=== PATIENT | male | born 1975 | race Caucasian/White ===

== ENCOUNTER → 2017-05-25 09:05 | Outpatient (CLI) | payer MEDICARE, SELFPAY ==
[2017-05-25 11:23] LABS: Alanine Aminotransferase 43 U/L (12-78); Albumin Level 4.3 gm/dL (3.4-5.0); Alkaline Phosphatase 69 U/L (46-116); Aspartate Amino Transferase 23 U/L (15-37); Bilirubin,Direct 0.1 mg/dL (0.0-0.2); Bilirubin,Total 0.4 mg/dL (0.2-1.0); Chol/HDL Ratio 4.2 (1-3.5); Cholesterol 214 mg/dL (140-200); HDL Cholesterol 51 mg/dL (27-67); LDL Cholesterol 150 mg/dL (0-130); Total Protein,Serum 8.4 gm/dL (6.4-8.2); Triglycerides 64 mg/dL (30-200); VLDL Cholesterol 13 mg/dL (0-40)
== END ==
PROVIDERS: Visit Provider Internal Medicine
DX: E11.9 Type 2 diabetes mellitus without complications (principal); I25.10 Atherosclerotic heart disease of native coronary artery without angina pectoris; I11.9 Hypertensive heart disease without heart failure; E78.4 Other hyperlipidemia
CPT/HCPCS: 36415; 80061; 80076

== ENCOUNTER → 2017-07-27 08:13 | Outpatient (CLI) | payer MEDICARE, SELFPAY ==
[2017-07-27 09:23] LABS: Alanine Aminotransferase 44 U/L (12-78); Albumin Level 4.4 gm/dL (3.4-5.0); Alkaline Phosphatase 75 U/L (46-116); Aspartate Amino Transferase 35 U/L (15-37); Bilirubin,Direct 0.2 mg/dL (0.0-0.2); Bilirubin,Indirect 0.4 mg/dL (0.0-0.9); Bilirubin,Total 0.6 mg/dL (0.2-1.0); Cholesterol 170 mg/dL (140-200); HDL Cholesterol 56 mg/dL (27-67); LDL Cholesterol 105 mg/dL (0-130); Total Protein,Serum 8.2 gm/dL (6.4-8.2); Triglycerides 43 mg/dL (30-200); VLDL Cholesterol 9 mg/dL (0-40)
== END ==
PROVIDERS: Visit Provider Internal Medicine
DX: E78.4 Other hyperlipidemia (principal); E11.9 Type 2 diabetes mellitus without complications
CPT/HCPCS: 36415; 80061; 80076

== ENCOUNTER → 2018-05-17 09:45 | Outpatient (CLI) | payer MEDICARE, SELFPAY ==
[2018-05-17 11:43] LABS: Alanine Aminotransferase 28 U/L (12-78); Albumin Level 4.5 gm/dL (3.4-5.0); Alkaline Phosphatase 78 U/L (46-116); Aspartate Amino Transferase 18 U/L (15-37); Bilirubin,Direct 0.1 mg/dL (0.0-0.2); Bilirubin,Indirect 0.4 mg/dL (0.0-0.9); Bilirubin,Total 0.5 mg/dL (0.2-1.0); Chol/HDL Ratio 5.7 (1-3.5); Cholesterol 249 mg/dL (140-200); HDL Cholesterol 44 mg/dL (27-67); LDL Cholesterol 188 mg/dL (0-130); Total Protein,Serum 8.4 gm/dL (6.4-8.2); Triglycerides 86 mg/dL (30-200); VLDL Cholesterol 17 mg/dL (0-40)
== END ==
PROVIDERS: Nurse Practitioner Family; PCP Family Medicine; Visit Provider Internal Medicine
DX: I11.9 Hypertensive heart disease without heart failure; I25.10 Atherosclerotic heart disease of native coronary artery without angina pectoris; E11.9 Type 2 diabetes mellitus without complications; E78.49 Other hyperlipidemia
CPT/HCPCS: 36415; 80061; 80076

== ENCOUNTER → 2018-06-21 08:43 | Outpatient (CLI) | payer MEDICARE, SELFPAY ==
[2018-06-21 09:11] LABS: Basophils # 0.1 K/mm3 (0-0.2); Eosinophils # 0.1 K/mm3 (0.0-0.4); Eosinophils % 1.5 % (0.1-12.0); Hematocrit 43.7 % (42.0-52.0); Hemoglobin 14.9 g/dL (14.1-18.0); Lymphocytes # 2.1 K/mm3 (0.7-4.5); Lymphocytes % 29.6 % (10-50); Mean Corpuscular HGB Conc 34.2 g/dL (31.8-35.4); Mean Corpuscular Hemoglobin 29.3 pg (27.0-31.2); Mean Corpuscular Volume 85.7 fl (80-94); Mean Platelet Volume 7.3 fl (7.4-10.4); Monocytes # 0.5 K/mm3 (0.1-1.0); Neutrophils # 4.2 K/mm3 (1.8-7.8); Neutrophils % 60.8 % (37.0-80.0); Platelet Count 468 K/mm3 (142-424); Red Cell Distribution Width 13.2 % (11.5-17.5); White Blood Count 6.9 K/mm3 (4.8-10.8)
[2018-06-21 11:20] LABS: Anion Gap 15.7 mEq/L (5-15); Blood Urea Nitrogen 20 mg/dL (7-18); Carbon Dioxide 27 mmol/L (21.0-32.0); Chloride 98 mmol/L (98-107); Creatinine,Serum 1.03 mg/dL (0.70-1.30); Estimated Glomerular Filt Rate 79 ml/min (>60); GFR (African American) 95 ML/MIN (>60); Glucose 156 mg/dL (74-106); Potassium 4.7 mmoL/L (3.5-5.1); Sodium 136 mmol/L (136-145)
== END ==
PROVIDERS: Visit Provider Surgery
DX: K40.20 Bilateral inguinal hernia, without obstruction or gangrene, not specified as recurrent (principal); K40.90 Unilateral inguinal hernia, without obstruction or gangrene, not specified as recurrent
CPT/HCPCS: 36415; 80048; 85025

== ENCOUNTER → 2018-11-15 09:29 | Outpatient (CLI) | payer MEDICARE, SELFPAY ==
[2018-11-15 10:55] LABS: Alanine Aminotransferase 33 U/L (12-78); Albumin Level 4.4 gm/dL (3.4-5.0); Alkaline Phosphatase 74 U/L (46-116); Aspartate Amino Transferase 18 U/L (15-37); Bilirubin,Direct 0.1 mg/dL (0.0-0.2); Bilirubin,Indirect 0.2 mg/dL (0.0-0.9); Bilirubin,Total 0.3 mg/dL (0.2-1.0); Chol/HDL Ratio 4.6 (1-3.5); Cholesterol 226 mg/dL (140-200); HDL Cholesterol 49 mg/dL (27-67); LDL Cholesterol 162 mg/dL (0-130); Total Protein,Serum 8.1 gm/dL (6.4-8.2); Triglycerides 74 mg/dL (30-200); VLDL Cholesterol 15 mg/dL (0-40)
== END ==
PROVIDERS: Visit Provider Internal Medicine
DX: E78.5 Hyperlipidemia, unspecified (principal); I11.9 Hypertensive heart disease without heart failure; I20.8 Other forms of angina pectoris
CPT/HCPCS: 36415; 80061; 80076

== ENCOUNTER → 2019-11-14 07:38 | Outpatient (CLI) | payer MEDICARE, SELFPAY ==
--- NOTE | 2019-11-14 07:39 | CA_ITS ---
APPROVED REPORT EXAM: Comprehensive 2D, Doppler, and color-flow Echocardiogram Cloud Automation Tester: Karine Landeros RVT Ht: 5 ft 5 in Wt: 210lbs BSA: 2.02 BP: 142/86 mmHg Indications: CAD,HTN,STENT,DM,HLD CP 2D Dimensions LVOT 1.83 cm (M/F) 1.5-2.5 M-Mode Dimensions RVDd 2.65 cm (0.9-2.6) LVDd 4.88 cm (3.5-5.7) LVDs 3.06 cm (3.5-5.7) IVSd 0.95 cm (0.6-1.1) PWd 0.87 cm (0.6-1.1) EF (Teich) 67.10% FS 37.30% EDV (Teich) 111.70 mL ESV (Teich) 36.70 mL LV Diastology E/A Ratio 0.79 Mitral Valve MV A Velocity 74.00 (40-130 cm/s) Left Ventricle Left atrium is mildly enlarged, left ventricle is normal size, mild concentric left ventricular hypertrophy, visually estimated ejection fraction 55% with no regional wall motion abnormality, grade 1 diastolic dysfunction seen without tissue Doppler evidence of raise left atrial pressure. Right Ventricle Right atrium and right ventricle are mildly enlarged with normal contractility. Aortic Valve Aortic valve is minimally thickened and fibrosed, there is no aortic stenosis or aortic insufficiency. Mitral Valve Mitral valve is grossly normal, there is mild mitral regurgitation. Tricuspid Valve Tricuspid valve grossly normal, there is mild tricuspid regurgitation, regurgitation jet velocity is inadequate for calculation of the right ventricular systolic pressure. Pulmonic Valve Pulmonic valve is poorly visualized. Great Vessels Aortic root is normal size. Pericardium No significant pericardial effusion noted. Conclusion 1. Mild biatrial enlargement, normal left ventricular size, mild concentric left ventricular hypertrophy, visually estimated ejection fraction 55% with no regional wall motion abnormality, grade 1 diastolic dysfunction seen without tissue Doppler evidence of raise left atrial pressure. 2. Mildly enlarged right ventricle with normal contractility. 3. Mild mitral and tricuspid regurgitation. 4. No significant pericardial effusion noted. Electronically signed by : Germán Pantoja, 11/14/2019 20:59:59
== END ==
PROVIDERS: PCP Family Medicine; Visit Provider Urology
DX: E78.5 Hyperlipidemia, unspecified (principal); I11.9 Hypertensive heart disease without heart failure; I20.8 Other forms of angina pectoris
CPT/HCPCS: 93306

== ENCOUNTER → 2019-11-15 07:13 | Outpatient (CLI) | payer MEDICARE, SELFPAY ==
[2019-11-15 09:03] LABS: Alanine Aminotransferase 25 U/L (12-78); Aspartate Amino Transferase 28 U/L (17-59); Bilirubin,Unconjugated 0.5 mg/dL (0.0-1.1)
[2019-11-15 09:04] LABS: Albumin Level 4.8 g/dl (3.5-5.0); Alkaline Phosphatase 65 U/L (38-126); Bilirubin,Direct 0.1 mg/dl (0.0-0.4); Bilirubin,Indirect 0.4 mg/dL (0.0-0.9); Bilirubin,Total 0.5 mg/dl (0.2-1.3); Chol/HDL Ratio 4.8 (1-3.5); Cholesterol 195 mg/dl (140-200); HDL Cholesterol 41 mg/dl (40-60); Total Protein,Serum 8.1 g/dl (6.3-8.2); Triglycerides 217 mg/dl (30-150); VLDL Cholesterol 43 mg/dL (0-40)
[2019-11-15 09:15] LABS: Direct LDL Cholesterol 111.11 mg/dL (100-129)
== END ==
PROVIDERS: Visit Provider Nurse Practitioner Family
DX: E11.9 Type 2 diabetes mellitus without complications (principal); I11.9 Hypertensive heart disease without heart failure; I25.10 Atherosclerotic heart disease of native coronary artery without angina pectoris; E78.49 Other hyperlipidemia; Z79.4 Long term (current) use of insulin
CPT/HCPCS: 36415; 80061; 80076

== ENCOUNTER 2021-03-08 19:48 | Emergency (ER) | payer MEDICARE, SELFPAY ==
[2021-03-08 19:44] VITALS: BP 119/72; PULSE 85; RESP 16; TEMP 36.4; O2SAT 95; BMI 39.1
[2021-03-08 19:47] VITALS: BMI 38.2
[2021-03-08 19:56] LABS: Basophils # 0.1 K/mm3 (0-0.2); Basophils % 1.2 % (0.1-2.0); Eosinophils # 0.3 K/mm3 (0.0-0.4); Eosinophils % 2.7 % (0.1-12.0); Hematocrit 44.6 % (42.0-52.0); Hemoglobin 15.4 g/dL (14.1-18.0); Lymphocytes # 4.4 K/mm3 (0.7-4.5); Lymphocytes % 39.6 % (10-50); Mean Corpuscular HGB Conc 34.6 g/dL (31.8-35.4); Mean Corpuscular Hemoglobin 30.2 pg (27.0-31.2); Mean Corpuscular Volume 87.3 fl (80-94); Mean Platelet Volume 8.3 fl (7.4-10.4); Monocytes # 0.7 K/mm3 (0.1-1.0); Monocytes % 5.8 % (1.7-9.3); Neutrophils # 5.7 K/mm3 (1.8-7.8); Neutrophils % 50.7 % (37.0-80.0); Platelet Count 480 K/mm3 (142-424); Red Blood Count 5.11 M/mm3 (4.60-6.20); White Blood Count 11.2 K/mm3 (4.8-10.8)
[2021-03-08 20:00] LABS: Chloride 100 mmol/L (98-107); Potassium 3.5 mmoL/L (3.5-5.1); Sodium 140 mmol/L (136-145)
[2021-03-08 20:02] LABS: Amylase 70 U/L (30-110); Blood Urea Nitrogen 13 mg/dl (9-20); Creatinine Clearance Estimated 172 mL/min (50-200); Estimated Glomerular Filt Rate 105 ml/min (>60); GFR (African American) 126 ML/MIN (>60)
[2021-03-08 20:03] LABS: Alanine Aminotransferase 28 U/L (12-78); Albumin/Globulin Ratio 1.4 (1.1-1.8); Alkaline Phosphatase 81 U/L (38-126); Anion Gap 21.5 mEq/L (5-15); Aspartate Amino Transferase 37 U/L (17-59); Bilirubin,Total 0.3 mg/dl (0.2-1.3); Calcium 9.9 mg/dl (8.4-10.2); Carbon Dioxide 22 mmol/L (22.0-30.0); Globulin 3.7 g/dL (1.3-3.2); Glucose 234 mg/dl (74-100); Lipase 88 U/L (23-300); Total Protein,Serum 8.7 g/dl (6.3-8.2)
--- NOTE | 2021-03-08 20:18 | HMH.EDGENADL ---
ED Disposition Clinical Impression: Alcoholic intoxication Qualifiers: Complication of substance-induced condition: uncomplicated Qualified Code(s): F10.920 - Alcohol use, unspecified with intoxication, uncomplicated Disposition: Left Against Medical Advice Condition on Discharge: Good Referrals: Oz Chapman MD [Primary Care Provider] - - Critical Care Critical Care Time: No Attestation: On 03/08/21, the high probability of a clinically significant, sudden or life threatening deterioration of the following system(s) required my full and direct attention, intervention and personal management. The time I documented below is in addition to time spent performing reported procedures but includes the following listed in this critical care notation. Medical Decision Making - Akhil Inquiry Pt receiving controlled substance: No Vital Signs: 03/08/21 19:44 Temperature 97.5 F L Temperature Source Oral Pulse Rate [Left] 85 Respiratory Rate 16 Blood Pressure [Right Arm] 119/72 Blood Pressure Mean [Right Arm] 87 02 Sat by Pulse Oximetry 95 Oxygen Delivery Method Room Air - Lab Data Lab Results 03/08/21 19:45: WBC 11.2 H, RBC 5.11, Hgb 15.4, Hct 44.6, MCV 87.3, MCH 30.2, MCHC 34.6, RDW 13.0, Plt Count 480 H, MPV 8.3, Neut % (Auto) 50.7, Lymph % (Auto) 39.6, [place] % (Auto) 5.8, Eos % (Auto) 2.7, Baso % (Auto) 1.2, Neut # (Auto) 5.7, Lymph # (Auto) 4.4, [place] # (Auto) 0.7, Eos # (Auto) 0.3, Baso # (Auto) 0.1 03/08/21 19:45: Sodium 140, Potassium 3.5, Chloride 100, Carbon Dioxide 22, Anion Gap 21.5 H, BUN 13, Creatinine 0.80, Estimated Creat Clear 172, Estimated GFR 105, Est GFR ( Amer) 126, Glucose 234 H, Calcium 9.9, Total Bilirubin 0.3, AST 37, ALT 28, Alkaline Phosphatase 81, Total Protein 8.7 H, Albumin 5.0, Globulin 3.7 H, Albumin/Globulin Ratio 1.4, Amylase 70, Lipase 88 03/08/21 19:45: Plasma/Serum Alcohol 183 H Result diagrams: 03/08/21 19:45 03/08/21 19:45 Orders (Tests/Meds): ED MEDICATIONS Generic Name Dose Route Start Last Admin Trade Name Kalpesh PRN Reason Stop Dose Admin Lactated Ringer's 500 mls @ 999 mls/hr 03/08/21 20:30 Lactated Ringer's 1000 Ml Bag IV 03/08/21 21:00 .Q31M RONALDO Discontinued Medications Generic Name Dose Route Start Last Admin Trade Name Kalpesh PRN Reason Stop Dose Admin Sodium Chloride 1,000 mls @ 999 mls/hr 03/08/21 19:48 03/08/21 20:04 Sod Chlor 0.9% 1000ml Bag IV 03/08/21 20:48 999 mls/hr .Q1H1M ONE Administration Ondansetron HCl 4 mg 03/08/21 20:16 Ondansetron 4mg/2ml Vial IV 03/08/21 20:17 ONCE ONE ORDERS Category Date Time Status BMP [Basic Metabolic Panel] Stat Lab 03/08/21 20:18 Ordered Medical Decision Narrative: In summary this is a 45-year-old male with history of diabetes who presents the emergency department for alcohol intoxication. On arrival the patient is alert and oriented with no focal deficits. He is nauseous with mild diffuse abdominal tenderness but otherwise full physical exam is reassuring including neurologic exam. Given this plan to obtain CBC, CMP, lipase. Labs remarkable for anion gap likely related to his heavy alcohol use. Plan to give 2 L of IV fluids along with Zofran and reassess and obtain repeat BMP. On reassessment after fluids the patient was ambulatory in the room and completely asymptomatic. He was clinically sober, alert, and oriented. He was stable on his feet. I informed him that we would like to obtain a repeat BMP make sure his labs had improved however he refused and stated he had to get home to see his kids before they left town and had to get home to take his medication. He was able to voice the possible causes of his elevated anion gap including diabetic emergencies and other life-threatening issues. He states if he feels any worse he will return to the ER but has to leave. Given this he was deemed to have decision-making capacity and left AMA. His is here and has no
[2021-03-08 20:22] LABS: Ethyl Alcohol 183 mg/dl (0-10)
[2021-03-08 21:44] VITALS: BP 143/71; PULSE 80; RESP 15; TEMP 36.7; O2SAT 99
[2021-03-08 22:04] LABS: Blood Urea Nitrogen 13 mg/dl (9-20); Calcium 9.7 mg/dl (8.4-10.2); Carbon Dioxide 28 mmol/L (22.0-30.0); Chloride 98 mmol/L (98-107); Creatinine Clearance Estimated 197 mL/min (50-200); Estimated Glomerular Filt Rate 122 ml/min (>60); GFR (African American) 148 ML/MIN (>60); Glucose 196 mg/dl (74-100); Sodium 136 mmol/L (136-145)
== END 2021-03-08 21:47 | disposition left against medical advice (07) ==
PROVIDERS: Emergency Provider Emergency Medicine; PCP Family Medicine
DX: F10.920 Alcohol use, unspecified with intoxication, uncomplicated (principal); E11.65 Type 2 diabetes mellitus with hyperglycemia; Z79.899 Other long term (current) drug therapy
CPT/HCPCS: 80048; 80053; 82150; 83690; 85025; 96365; 99282

== ENCOUNTER 2021-11-08 08:53 | Emergency (ER) | payer MEDICARE, SELFPAY ==
[2021-11-08 08:53] VITALS: BP 136/81; PULSE 73; RESP 18; TEMP 37; O2SAT 97; BMI 33.5
--- NOTE | 2021-11-08 09:04 | HMH.EDGENADL ---
ED Disposition Clinical Impression: Infected dental caries Disposition: Home, Self-Care Condition on Discharge: Good Instructions: DI for Tooth Abscess, DI for Tooth Decay Additional Instructions: Clindamycin as prescribed. Epps as needed for pain Additional instructions for DENTAL PROBLEMS: See a dentist as soon as possible for further evaluation. Return immediately if you have an uncontrollable fever greater than 102 degrees, difficulty breathing or shortness of breath, persistent vomiting, or inability to swallow. Additional instructions for CONTROLLED SUBSTANCES: You have been prescribed a medication that is a controlled substance. Controlled substances include pain medications known as opiates and sedative nerve medications known as benzodiazepines. Tramadol, fioricet, and gabapentin are also controlled substances. Some common opiates include: Codeine (such as Tylenol #3) Hydrocodone (Vicodin, Lortab, Lorcet, Epps) Oxycodone (Percocet, Percodan, Oxycodone, Oxy IR) Some common benzodiazepines include: Diazepam (Valium) Lorazepam (Ativan) Alprazolam (Xanax) Clonazepam (Klonopin) Oxazepam (Serax) All of these controlled substances are highly addictive and frequently abused. Misuse can and frequently does lead to addiction as well as overdose and . Medication should be stored in a locked cabinet or other secure storage unit. Do not store the medication in a motor vehicle. Short term supplies, 3 days or less, are prescribed because of the highly addictive nature of the medication. Any of the controlled substance medication NOT taken should be disposed of properly and NOT SAVED. The recommended method of disposing of unused medications is: Place the medicines in a sealable plastic bag. If the medicine is a solid, crush it or add water to dissolve it. Add something undesirable (cat litter, coffee grounds, etc.) Dispose of sealed bag in household trash Do not flush or pour unused medicines down a sink or drain. Controlled substances should not be shared, given away or sold. Because of the addictive nature and frequent abuse, these medications are sometimes stolen. These medications should be kept in a safe place where they cannot be stolen. Do not keep them in your car or purse. Lost or stolen prescriptions for controlled substances WILL NOT BE REFILLED in this emergency department, regardless of whether a police report was filed. Prescriptions: Hydrocod/Acet 5/325 mg [Epps 5/325mg tablet] 1 tab PO Q6HP PRN #10 tab PRN Reason: Pain Transmission Status: Sent to [facility] clindamycin HCL [Clindamycin HCl] 300 mg PO QID #40 cap Transmission Status: Pending to [facility] Referrals: Oz Chapman MD [Primary Care Provider] - - Critical Care Critical Care Time: No Attestation: On 11/08/21, the high probability of a clinically significant, sudden or life threatening deterioration of the following system(s) required my full and direct attention, intervention and personal management. The time I documented below is in addition to time spent performing reported procedures but includes the following listed in this critical care notation. Medical Decision Making - Akhil Inquiry Pt receiving controlled substance: Yes Akhli was queried for this patient: Yes Risks and benefits of using a controlled substance: were discussed with pt by me General Adult HPI - General Stated complaint: RT side mouth pain Time Seen by Provider: 11/08/21 09:00 - History of Present Illness HPI narrative: States I get a toothache . It has a hole in it . States that he has had a right upper tooth ache for 1 week with some facial swelling. No fever noted. States he does not have a dentist and cannot get into 1 today so he came to the emergency department. He has been using Orajel. The pain keeps him up at night. - Related Data Home Medications Medication Instructio
[2021-11-08 09:05] VITALS: BP 137/72; PULSE 69; O2SAT 94
--- NOTE | 2021-11-08 09:05 | PC.NURSE ---
0901 ED MD AT BEDSIDE
[2021-11-08 09:15] VITALS: BP 137/72; PULSE 70; RESP 20; TEMP 37; O2SAT 96
--- NOTE | 2021-11-08 09:15 | PC.NURSE ---
Hooked patient up to monitor, call light within reach. He denies a blanket at this time. Voices no other needs.
== END 2021-11-08 09:15 | disposition home or self-care (01) ==
PROVIDERS: Emergency Provider Emergency Medicine; PCP Family Medicine
DX: K02.9 Dental caries, unspecified (principal)
CPT/HCPCS: 99282

== ENCOUNTER → 2022-02-02 08:20 | Outpatient (CLI) | payer MEDICARE, SELFPAY ==
[2022-02-02 10:36] LABS: Alanine Aminotransferase 20 U/L (12-78); Alkaline Phosphatase 78 U/L (38-126); Aspartate Amino Transferase 26 U/L (17-59); Bilirubin,Direct 0.1 mg/dl (0.0-0.4); Bilirubin,Indirect 0.2 mg/dL (0.0-0.9); Bilirubin,Total 0.3 mg/dl (0.2-1.3); Bilirubin,Unconjugated 0.2 mg/dL (0.0-1.1)
[2022-02-02 10:37] LABS: Chol/HDL Ratio 5.9 (1-3.5); Cholesterol 249 mg/dl (140-200); HDL Cholesterol 42 mg/dl (40-60); Total Protein,Serum 8.1 g/dl (6.3-8.2); Triglycerides 211 mg/dl (30-150); VLDL Cholesterol 42 mg/dL (0-40)
[2022-02-02 10:48] LABS: Direct LDL Cholesterol 145.42 mg/dL (100-129)
== END ==
PROVIDERS: PCP Family Medicine; Visit Provider Internal Medicine
DX: E78.2 Mixed hyperlipidemia (principal); I11.9 Hypertensive heart disease without heart failure; I25.10 Atherosclerotic heart disease of native coronary artery without angina pectoris
CPT/HCPCS: 36415; 80061; 80076

== ENCOUNTER → 2022-06-01 10:13 | Outpatient (CLI) | payer MEDICARE, SELFPAY ==
[2022-06-01 11:28] LABS: Bilirubin,Unconjugated 0.1 mg/dL (0.0-1.1)
[2022-06-01 11:29] LABS: Alanine Aminotransferase 36 U/L (12-78); Albumin Level 4.9 g/dl (3.5-5.0); Alkaline Phosphatase 62 U/L (38-126); Aspartate Amino Transferase 39 U/L (17-59); Bilirubin,Direct 0.2 mg/dl (0.0-0.4); Bilirubin,Indirect 0.1 mg/dL (0.0-0.9); Bilirubin,Total 0.3 mg/dl (0.2-1.3); Chol/HDL Ratio 4.6 (1-3.5); Cholesterol 223 mg/dl (140-200); HDL Cholesterol 48 mg/dl (40-60); Triglycerides 223 mg/dl (30-150); VLDL Cholesterol 45 mg/dL (0-40)
[2022-06-01 11:40] LABS: Direct LDL Cholesterol 129.17 mg/dL (100-129)
== END ==
PROVIDERS: PCP Family Medicine; Visit Provider Nurse Practitioner Family
DX: E78.2 Mixed hyperlipidemia (principal); I11.9 Hypertensive heart disease without heart failure; I25.10 Atherosclerotic heart disease of native coronary artery without angina pectoris
CPT/HCPCS: 36415; 80061; 80076

== ENCOUNTER → 2022-11-06 10:40 | Outpatient (CLI) | payer MEDICARE, SELFPAY ==
--- NOTE | 2022-11-06 10:57 | CA_ITS ---
FINAL REPORT TECHNIQUE: Color Doppler, duplex Doppler and fallon scale sonography of the bilateral neck arterial vasculature was performed. Velocities were measured in the carotid arteries. Stenosis evaluation based on the validated velocity criteria. CLINICAL HISTORY: BRUIT,HTN,HLD COMPARISON: None FINDINGS: The peak systolic velocity of the right common carotid artery is 114 cm/s. The peak systolic velocity of the right internal carotid artery is 76 cm/s and end diastolic velocity 23 cm/s. The ICA/CCA ratio is 0.82. A mild amount of plaque is present. The right external carotid artery is patent. The right vertebral artery is patent with antegrade flow. The peak systolic velocity of the left common carotid artery is 141 cm/s. The peak systolic velocity of the left internal carotid artery is 133 cm/s and end diastolic velocity 21 cm/s. The ICA/CCA ratio is 0.94. A mild amount of plaque is present. The left external carotid artery is patent.The left vertebral artery is patent with antegrade flow. IMPRESSION: Less than 50% bilateral carotid stenoses. Bilateral patent vertebral arteries with antegrade flow. If indicated, CTA or MRA could further evaluate. Reviewed, Interpreted and Dictated by Rafael Meade III, MD Transcribed by Gris Devlin Authenticated and [facility]
== END ==
PROVIDERS: PCP Family Medicine; Visit Provider Family Medicine
DX: R09.89 Other specified symptoms and signs involving the circulatory and respiratory systems (principal)
CPT/HCPCS: 93880

== ENCOUNTER 2022-11-25 19:48 | Emergency (ER) | payer MEDICARE, SELFPAY ==
--- NOTE | 2022-11-25 19:24 | ECG_ITS ---
APPROVED REPORT Exam: Resting ECG HR:98 bpm ECG Measurements Heart Rate 98 AXES UT 152 P 70 QRSd 120 QRS 48 QT 364 T 53 QTc 419 Conclusion SINUS RHYTHM MODERATE INTRAVENTRICULAR CONDUCTION DELAY [110+ ms QRS DURATION] BORDERLINE ECG UNCONFIRMED REPORT Electronically signed by : Jaime Drummond MD 11/26/2022 19:58:33
[2022-11-25 19:29] VITALS: BP 152/76; PULSE 95; RESP 16; TEMP 36.8; O2SAT 98; BMI 36.9
--- NOTE | 2022-11-25 19:36 | XR_ITS ---
PROCEDURE INFORMATION: Exam: XR Chest Exam date and time: 11/25/2022 7:37 PM Age: 47 years old Clinical indication: Pain; Angina pectoris; Additional info: Chest pain TECHNIQUE: Imaging protocol: Radiologic exam of the chest. Views: 1 view. COMPARISON: ABDPELW CT ABD PELVIS W/ CONTRAST 11/24/2016 10:12 AM FINDINGS: Lungs: Unremarkable. No consolidation. Pleural spaces: Unremarkable. No pleural effusion. No pneumothorax. Heart/Mediastinum: Unremarkable. No cardiomegaly. Bones/joints: No acute osseous findings. IMPRESSION: No acute pulmonary findings.
[2022-11-25 19:44] LABS: Basophils # 0.1 K/mm3 (0-0.2); Basophils % 0.6 % (0.1-2.0); Eosinophils # 0.1 K/mm3 (0.0-0.4); Eosinophils % 1.4 % (0.1-12.0); Hematocrit 46.1 % (42.0-52.0); Hemoglobin 15.1 g/dL (14.1-18.0); Lymphocytes # 3.2 K/mm3 (0.7-4.5); Mean Corpuscular HGB Conc 32.9 g/dL (31.8-35.4); Mean Corpuscular Hemoglobin 29.5 pg (27.0-31.2); Mean Corpuscular Volume 89.6 fl (80-94); Mean Platelet Volume 8.3 fl (7.4-10.4); Monocytes # 0.6 K/mm3 (0.1-1.0); Monocytes % 5.9 % (1.7-9.3); Neutrophils # 5.5 K/mm3 (1.8-7.8); Neutrophils % 58.1 % (37.0-80.0); Platelet Count 412 K/mm3 (142-424); Red Blood Count 5.14 M/mm3 (4.60-6.20); Red Cell Distribution Width 13.1 % (11.5-17.5); White Blood Count 9.5 K/mm3 (4.8-10.8)
[2022-11-25 19:49] LABS: Chloride 97 mmol/L (98-107); Potassium 3.4 mmoL/L (3.5-5.1); Sodium 137 mmol/L (136-145)
[2022-11-25 19:51] LABS: Blood Urea Nitrogen 16 mg/dl (9-20); Creatinine Clearance Estimated 163 mL/min (50-200); Estimated Glomerular Filt Rate 90 ml/min (>60); GFR (African American) 109 ML/MIN (>60)
[2022-11-25 19:52] LABS: Alanine Aminotransferase 28 U/L (12-78); Albumin Level 4.9 g/dl (3.5-5.0); Albumin/Globulin Ratio 1.2 (1.1-1.8); Alkaline Phosphatase 74 U/L (38-126); Anion Gap 16.4 mEq/L (5-15); Aspartate Amino Transferase 40 U/L (17-59); Bilirubin,Total 0.5 mg/dl (0.2-1.3); Calcium 9.6 mg/dl (8.4-10.2); Carbon Dioxide 27 mmol/L (22.0-30.0); Globulin 4.1 g/dL (1.3-3.2); Glucose 144 mg/dl (74-100)
[2022-11-25 20:01] LABS: NT Pro Brain Natriuretic Pep. < 20.0 pg/mL (0-125)
[2022-11-25 20:17] LABS: Troponin I < 0.01 ng/ml (0.00-0.034)
--- NOTE | 2022-11-25 20:26 | CT_ITS ---
PROCEDURE INFORMATION: Exam: CTA Neck With Contrast Exam date and time: 11/25/2022 8:40 PM Age: 47 years old Clinical indication: Syncope and collapse; Additional info: Repeated near syncope with positional changes TECHNIQUE: Imaging protocol: Computed tomographic angiography of the neck with contrast. 3D rendering (Not supervised by radiologist): MIP and/or 3D reconstructed images were created by the technologist. Radiation optimization: All CT scans at this facility use at least one of these dose optimization techniques: automated exposure control; mA and/or kV adjustment per patient size (includes targeted exams where dose is matched to clinical indication); or iterative reconstruction. Contrast material: ISO 370; Contrast volume: 100 ml; Contrast route: INTRAVENOUS (IV); REPORTING DATA: Count of CT and Cardiac NM exams in prior 12 months: This patient has received 0 known CTs and 0 known cardiac nuclear medicine studies in the 12 months prior to the current study. COMPARISON: US CA CAROTID DUPLEX BI 11/06/2022 11:00 AM FINDINGS: Right common carotid artery: No stenosis. No dissection or occlusion. Right internal carotid artery: No stenosis of the extracranial segment. No dissection or occlusion. Right external carotid artery: No occlusion or stenosis of the origin. Left common carotid artery: No stenosis. No dissection or occlusion. Left internal carotid artery: No stenosis of the extracranial segment. No dissection or occlusion. Left external carotid artery: No occlusion or stenosis of the origin. Right vertebral artery: No stenosis. No dissection or occlusion. Left vertebral artery: No stenosis. No dissection or occlusion. Soft tissues: Normal. No significant soft tissue swelling. Bones/joints: No acute fracture. C5-C6 degenerative changes. IMPRESSION: No stenosis or occlusion. No dissection. REFERENCES: NASCET CRITERIA. The degree of stenosis in the cervical segment of the internal carotid artery is based on NASCET criteria. Normal is no stenosis. Mild is less than 50% stenosis. Moderate is 50-69% stenosis. Severe is 70% to 99% stenosis. Total occlusion is no detectable patent lumen.
--- NOTE | 2022-11-25 20:26 | CT_ITS ---
PROCEDURE INFORMATION: Exam: CTA Head With Contrast, Arteriography Exam date and time: 11/25/2022 8:40 PM Age: 47 years old Clinical indication: Syncope and collapse; Additional info: Repeated near syncope with positional changes TECHNIQUE: Imaging protocol: Computed tomographic angiography of the head with contrast. Exam focused on the arteries. 3D rendering (Not supervised by radiologist): MIP and/or 3D reconstructed images were created by the technologist. Radiation optimization: All CT scans at this facility use at least one of these dose optimization techniques: automated exposure control; mA and/or kV adjustment per patient size (includes targeted exams where dose is matched to clinical indication); or iterative reconstruction. Contrast material: ISOVUE; Contrast volume: 100 ml; Contrast route: INTRAVENOUS (IV); REPORTING DATA: Count of CT and Cardiac NM exams in prior 12 months: This patient has received 0 known CTs and 0 known cardiac nuclear medicine studies in the 12 months prior to the current study. COMPARISON: US CA CAROTID DUPLEX BI 11/06/2022 11:00 AM FINDINGS: ANTERIOR CIRCULATION: Right internal carotid artery: Intracranial segment is patent with no significant stenosis. No aneurysm. Right middle cerebral artery: No occlusion or significant stenosis. No aneurysm. Right anterior cerebral artery: No occlusion or significant stenosis. No aneurysm. Left internal carotid artery: Intracranial segment is patent with no significant stenosis. No aneurysm. Left middle cerebral artery: No occlusion or significant stenosis. No aneurysm. Left anterior cerebral artery: No occlusion or significant stenosis. No aneurysm. POSTERIOR CIRCULATION: Right vertebral artery: No occlusion or significant stenosis. No aneurysm. Left vertebral artery: No occlusion or significant stenosis. No aneurysm. Basilar artery: No occlusion or significant stenosis. No aneurysm. Right posterior cerebral artery: origin. No occlusion or significant stenosis. No aneurysm. Left posterior cerebral artery: No occlusion or significant stenosis. No aneurysm. Brain: No definite mass, mass effect, or midline shift. Cerebral ventricles: No ventriculomegaly. Bones/joints: Unremarkable. No acute fracture. Soft tissues: Unremarkable. IMPRESSION: No large vessel stenosis or occlusion. No aneurysm.
--- NOTE | 2022-11-25 20:26 | CT_ITS ---
PROCEDURE INFORMATION: Exam: CT Head Without Contrast Exam date and time: 11/25/2022 8:40 PM Age: 47 years old Clinical indication: Syncope and collapse; Additional info: Repeated near syncope with positional changes TECHNIQUE: Imaging protocol: Computed tomography of the head without contrast. Radiation optimization: All CT scans at this facility use at least one of these dose optimization techniques: automated exposure control; mA and/or kV adjustment per patient size (includes targeted exams where dose is matched to clinical indication); or iterative reconstruction. REPORTING DATA: Count of CT and Cardiac NM exams in prior 12 months: This patient has received 0 known CTs and 0 known cardiac nuclear medicine studies in the 12 months prior to the current study. COMPARISON: US CA CAROTID DUPLEX BI 11/06/2022 11:00 AM FINDINGS: Brain: Normal. No hemorrhage. Unremarkable white matter. No mass effect. Cerebral ventricles: No ventriculomegaly. Paranasal sinuses: Mucous retention cyst within the left maxillary and left frontal sinuses. Minimal scattered mucosal thickening within the ethmoid air cells. Mastoid air cells: Visualized mastoid air cells are well aerated. Bones/joints: Unremarkable. No acute fracture. Soft tissues: Unremarkable. IMPRESSION: No acute intracranial findings.
--- NOTE | 2022-11-25 20:28 | HMH.EDGENADL ---
Discharge Plan Disposition Patient Disposition: Home, Self-Care Prescriptions Prescriptions: No Action glimepiride 4 mg tablet 4 mg PO QAM gemfibrozil [Lopid] 600 mg tablet 600 mg PO BID pantoprazole [Protonix] 40 mg tablet,delayed release (DR/EC) 40 mg PO QAM trazodone 50 mg tablet 50 mg PO QHS aspirin [Adult Low Dose Aspirin] 81 mg tablet,delayed release (DR/EC) 81 mg PO DAILY atorvastatin 80 mg tablet 80 mg PO DAILY bupropion HCl [Wellbutrin XL] 300 mg tablet extended release 24 hr 300 mg PO DAILY gabapentin [Neurontin] 300 mg capsule 300 mg PO DAILY cholecalciferol (vitamin D3) 1,000 unit capsule 1,000 unit PO DAILY metformin 500 mg tablet 500 mg PO BID Patient Comments: TAKE 1 TABLET BY MOUTH TWICE DAILY nitroglycerin 0.4 mg tablet, sublingual 0.4 mg SUBLINGUAL Q5M PRN (Reason: .) Qty: 25 0RF sertraline 50 mg tablet 50 mg PO DAILY Patient Comments: TAKE 1 TABLET BY MOUTH ONCE DAILY carvedilol 12.5 mg tablet 12.5 mg PO BID Qty: 180 2RF lisinopril-hydrochlorothiazide 20-12.5 mg tablet See Rx Instructions .ROUTE .COMPLEX Qty: 180 1RF Dose Instruction: TAKE 2 TABLETS BY MOUTH ONCE DAILY FOR BLOOD PRESSURE Rx Instructions: TAKE 2 TABLETS BY MOUTH ONCE DAILY FOR BLOOD PRESSURE clopidogrel 75 mg tablet See Rx Instructions .ROUTE .COMPLEX Qty: 90 1RF Dose Instruction: Take 1 tablet by mouth once daily Rx Instructions: Take 1 tablet by mouth once daily insulin NPH isoph U-100 human 100 unit/mL suspension 48 unit SQ QAM Rx Instructions: 92 units QHS Referrals Follow up/Referrals: Oz Chapman MD [Primary Care Provider] - See instructions Activity Restrictions/Add. Instructions Additional Instructions/Restrictions: Please follow-up with Dr. Maldonado as previously instructed return with any worsening symptoms. No neuro or cardiovascular emergency was identified today. Clinical Impressions Clinical Impression: Near syncope, Anxiety, Orthostatic dizziness Discharge ED Provider: Diana Pelayo General Adult HPI General Chief complaint: Chest Pain Stated complaint: cp Time Seen by Provider: 11/25/22 20:17 Mode of Arrival: EMS Limitations: No Limitations Description of Symptoms (Recalled from ER Triage Doc. by RN): 47 yo male presents with cc of chest pain. States he was sitting at the table eating, when he began experiencing chest pain likening it to pain he had felt before. Further states he became slightly dyspneic, denied nausea, denied pain radiation. Patient is alert to name, re-oriented per staff to location and my chest hurts -repeatedly. told ems that his serum glucose had decreased to the 60's and they were trying to keep it up (why he was eating) when the chest pain began. History of Present Illness HPI narrative: Patient is a 47-year-old male presenting today with repetitive near syncopal episodes. States he was eating dinner with his family and they state that he began to seemingly lose consciousness these episodes lasted a few seconds he never lost complete stone did not fall. Called EMS and he continued to have these repetitive episodes while on a monitor and was normal normal vital signs no evidence of any significant arrhythmia. He never had any focal neurologic deficits. Tells me that he has had very severe stress in his life with his mother just moving in recently. Also states has been having some mild chest discomfort over the last few days. Related Data Home Medications Medication Instructions Recorded Confirmed gemfibrozil 600 mg tablet (Lopid) 600 mg PO BID . 04/23/17 06/01/22 glimepiride 4 mg tablet 4 mg PO QAM Diabetes 04/23/17 06/01/22 pantoprazole 40 mg tablet,delayed 40 mg PO QAM GERD 04/23/17 06/01/22 release (Protonix) trazodone 50 mg tablet 50 mg PO QHS . 04/23/17 06/01/22 cholecalciferol (vitamin D3) 25 1,000 unit PO DA
[2022-11-25 20:30] VITALS: BP 114/60; PULSE 78; RESP 20; O2SAT 94
--- NOTE | 2022-11-25 20:34 | PC.NURSE ---
PT GOING TO CT
[2022-11-25 21:00] VITALS: BP 124/65; PULSE 74; RESP 18; O2SAT 95
[2022-11-25 21:30] VITALS: BP 119/72; PULSE 69; RESP 18; O2SAT 97
[2022-11-25 21:56] VITALS: BP 111/63; PULSE 82; RESP 19; TEMP 36.7; O2SAT 98
== END 2022-11-25 21:59 | disposition home or self-care (01) ==
PROVIDERS: Emergency Provider Student in an Organized Health Care Education/Training Program; PCP Family Medicine
DX: R07.9 Chest pain, unspecified (principal); R55 Syncope and collapse; I25.10 Atherosclerotic heart disease of native coronary artery without angina pectoris; I11.9 Hypertensive heart disease without heart failure; E11.9 Type 2 diabetes mellitus without complications; E78.5 Hyperlipidemia, unspecified; Z87.891 Personal history of nicotine dependence
CPT/HCPCS: 70450; 70496; 70498; 71045; 80053; 83880; 84484; 85025; 93005; 96360; 99285; Q9967

== ENCOUNTER 2023-12-20 19:23 | Observation (INO) | payer MEDICARE, SELFPAY ==
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
--- NOTE | 2023-12-20 19:35 | ED_ITS ---
Discharge Plan Disposition Patient Disposition: Admitted Condition: Good Clinical Impressions Clinical Impression: Metabolic acidosis, Acute hyperglycemia Discharge ED Provider: Jessee Manzo General Adult HPI <JAMARI Hyatt - Last Filed: 12/20/23 19:45> General Chief complaint: Extremity Injury, Lower Stated complaint: AO 12/20/23 injury left foot Time Seen by Provider: 12/20/23 19:27 Related Data Home Medications ?Medication ?Instructions ?Recorded ?Confirmed aspirin 81 mg tablet 81 mg PO DAILY 12/21/23 12/21/23 carvedilol 12.5 mg tablet 12.5 mg PO BID 12/21/23 12/21/23 clopidogrel 75 mg tablet 75 mg PO DAILY 12/21/23 12/21/23 insulin human U-100 NPH-regulr 40 - 50 unit SQ AM 12/21/23 12/21/23 70-30 mix 100 unit/mL subcutaneous susp (Novolin 70/30 U-100 Insulin) insulin human U-100 NPH-regulr 100 unit SQ PM 12/21/23 12/21/23 70-30 mix 100 unit/mL subcutaneous susp (Novolin 70/30 U-100 Insulin) lisinopril 20 mg tablet 20 mg PO DAILY 12/21/23 12/21/23 metformin 500 mg tablet 1,000 mg PO BIDWMEAL 12/21/23 12/21/23 pantoprazole 40 mg tablet,delayed 40 mg PO BID 12/21/23 12/21/23 release sertraline 50 mg tablet 50 mg PO DAILY 12/21/23 12/21/23 Allergies Allergy/AdvReac Type Severity Reaction Status Date / Time No Known Allergies Allergy Verified 06/01/22 09:46 <Jessee Manzo MD - Last Filed: 12/21/23 18:16> History of Present Illness HPI narrative: Please note that above description of symptoms, in this electronic medical record under categorization of recalled from ER triage doctor by RN are reflective of an initial nursing assessment, however, is not reflective of my full history and physical exam that was personally taken and clarified. Consequentially, this preceding description of symptoms, which may include the patient's categorized chief complaint in the EMR, do not reflect my personal clinical impression, and the ultimate description of history of present illness and patient stated complaints should be deferred to this section of the note. Unless stated otherwise or congruent with this section of the note, additional signs, symptoms, or incongruence should be interpreted as inaccurate with my clinical impression. <JAMARI Hyatt - Last Filed: 12/20/23 19:45> ROS Obtained: Yes Systems reviewed as appropriate & no additional complaints except as documented Physical Exam <JAMARI Hyatt - Last Filed: 12/20/23 19:45> General General appearance: alert and in no apparent distress Head Head exam: atraumatic and normal inspection Eye Eye exam: Present normal appearance, PERRL and EOMI ENT ENT exam: Present normal exam, normal oropharynx and mucous membranes moist Neck Neck exam: Present normal inspection, full ROM and trachea midline; Absent lymphadenopathy Chest Chest inspection: Present normal inspection and symmetric chest wall rise Respiratory Respiratory exam: Present normal lung sounds bilaterally; Absent accessory muscle use Cardiovascular Cardiovascular exam: Present regular rate, normal rhythm, normal heart sounds, +S1 and +S2 Abdominal Exam Abdominal exam: Present soft and normal bowel sounds; Absent tenderness, guarding or rebound Extremities Exam Extremities exam: Present normal inspection and full ROM Neurological Exam Neurological exam: Present alert, oriented X3 and CN II-XII intact Psychiatric Psychiatric exam: Present normal affect and normal mood Skin Skin exam: Present warm, dry and normal color Lymphatic Lymphatic Findings: no adenopathy <Jessee Manzo MD - Last Filed: 12/21/23 18:16> General General appearance: appears intoxicated, obese and other (Unpleasant, speaking profanities) Cardiovascular Cardiovascular exam: Present tachycardia Abdominal Exam Abdominal exam: Absent distention Extremities Exam Extremities exam: Present tenderness Medical Decision Making <JAMARI Hyatt - Last Filed: 12/20/23 19:45> Medical Records Screening: Per USPSTF and CDC recommendations, given the prevalence of disease in our region, it is our hospital?s policy to screen for HIV and viral Hepatitis for all patients aged 18 and over and those with ongoing risk factors. Vital Signs: 12/20/23 19:37 12/20/23 20:30 12/20/23 21:00 Temperature 98.9 F Temperature Source Oral Pulse Rate 88 Pulse Rate [Right Brachial] 121 H Respiratory Rate 18 14 18 Blood Pressure 133/82 177/92 H Blood Pressure [Right Arm] 131/83 Blood Pressure Mean [Right Arm] 99 Blood Pressure Source Blood Pressure Source [Right Arm] Automatic Cuff Blood Pressure Position Blood Pressure Position [Right Arm] Supine 02 Sat by Pulse Oximetry 100 94 L Oxygen Delivery Method Room Air 12/20/23 22:37 Temperature 98.1 F Temperature Source Oral Pulse Rate 72 Pulse Rate [Right Brachial] Respiratory Rate 16 Blood Pressure 136/78 Blood Pressure [Right Arm] Blood Pressure Mean [Right Arm] Blood Pressure Source Automatic Cuff Blood Pressure Source [Right Arm] Blood Pressure Position Supine Blood Pressure Position [Right Arm] 02 Sat by Pulse Oximetry Oxygen Delivery Method Room Air Lab Data Lab Results 12/20/23 19:50: WBC 14.0 H, RBC 5.37, Hgb 16.9, Hct 48.3, MCV 89.9, MCH 31.4 H, MCHC 34.9, RDW 13.6, Plt Count 424, MPV 8.5, Neut % (Auto) 54.6, Lymph % (Auto) 34.8, [place] % (Auto) 6.8, Eos % (Auto) 2.2, Baso % (Auto) 1.6, Neut # (Auto) 7.6, Lymph # (Auto) 4.9 H, [place] # (Auto) 1.0, Eos # (Auto) 0.3, Baso # (Auto) 0.2, Sodium 137, Potassium 3.2 L, Chloride 97 L, Carbon Dioxide 18 L, Anion Gap 25.2 H, BUN 13, Creatinine 0.70, Estimated Creat Clear 174, Estimated GFR 120, Est GFR ( Amer) 146, Glucose 200 H, Hemoglobin A1c 8.3 H, Lactate 4.6 H, Calcium 9.7, Total Bilirubin 0.7, AST 64 H, ALT 129 H, Alkaline Phosphatase 122, Troponin I < 0.01, Total Protein 9.6 H, Albumin 4.7, Globulin 4.9 H, A lbumin/Globulin Ratio 1.0 L, Lipase 101, TSH 3.42, Thyroxine (T4) 10.7, P lasma/Serum Alcohol 263 H, Acetone Level None detected, HIV 1&2 Antibody Rapid Nonreactive 12/20/23 20:00: VBG pH 7.37, VBG pCO2 35.3, VBG pO2 124.6 H, VBG HCO3 20.0 L, V BG Total CO2 21.1 L, VBG O2 Saturation 98.6 H, VBG Base Excess -5.2 L, VBG Lactic Acid 5.2 H 12/21/23 05:48 12/21/23 15:48 Orders (Tests/Meds): ED MEDICATIONS Discontinued Medications Generic Name Dose Route Start Last Admin Trade Name Kalpesh PRN Reason Stop Dose Admin Acetaminophen 1,000 mg 12/20/23 23:53 12/21/23 11:00 Acetaminophen 500mg Tab PO 01/19/24 23:52 1,000 mg Q6HP PRN Administration Mild to Moderate Pain (1-6) Diazepam 10 mg 12/20/23 22:56 Diazepam 10mg/2ml Syringe IV 01/19/24 22:55 Q1HP PRN CIWA >16 Folic Acid 1 mg 12/21/23 09:00 12/21/23 08:18 Folic Acid 1mg Tablet PO 01/20/24 08:59 1 mg DAILY RONALDO Administration Lactated Ringer's 1,000 mls @ 999 mls/hr 12/20/23 20:03 12/20/23 20:14 Lactated Ringer's 1000 Ml Bag IV 12/20/23 21:03 999 mls/hr .Q1H1M ONE Administration Sodium Chloride 1,000 mls @ 150 mls/hr 12/20/23 22:30 12/20/23 23:30 Sod Chlor 0.9% 1000ml Bag IV 01/19/24 22:29 Not Given .[id number] RONALDO Sodium Chloride 2,000 mls @ 999 mls/hr 12/20/23 20:30 12/20/23 23:35 Sod Chlor 0.9% 1000ml Bag IV 01/19/24 20:29 Not Given .Q2H1M RONALDO Potassium Chloride/Sodium Chloride 1,000 mls @ 75 mls/hr 12/20/23 20:30 12/20/23 23:30 Kcl 40 Meq-Ns 1,000ml Iv Soln IV 01/19/24 20:29 Not Given .[id number] RONALDO Insulin Human Regular 100 unit 101 mls @ 9.621 mls/hr 12/20/23 20:26 12/20/23 22:22 / Sodium Chloride IV 01/19/24 20:25 0.09 units/kg/hr .[id number] RONALDO 8.62 mls/hr Titration Protocol 0.1 UNITS/KG/HR Potassium Chloride/Sodium Chloride 1,000 mls @ 75 mls/hr 12/20/23 21:15 12/20/23 21:31 Kcl 20 Meq In Ns 1,000 Ml Iv Soln IV 01/19/24 21:14 75 mls/hr .[id number] RONALDO Administration Sodium Chloride 1,000 mls @ 150 mls/hr 12/20/23 22:48 12/20/23 23:30 Sod Chlor 0.9% 1000ml Bag IV 01/19/24 22:29 Not Given .[id number] RONALDO Sodium Chloride 2,000 mls @ 999 mls/hr 12/20/23 22:48 12/20/23 23:29 Sod Chlor 0.9% 1000ml Bag IV 01/19/24 20:29 Not Given .Q2H1M RONALDO Potassium Chloride/Sodium Chloride 1,000 mls @ 75 mls/hr 12/20/23 22:48 12/20/23 23:30 Kcl 20 Meq In Ns 1,000 Ml Iv Soln IV 01/19/24 21:14 Not Given .[id number] RONALDO Insulin Human Regular 100 unit 101 mls @ 9.621 mls/hr 12/20/23 22:48 12/20/23 23:31 / Sodium Chloride IV 01/19/24 20:25 Not Given .[id number] RONALDO Protocol 0.1 UNITS/KG/HR Multivitamins 10 ml/ Thiamine 1,015 mls @ 125 mls/hr 12/20/23 22:53 12/21/23 08:12 HCl 100 mg/ Magnesium Sulfate IV 01/19/24 22:52 125 mls/hr 2 gm/ Lactated Ringer's DAILY RONALDO Administration Ibuprofen 600 mg 12/20/23 23:53 12/21/23 16:08 Ibuprofen 600 Mg Tablet PO 01/19/24 23:52 600 mg Q6HP PRN Administration Fever or Mild Pain (1-3) Insulin Human Lispro 0 unit 12/21/23 06:00 12/21/23 16:05 Humalog 100 Units/Ml 10ml Vial (Ssi) SQ 01/20/24 05:59 Not Given ACHS [facility] Protocol Ketorolac Tromethamine 15 mg 12/20/23 21:14 12/20/23 21:39 Ketorolac 30mg/Ml Vial IV 12/20/23 21:15 15 mg ONCE ONE Administration Ondansetron HCl 4 mg 12/20/23 22:56 12/20/23 23:58 Ondansetron 4mg/2ml Vial IV 01/19/24 22:55 4 mg Q6HP PRN Administration Nausea Oxazepam 30 mg 12/20/23 22:56 Oxazepam 15 Mg Capsule PO 01/19/24 22:55 Q6HP PRN CIWA Score 8-15 Oxazepam 15 mg 12/20/23 22:56 Oxazepam 15 Mg Capsule PO 01/19/24 22:55 Q6HP PRN CIWA 2-7 Potassium Chloride 40 meq 12/21/23 08:39 12/21/23 09:10 Potassium Chloride 20meq Tab PO 12/21/23 08:40 40 meq ONCE ONE Administration Sodium Chloride 10 ml 12/21/23 07:59 Sodium Chloride 0.9% 10ml Flush Syringe IV 01/20/24 07:58 NEEDED PRN Maintain IV Site ORDERS Category Date Time Status CT head/brain wo con Stat Cat Scan 12/20/23 19:35 Completed Ankle XR - Left minimum 3 Views [XR ankle LT min 3V] Exams 12/20/23 19:57 Completed Stat XR chest portable Stat Exams 12/20/23 19:36 Completed XR foot LT min 3V Stat Exams 12/20/23 19:57 Completed Acetone, Serum (Rapid) Stat Lab 12/20/23 19:50 Completed Complete Blood Count Auto Diff Stat Lab 12/20/23 19:50 Completed Comprehensive Metabolic Panel Stat Lab 12/20/23 19:50 Completed Ethanol [Ethyl Alcohol] Stat Lab 12/20/23 19:50 Completed Hemoglobin A1C Stat Lab 12/20/23 19:50 Completed Lactic Acid Stat Lab 12/20/23 19:50 Completed Lipase Stat Lab 12/20/23 19:50 Completed T4 (Thyroxine) Stat Lab 12/20/23 19:50 Completed TSH [Thyroid Stimulating Hormone] Stat Lab 12/20/23 19:50 Completed Troponin I Q3H Lab 12/20/23 23:40 Completed Troponin I Q3H Lab 12/21/23 01:20 Completed Troponin I Stat Lab 12/20/23 19:50 Completed UA [Urinalysis and Microscopic] Stat Lab 12/21/23 07:04 Completed Blood Culture Stat Micro 12/20/23 23:40 Received Venous Blood Gas Stat RT 12/20/23 20:00 Completed Medical Decision Narrative: In summary patient is a [age, sex] who presents to the emergency department for evaluation of [complaint]. Patient is [hemodynamically stable/unstable] upon arrival, [febrile/afebrile]. [Unremarkable physical exam, nonfocal exam versus focal remarkable exam]. Differential diagnosis includes [DDx]. Initial workup will be conducted with [hematologic labs, imaging, respiratory swab, describe workup]. Initial interventions include [crystalloid bolus, medications, p.o. challenge, etc.] initial workup reviewed by me [hematologic labs are remarkable for... Imaging remarkable for... Urinalysis remarkable for]. Upon repeat evaluation [patient had acceptable resolution of symptoms, had persistent pain for which additional interventions were conducted (describe interventions), tolerated p.o., was ambulatory, etc.]. Given this [patient is appropriate for discharge at this time and will be discharged with a prescription for... The case was discussed with hospital medicine regarding management and they will admit the patient their service for continued evaluation at this time... Etc.] Places where you can increase complexity: I informally interpreted the patient's chest x-ray or CT read and is remarkable for... Documenting what the monitor worker shows with rate and rhythm Consideration of test but deferring. Ex: I considered chest x-ray on this patient however given that they have no oxygen requirement and are clear to auscultation all lung chang will be deferred. Social determinants of health: Given that patient is undomiciled increases complexity. Given that patient has polysubstance abuse compounds all aspects of care <Jessee Manzo MD - Last Filed: 12/21/23 18:16> Medical Records Medical records reviewed: Yes I reviewed the patient's medical records. Akhil Inquiry Pt receiving controlled substance: No Akihl was queried for this patient: No Vital Signs: 12/20/23 19:37 12/20/23 20:30 12/20/23 21:00 Temperature 98.9 F Temperature Source Oral Pulse Rate 88 Pulse Rate [Right Brachial] 121 H Respiratory Rate 18 14 18 Blood Pressure 133/82 177/92 H Blood Pressure [Right Arm] 131/83 Blood Pressure Mean [Right Arm] 99 Blood Pressure Source Blood Pressure Source [Right Arm] Automatic Cuff Blood Pressure Position Blood Pressure Position [Right Arm] Supine 02 Sat by Pulse Oximetry 100 94 L Oxygen Delivery Method Room Air 12/20/23 22:37 Temperature 98.1 F Temperature Source Oral Pulse Rate 72 Pulse Rate [Right Brachial] Respiratory Rate 16 Blood Pressure 136/78 Blood Pressure [Right Arm] Blood Pressure Mean [Right Arm] Blood Pressure Source Automatic Cuff Blood Pressure Source [Right Arm] Blood Pressure Position Supine Blood Pressure Position [Right Arm] 02 Sat by Pulse Oximetry Oxygen Delivery Method Room Air Lab Data Lab Results 12/20/23 19:50: WBC 14.0 H, RBC 5.37, Hgb 16.9, Hct 48.3, MCV 89.9, MCH 31.4 H, MCHC 34.9, RDW 13.6, Plt Count 424, MPV 8.5, Neut % (Auto) 54.6, Lymph % (Auto) 34.8, [place] % (Auto) 6.8, Eos % (Auto) 2.2, Baso % (Auto) 1.6, Neut # (Auto) 7.6, Lymph # (Auto) 4.9 H, [place] # (Auto) 1.0, Eos # (Auto) 0.3, Baso # (Auto) 0.2, Sodium 137, Potassium 3.2 L, Chloride 97 L, Carbon Dioxide 18 L, Anion Gap 25.2 H, BUN 13, Creatinine 0.70, Estimated Creat Clear 174, Estimated GFR 120, Est GFR ( Amer) 146, Glucose 200 H, Hemoglobin A1c 8.3 H, Lactate 4.6 H, Calcium 9.7, Total Bilirubin 0.7, AST 64 H, ALT 129 H, Alkaline Phosphatase 122, Troponin I < 0.01, Total Protein 9.6 H, Albumin 4.7, Globulin 4.9 H, A lbumin/Globulin Ratio 1.0 L, Lipase 101, TSH 3.42, Thyroxine (T4) 10.7, P lasma/Serum Alcohol 263 H, Acetone Level None detected, HIV 1&2 Antibody Rapid Nonreactive 12/20/23 20:00: VBG pH 7.37, VBG pCO2 35.3, VBG pO2 124.6 H, VBG HCO3 20.0 L, V BG Total CO2 21.1 L, VBG O2 Saturation 98.6 H, VBG Base Excess -5.2 L, VBG Lactic Acid 5.2 H Orders (Tests/Meds): ED MEDICATIONS Discontinued Medications Generic Name Dose Route Start Last Admin Trade Name Kalpesh PRN Reason Stop Dose Admin Acetaminophen 1,000 mg 12/20/23 23:53 12/21/23 11:00 Acetaminophen 500mg Tab PO 01/19/24 23:52 1,000 mg Q6HP PRN Administration Mild to Moderate Pain (1-6) Diazepam 10 mg 12/20/23 22:56 Diazepam 10mg/2ml Syringe IV 01/19/24 22:55 Q1HP PRN CIWA >16 Folic Acid 1 mg 12/21/23 09:00 12/21/23 08:18 Folic Acid 1mg Tablet PO 01/20/24 08:59 1 mg DAILY RONALDO Administration Lactated Ringer's 1,000 mls @ 999 mls/hr 12/20/23 20:03 12/20/23 20:14 Lactated Ringer's 1000 Ml Bag IV 12/20/23 21:03 999 mls/hr .Q1H1M ONE Administration Sodium Chloride 1,000 mls @ 150 mls/hr 12/20/23 22:30 12/20/23 23:30 Sod Chlor 0.9% 1000ml Bag IV 01/19/24 22:29 Not Given .Q6H40M RONALDO Sodium Chloride 2,000 mls @ 999 mls/hr 12/20/23 20:30 12/20/23 23:35 Sod Chlor 0.9% 1000ml Bag IV 01/19/24 20:29 Not Given .Q2H1M RONALDO Potassium Chloride/Sodium Chloride 1,000 mls @ 75 mls/hr 12/20/23 20:30 12/20/23 23:30 Kcl 40 Meq-Ns 1,000ml Iv Soln IV 01/19/24 20:29 Not Given .[id number] RONALDO Insulin Human Regular 100 unit 101 mls @ 9.621 mls/hr 12/20/23 20:26 12/20/23 22:22 / Sodium Chloride IV 01/19/24 20:25 0.09 units/kg/hr .[id number] RONALDO 8.62 mls/hr Titration Protocol 0.1 UNITS/KG/HR Potassium Chloride/Sodium Chloride 1,000 mls @ 75 mls/hr 12/20/23 21:15 12/20/23 21:31 Kcl 20 Meq In Ns 1,000 Ml Iv Soln IV 01/19/24 21:14 75 mls/hr .[id number] RONALDO Administration Sodium Chloride 1,000 mls @ 150 mls/hr 12/20/23 22:48 12/20/23 23:30 Sod Chlor 0.9% 1000ml Bag IV 01/19/24 22:29 Not Given .Q6H40M RONALDO Sodium Chloride 2,000 mls @ 999 mls/hr 12/20/23 22:48 12/20/23 23:29 Sod Chlor 0.9% 1000ml Bag IV 01/19/24 20:29 Not Given .Q2H1M RONALDO Potassium Chloride/Sodium Chloride 1,000 mls @ 75 mls/hr 12/20/23 22:48 12/20/23 23:30 Kcl 20 Meq In Ns 1,000 Ml Iv Soln IV 01/19/24 21:14 Not Given .[id number] RONALDO Insulin Human Regular 100 unit 101 mls @ 9.621 mls/hr 12/20/23 22:48 12/20/23 23:31 / Sodium Chloride IV 01/19/24 20:25 Not Given .[id number] [facility] Protocol 0.1 UNITS/KG/HR Multivitamins 10 ml/ Thiamine 1,015 mls @ 125 mls/hr 12/20/23 22:53 12/21/23 08:12 HCl 100 mg/ Magnesium Sulfate IV 01/19/24 22:52 125 mls/hr 2 gm/ Lactated Ringer's DAILY RONALDO Administration Ibuprofen 600 mg 12/20/23 23:53 12/21/23 16:08 Ibuprofen 600 Mg Tablet PO 01/19/24 23:52 600 mg Q6HP PRN Administration Fever or Mild Pain (1-3) Insulin Human Lispro 0 unit 12/21/23 06:00 12/21/23 16:05 Humalog 100 Units/Ml 10ml Vial (Ssi) SQ 01/20/24 05:59 Not Given ACHS [facility] Protocol Ketorolac Tromethamine 15 mg 12/20/23 21:14 12/20/23 21:39 Ketorolac 30mg/Ml Vial IV 12/20/23 21:15 15 mg ONCE ONE Administration Ondansetron HCl 4 mg 12/20/23 22:56 12/20/23 23:58 Ondansetron 4mg/2ml Vial IV 01/19/24 22:55 4 mg Q6HP PRN Administration Nausea Oxazepam 30 mg 12/20/23 22:56 Oxazepam 15 Mg Capsule PO 01/19/24 22:55 Q6HP PRN CIWA Score 8-15 Oxazepam 15 mg 12/20/23 22:56 Oxazepam 15 Mg Capsule PO 01/19/24 22:55 Q6HP PRN CIWA 2-7 Potassium Chloride 40 meq 12/21/23 08:39 12/21/23 09:10 Potassium Chloride 20meq Tab PO 12/21/23 08:40 40 meq ONCE ONE Administration Sodium Chloride 10 ml 12/21/23 07:59 Sodium Chloride 0.9% 10ml Flush Syringe IV 01/20/24 07:58 NEEDED PRN Maintain IV Site ORDERS Category Date Time Status CT head/brain wo con Stat Cat Scan 12/20/23 19:35 Completed Ankle XR - Left minimum 3 Views [XR ankle LT min 3V] Exams 12/20/23 19:57 Completed Stat XR chest portable Stat Exams 12/20/23 19:36 Completed XR foot LT min 3V Stat Exams 12/20/23 19:57 Completed Acetone, Serum (Rapid) Stat Lab 12/20/23 19:50 Completed Complete Blood Count Auto Diff Stat Lab 12/20/23 19:50 Completed Comprehensive Metabolic Panel Stat Lab 12/20/23 19:50 Completed Ethanol [Ethyl Alcohol] Stat Lab 12/20/23 19:50 Completed Hemoglobin A1C Stat Lab 12/20/23 19:50 Completed Lactic Acid Stat Lab 12/20/23 19:50 Completed Lipase Stat Lab 12/20/23 19:50 Completed T4 (Thyroxine) Stat Lab 12/20/23 19:50 Completed TSH [Thyroid Stimulating Hormone] Stat Lab 12/20/23 19:50 Completed Troponin I Q3H Lab 12/20/23 23:40 Completed Troponin I Q3H Lab 12/21/23 01:20 Completed Troponin I Stat Lab 12/20/23 19:50 Completed UA [Urinalysis and Microscopic] Stat Lab 12/21/23 07:04 Completed Blood Culture Stat Micro 12/20/23 23:40 Received Venous Blood Gas Stat RT 12/20/23 20:00 Completed Medical Decision Narrative: 48-year-old male history of chronic alcohol abuse, diabetes, hypertension, hyperlipidemia, CAD status post stenting on aspirin and Plavix presenting with left ankle injury. He was drinking today, cut a tree limb, it fell, threw him into the air, he landed on his left foot and ankle and has had pain in that since. He states that it is severe, does not radiate, lateral aspect of his left ankle. No loss of consciousness, does not think he hit his head. Patient was brought into the emergency department for left ankle pain. On my evaluation, patient nearly somnolent. Patient's states that patient's glucose was greater than 300 before they left the house and he currently has a pop tart in his mouth. Patient responsive to minimal stimulation, but aggressive, combative, unpleasant. Smells of alcohol. He is diaphoretic, erythematous and red. Patient's pupils are 2 mm and reactive bilaterally. Pulmonary exam normal bilaterally, patient's cardiac exam significant for tachycardia, no lower extremity edema. He does have tenderness about his left lateral malleolus with associated bruising. Pulses are intact, sensation decreased in bilateral feet, likely secondary to diabetic neuropathy. History was obtained via conversation with patient and . Patient placed on continuous cardiac monitoring and continuous pulse ox with initial blood pressure 131/83, heart rate 21, saturation 100% on room air. Independent interpretation of EKG shows sinus tachycardia [address] or T wave changes concerning for acute ischemia. IL 173, QRS 121, QTc 418. Patient was given fluid bolus for symptomatic management and correction of underlying abnormalities. Workup independently interpreted and significant for nonactionable CBC. Chemistry concerning for hyponatremia. VBG with normal pH, bicarb low at 20, lactate 5.2. Normal anion gap. Troponin negative, nonactionable labs otherwise. On independent interpretation of imaging, no acute bony abnormality of the left foot or ankle. Chest x-ray without acute cardiopulmonary space disease. See radiology read for full review of final results. Heart score 3. Because patient high risk for clinical decompensation, deemed appropriate for inpatient admission. Results were relayed to patient who voiced understanding and patient was agreeable to inpatient admission and management. Patient was admitted to the hospital for further definitive management. Metal Cut Off Saw Operator disclaimer Much of this encounter note is an electronic pest control service representative spoken language to printed text. Electronic pest control service representative of the spoken language may permit errors. Although I have reviewed the note, some errors may still exist. Critical Care <Jessee Manzo MD - Last Filed: 12/21/23 18:16> Critical Care Time Critical Care Time: Yes (cardiovascular) Attestation: On 12/20/23, the high probability of a clinically significant, sudden or life threatening deterioration of the following system(s) required my full and direct attention, intervention and personal management. The time I documented below is in addition to time spent performing reported procedures but includes the following listed in this critical care notation. Total Time Total Critical Care Time: 35
--- NOTE | 2023-12-20 19:36 | XR_ITS ---
PROCEDURE INFORMATION: Exam: XR Chest Exam date and time: 12/20/2023 8:34 PM Age: 48 years old Clinical indication: Pain; Chest pressure; Additional info: AMS TECHNIQUE: Imaging protocol: Radiologic exam of the chest. Views: 1 view. COMPARISON: CR XR CHEST PORTABLE 11/25/2022 7:37 PM FINDINGS: Lungs: Unremarkable. No consolidation. Pleural spaces: Unremarkable. No pleural effusion. No pneumothorax. Heart/Mediastinum: Unremarkable. No cardiomegaly. Bones/joints: Unremarkable. IMPRESSION: No acute findings.
[2023-12-20 19:37] VITALS: BP 131/83; PULSE 121; RESP 18; TEMP 37.2; O2SAT 100; BMI 33.9
--- NOTE | 2023-12-20 19:40 | ECG_ITS ---
APPROVED REPORT Exam: Resting ECG HR:107 bpm ECG Measurements Heart Rate 107 AXES PA 173 P 60 QRSd 121 QRS 32 QT 355 T 53 QTc 418 Conclusion SINUS TACHYCARDIA INFERIOR MYOCARDIAL INFARCTION , OF INDETERMINATE AGE [40+ ms Q WAVE AND/OR ST/T ABNORMALITY IN II/aVF] ABNORMAL ECG Electronically signed by : ALLA RUIZ, 12/21/2023 07:28:44
--- NOTE | 2023-12-20 19:57 | XR_ITS ---
PROCEDURE INFORMATION: Exam: XR Left Foot Exam date and time: 12/20/2023 8:34 PM Age: 48 years old Clinical indication: Pain; Foot; Left; Additional info: Lateral ankle and foot pain TECHNIQUE: Imaging protocol: Radiologic exam of the left foot. Views: 3 or more views. COMPARISON: CR XR ANKLE LT MIN 3V 12/20/2023 8:34 PM FINDINGS: Bones/joints: Normal. Soft tissues: Normal. IMPRESSION: No acute findings.
--- NOTE | 2023-12-20 19:57 | XR_ITS ---
PROCEDURE INFORMATION: Exam: XR Left Ankle Exam date and time: 12/20/2023 8:34 PM Age: 48 years old Clinical indication: Pain; Ankle; Left; Additional info: Left lateral foot and ankle pain TECHNIQUE: Imaging protocol: Radiologic exam of the left ankle. Views: 3 or more views. COMPARISON: CR XR ANKLE LT MIN 3V 12/20/2023 8:34 PM FINDINGS: Bones/joints: Normal. Soft tissues: Normal. IMPRESSION: No acute findings.
[2023-12-20 19:59] LABS: Basophils # 0.2 K/mm3 (0-0.2); Basophils % 1.6 % (0.1-2.0); Eosinophils # 0.3 K/mm3 (0.0-0.4); Eosinophils % 2.2 % (0.1-12.0); Hematocrit 48.3 % (42.0-52.0); Hemoglobin 16.9 g/dL (14.1-18.0); Lymphocytes # 4.9 K/mm3 (0.7-4.5); Lymphocytes % 34.8 % (10-50); Mean Corpuscular HGB Conc 34.9 g/dL (31.8-35.4); Mean Corpuscular Hemoglobin 31.4 pg (27.0-31.2); Mean Corpuscular Volume 89.9 fl (80-94); Mean Platelet Volume 8.5 fl (7.4-10.4); Monocytes % 6.8 % (1.7-9.3); Neutrophils # 7.6 K/mm3 (1.8-7.8); Neutrophils % 54.6 % (37.0-80.0); Platelet Count 424 K/mm3 (142-424); Red Blood Count 5.37 M/mm3 (4.60-6.20); Red Cell Distribution Width 13.6 % (11.5-17.5)
[2023-12-20 20:05] LABS: Albumin Level 4.7 g/dl (3.5-5.0); Chloride 97 mmol/L (98-107); Potassium 3.2 mmoL/L (3.5-5.1); Sodium 137 mmol/L (136-145)
[2023-12-20 20:07] LABS: Alanine Aminotransferase 129 U/L (12-78); Aspartate Amino Transferase 64 U/L (17-59); Blood Urea Nitrogen 13 mg/dl (9-20); Carbon Dioxide 18 mmol/L (22.0-30.0); Creatinine Clearance Estimated 174 mL/min (50-200); Estimated Glomerular Filt Rate 120 ml/min (>60); GFR (African American) 146 ML/MIN (>60); Globulin 4.9 g/dL (1.3-3.2); Total Protein,Serum 9.6 g/dl (6.3-8.2)
[2023-12-20 20:07] LABS: VBG Base Excess -5.2 mmol/L (-2.4-2.3); VBG Oxygen Saturation 98.6 % (50-70); VBG PCO2 35.3 mmol/L (35-51); VBG PH 7.37 mmol/L (7.31-7.41); VBG PO2 124.6 mmol/L (28-40); VBG Total CO2 21.1 mmol/L (23-27)
[2023-12-20 20:08] LABS: Alkaline Phosphatase 122 U/L (38-126); Anion Gap 25.2 mEq/L (5-15); Bilirubin,Total 0.7 mg/dl (0.2-1.3); Calcium 9.7 mg/dl (8.4-10.2); Glucose 200 mg/dl (74-100); Lipase 101 U/L (23-300)
[2023-12-20 20:11] LABS: Lactate Venous 5.2 mmol/L (0.4-2.0)
[2023-12-20] MEDS: LACTATED RINGERS 1000ML 1,000 ML 999 ML IV (20:14)
[2023-12-20 20:23] LABS: Troponin I < 0.01 ng/ml (0.00-0.034)
[2023-12-20 20:24] LABS: T4 (Thyroxine) 10.7 ug/dl (5.53-11.0)
[2023-12-20 20:30] VITALS: BP 133/82; RESP 14
[2023-12-20 20:38] LABS: Ethyl Alcohol 263 mg/dl (0-10); Thyroid Stimulating Hormone 3.42 uIU/mL (0.465-4.68)
[2023-12-20] MEDS: 0.9 % SODIUM CHLORIDE 1000ML 2,000 ML 999 ML IV (20:38)
[2023-12-20 20:44] LABS: Lactic Acid 4.6 mmol/L (0.7-2.1)
--- NOTE | 2023-12-20 20:45 | PC.NURSE ---
Lactic 4.6. notified
[2023-12-20] MEDS: INSULIN REGULAR, HUMAN 100 UNIT in 0.9 % SODIUM CHLORIDE 100 ML 9.62 UNIT IV (20:46)
[2023-12-20 21:00] VITALS: BP 177/92; PULSE 88; RESP 18; O2SAT 94
--- NOTE | 2023-12-20 21:00 | PC.NURSE ---
Dr. Hong paged for Dr. Chapman, Dr. Hong on phone with Dr. Gely morales this time
[2023-12-20 21:01] LABS: Acetone, Serum (Rapid) None Detected (None Detect)
[2023-12-20] MEDS: 0.9% NaCl w/20mEq KCL 1,000 ML 75 ML IV (21:31)
[2023-12-20] MEDS: KETOROLAC 30MG/ML VIAL 15 MG IV (21:39)
--- NOTE | 2023-12-20 22:26 | PC.NURSE ---
transfer to floor delayed waiting on ICU nursing staff
--- NOTE | 2023-12-20 22:36 | PC.NURSE ---
pt arrived to floor at this time
[2023-12-20 22:37] VITALS: BP 136/78; PULSE 72; RESP 16; TEMP 36.7; O2SAT 98
--- NOTE | 2023-12-20 23:06 | PC.NURSE ---
Received call from Dr. Hong when patient arrived to ICU room. He instructed RN to transfer from ICU to [facility], stop the DKA protocol, start Alcohol Withdrawal protocol, ACHS with SS insulin, AM labs, Rally packs daily and to start now.
[2023-12-20] MEDS: MVI, ADULT NO.1 WITH VIT K 10 ML, THIAMINE HCL 100 MG, MAGNESIUM SULFATE 2 GM in LACTAT... 125 ML IV (23:50)
[2023-12-20] MEDS: ACETAMINOPHEN 500MG TAB 1000 MG PO (23:57)
[2023-12-20] MEDS: IBUPROFEN 600 MG TABLET PO (23:57)
[2023-12-20] MEDS: ONDANSETRON 4MG/2ML VIAL 4 MG IV (23:58)
[2023-12-21] VITALS: BP 144/89; PULSE 84; RESP 20; TEMP 36.6; O2SAT 95
[2023-12-21 00:11] LABS: Reflex Lactic Add Lactic Reflex
[2023-12-21 00:32] LABS: Troponin I < 0.01 ng/ml (0.00-0.034)
[2023-12-21 00:59] LABS: Lactic Acid Follow Up (RFLX 1) 2.4 mmol/L (0.7-2.1)
[2023-12-21 02:03] LABS: Troponin I < 0.01 ng/ml (0.00-0.034)
[2023-12-21 02:40] LABS: Reflex Lactic (2 hrs) Add Lactic Reflex
[2023-12-21 03:26] LABS: Lactic Acid Follow up (RFLX 2) 2.2 mmol/L (0.7-2.1)
[2023-12-21 04:00] VITALS: BP 124/72; PULSE 77; RESP 16; TEMP 36.3; O2SAT 97; BMI 34.0
[2023-12-21 04:49] LABS: Hemoglobin A1C 8.3 % (4.0-6.0)
[2023-12-21 06:25] LABS: POC Glucose,Bedside 78 (70-110)
[2023-12-21 06:48] LABS: Albumin Level 3.9 g/dl (3.5-5.0); Chloride 100 mmol/L (98-107); Potassium 3.2 mmoL/L (3.5-5.1); Sodium 136 mmol/L (136-145)
[2023-12-21 06:51] LABS: Alanine Aminotransferase 89 U/L (12-78); Albumin/Globulin Ratio 1.2 (1.1-1.8); Alkaline Phosphatase 96 U/L (38-126); Anion Gap 15.2 mEq/L (5-15); Aspartate Amino Transferase 45 U/L (17-59); Bilirubin,Total 0.5 mg/dl (0.2-1.3); Blood Urea Nitrogen 12 mg/dl (9-20); Calcium 8.6 mg/dl (8.4-10.2); Carbon Dioxide 24 mmol/L (22.0-30.0); Creatinine Clearance Estimated 244 mL/min (50-200); Estimated Glomerular Filt Rate 177 ml/min (>60); GFR (African American) 215 ML/MIN (>60); Globulin 3.2 g/dL (1.3-3.2); Glucose 76 mg/dl (74-100); Total Protein,Serum 7.1 g/dl (6.3-8.2)
[2023-12-21 07:09] LABS: Magnesium 1.9 mg/dl (1.6-2.3)
[2023-12-21 07:12] LABS: Basophils # 0.1 K/mm3 (0-0.2); Basophils % 0.7 % (0.1-2.0); Eosinophils # 0.1 K/mm3 (0.0-0.4); Eosinophils % 1.3 % (0.1-12.0); Hematocrit 41.1 % (42.0-52.0); Lymphocytes # 2.6 K/mm3 (0.7-4.5); Lymphocytes % 27.4 % (10-50); Mean Corpuscular HGB Conc 33.3 g/dL (31.8-35.4); Mean Corpuscular Hemoglobin 30.8 pg (27.0-31.2); Mean Corpuscular Volume 92.6 fl (80-94); Mean Platelet Volume 8.9 fl (7.4-10.4); Monocytes # 0.8 K/mm3 (0.1-1.0); Neutrophils % 62.5 % (37.0-80.0); Platelet Count 281 K/mm3 (142-424); Red Blood Count 4.44 M/mm3 (4.60-6.20); Red Cell Distribution Width 13.7 % (11.5-17.5); White Blood Count 9.5 K/mm3 (4.8-10.8)
[2023-12-21 07:14] LABS: Hemoglobin 13.7 g/dL (14.1-18.0)
[2023-12-21 07:16] LABS: Microscopic, Urine URINE MICROSCOPIC (MICROSCOPIC)
[2023-12-21 07:48] LABS: Appearance,Urine CLEAR (Clear); Bilirubin,Urine Negative (Negative); Blood, Urine Negative (Negative); Color,Urine YELLOW (Yellow); Glucose,Urine (UA) Negative (Negative); Ketones,Urine Negative (Negative); Leukocyte Esterase,Urine Negative (Negative); Nitrate,Urine Negative (Negative); Protein,Urine Negative (Negative); Specific Gravity, Urine 1.025 (1.005-1.030); Urobilinogen,Urine 0.2 EU/dl (0.2)
[2023-12-21 08:00] VITALS: BP 144/88; PULSE 82; RESP 18; TEMP 36.8; O2SAT 95; O2SAT 97
[2023-12-21 08:03] LABS: Bacteria,Urine Trace /lpf; Squamous Epithelial Cell,Urine Occasional #/hpf (0-5)
[2023-12-21 08:04] LABS: POC Glucose,Bedside 80 (70-110)
--- NOTE | 2023-12-21 08:04 | HMH.PHAINT1 ---
Pharmacy Intervention Comments: Home medication list verified using list from pharmacy and patient interview.
--- NOTE | 2023-12-21 08:08 | CT_ITS ---
FINAL REPORT TECHNIQUE: Thin section axial CT images with coronal and sagittal reformats were performed of the left ankle. This study was performed with techniques to keep radiation doses as low as reasonably achievable (ALARA). Individualized dose reduction techniques using automated exposure control or adjustment of mA and/or kV according to the patient''s size were employed. CLINICAL HISTORY: injury to foot/ankle with fall COMPARISON: None FINDINGS: There are no fractures. The bones are well-mineralized. The joint spaces are preserved. There are no masses or fluid collections. There are no soft tissue abnormalities. IMPRESSION: No acute process. Reviewed, Interpreted and Dictated by Cornelius Adams MD Transcribed by Gris Devlin Authenticated and [facility]
--- NOTE | 2023-12-21 08:08 | CT_ITS ---
FINAL REPORT TECHNIQUE: Thin section axial CT images with coronal and sagittal reformats were performed of the left foot. This study was performed with techniques to keep radiation doses as low as reasonably achievable (ALARA). Individualized dose reduction techniques using automated exposure control or adjustment of mA and/or kV according to the patient''s size were employed. CLINICAL HISTORY: injury to foot/ankle with fall COMPARISON: None FINDINGS: There are no fractures. The bones are well-mineralized. The joint spaces are preserved. There are no masses or fluid collections. There are no soft tissue abnormalities. IMPRESSION: No acute findings. Reviewed, Interpreted and Dictated by Cornelius Adams MD Transcribed by Gris Devlin Authenticated and [facility]
[2023-12-21] MEDS: MVI, ADULT NO.1 WITH VIT K 10 ML, THIAMINE HCL 100 MG, MAGNESIUM SULFATE 2 GM in LACTAT... 125 ML IV (08:12)
--- NOTE | 2023-12-21 08:12 | P.HP_ITS ---
History of Present Illness *Admission Date: 12/21/23 *Reason for visit:: Left foot/ankle injury *History of present illness: Mr. Keshav Edwards is a 47-year-old male patient of [facility] with a history of GERD, hyperlipidemia, hypertension, type 2 diabetes mellitus, psoriasis, and coronary artery disease who presented to [facility] emergency room room for evaluation of his left foot/ankle after a fall when trimming trees yesterday. With evaluation in the emergency room he noted severe pain in the lateral aspect of the left ankle. He denied loss of consciousness. He did not feel that he hit his head. He was noted to be somnolent. At home glucose was greater than 300 before they left the house. Patient was noted to be responsive to minimal stimulation but was aggressive and combative and unpleasant. He smelled of alcohol. He was diaphoretic and erythematous and red. He was noted to be tachycardic. Left ankle was tender to palpation. Bruising was also noted. Vital signs were stable. He was given a fluid bolus for symptomatic management and correction of underlying abnormalities. X-rays of the ankle and foot were found to be negative. He also had a CT of the head which was negative. Chest x-ray was negative. He was admitted for further evaluation and treatment due to elevated blood sugars with ankle injury. This morning with exam patient states his ankle still hurts. It is very sensitive to light touch. He denies any chest pain and shortness of breath. He has voided since admission. White blood cell count has returned to normal at this a.m. and potassium is 3.2 a.m. Patient does admit to having pizza last night along with about 4 beers and whiskey. He states he does not drink daily. [facility] Disclaimer: The information contained in this section may have been updated after the patient was seen, as this information can be updated by other users. Medical History (Updated 12/21/23 @ 08:40 by Vania Mohamud APRN) Back pain Diabetes mellitus Hypertensive heart disease Hyperlipidemia Coronary arteriosclerosis Social History (Updated 12/21/23 @ 08:23 by Vania Mohamud APRN) Smoking Status: Never smoker alcohol intake: current alcohol intake frequency: a few times a month substance use type: denies use current occupational status: disabled Travel in the last 8 weeks: Inside the [place] household members: spouse housing: house caffeine: Yes physical activity: other details: active Review of Systems Constitutional Constitutional: Reports fatigue, Denies frequent falls, Reports headache(s) and Reports lethargy Eyes Eyes: Denies change in vision ENT Ears, Nose, Mouth, and Throat: Reports dizziness, Denies otalgia, Reports headache(s), Reports nasal congestion, Reports post nasal drip, Denies sore throat and Reports vertigo *Cardiovascular Cardiovascular: Reports chest pain (His chest pain during 3 times a month requiring nitroglycerin.), Reports chest pain with activity, Reports dyspnea, Reports leg edema (Periodic) and Denies syncope *Respiratory Respiratory: Denies cough, Reports dyspnea and Denies hemoptysis *Gastrointestinal Gastrointestinal: Reports constipation, Denies hematemesis, Reports loose stools, Reports nausea and Reports vomiting (Last night in the emergency room) *Genitourinary Genitourinary: Denies difficulty urinating *Musculoskeletal Musculoskeletal: Denies arthralgias (Has back issues and has had 3 surgeries) and Reports back pain *Neurologic Neurologic: Denies abnormal speech, Denies behavioral changes, Denies confusion, Reports dizziness, Denies frequent falls, Reports headache(s), Denies syncope and Reports vertigo Psychiatric Psychiatric: Denies behavioral changes and Denies confusion Endocrine Endocrine: Reports fatigue and Reports flushing Meds Home Medications and Allergies Home Medications ?Medication ?Instructions ?Recorded ?Confirmed ?Type aspirin 81 mg tablet 81 mg PO DAILY 12/21/23 12/21/23 History carvedilol 12.5 mg tablet 12.5 mg PO BID 12/21/23 12/21/23 History clopidogrel 75 mg tablet 75 mg PO DAILY 12/21/23 12/21/23 History insulin human U-100 NPH-regulr 40 - 50 unit SQ AM 12/21/23 12/21/23 History 70-30 mix 100 unit/mL subcutaneous susp (Novolin 70/30 U-100 Insulin) insulin human U-100 NPH-regulr 100 unit SQ PM 12/21/23 12/21/23 History 70-30 mix 100 unit/mL subcutaneous susp (Novolin 70/30 U-100 Insulin) lisinopril 20 mg tablet 20 mg PO DAILY 12/21/23 12/21/23 History metformin 500 mg tablet 1,000 mg PO BIDWMEAL 12/21/23 12/21/23 History pantoprazole 40 mg tablet,delayed 40 mg PO BID 12/21/23 12/21/23 History release sertraline 50 mg tablet 50 mg PO DAILY 12/21/23 12/21/23 History New Prescriptions to Start Prescriptions: Allergies Allergy/AdvReac Type Severity Reaction Status Date / Time No Known Allergies Allergy Verified 06/01/22 09:46 Exam Data for Last 24 hours Vital signs and Labs for Last 24 Hours: Temp Pulse Resp BP Pulse Ox O2 Del Method 97.4 F L 77 16 124/72 97 Room Air 12/21/23 04:00 12/21/23 04:00 12/21/23 04:00 12/21/23 04:00 12/21/23 04:00 12/21/23 04:00 Laboratory Results - last 24 hr 12/20/23 19:50: WBC 14.0 H, RBC 5.37, Hgb 16.9, Hct 48.3, MCV 89.9, MCH 31.4 H, MCHC 34.9, RDW 13.6, Plt Count 424, MPV 8.5, Neut % (Auto) 54.6, Lymph % (Auto) 34.8, [place] % (Auto) 6.8, Eos % (Auto) 2.2, Baso % (Auto) 1.6, Neut # (Auto) 7.6, Lymph # (Auto) 4.9 H, [place] # (Auto) 1.0, Eos # (Auto) 0.3, Baso # (Auto) 0.2, Sodium 137, Potassium 3.2 L, Chloride 97 L, Carbon Dioxide 18 L, Anion Gap 25.2 H, BUN 13, Creatinine 0.70, Estimated Creat Clear 174, Estimated GFR 120, Est GFR ( Amer) 146, Glucose 200 H, Hemoglobin A1c 8.3 H, Lactate 4.6 H, Calcium 9.7, Total Bilirubin 0.7, AST 64 H, ALT 129 H, Alkaline Phosphatase 122, Troponin I < 0.01, Total Protein 9.6 H, Albumin 4.7, Globulin 4.9 H, Albumin/Globulin Ratio 1.0 L, Lipase 101, TSH 3.42, Thyroxine (T4) 10.7, Plasma/Serum Alcohol 263 H, Acetone Level None detected 12/20/23 20:00: VBG pH 7.37, VBG pCO2 35.3, VBG pO2 124.6 H, VBG HCO3 20.0 L, VBG Total CO2 21.1 L, VBG O2 Saturation 98.6 H, VBG Base Excess -5.2 L, VBG Lactic Acid 5.2 H 12/20/23 22:52: POC Glucose 80 12/20/23 23:40: Troponin I < 0.01 12/21/23 00:30: Lactate 2.4 H 12/21/23 01:20: Troponin I < 0.01 12/21/23 02:55: Lactate 2.2 H 12/21/23 05:48: WBC 9.5 D, RBC 4.44 L, Hgb 13.7 L D, Hct 41.1 L, MCV 92.6, MCH 30.8, MCHC 33.3, RDW 13.7, Plt Count 281 D, MPV 8.9, Neut % (Auto) 62.5, Lymph % (Auto) 27.4, [place] % (Auto) 8.0, Eos % (Auto) 1.3, Baso % (Auto) 0.7, Neut # (Auto) 6.0, Lymph # (Auto) 2.6, [place] # (Auto) 0.8, Eos # (Auto) 0.1, Baso # (Auto) 0.1, Sodium 136, Potassium 3.2 L, Chloride 100, Carbon Dioxide 24, Anion Gap 15.2 H, BUN 12, Creatinine 0.50 L D, Estimated Creat Clear 244, Estimated GFR 177, Est GFR ( Amer) 215 D, Glucose 76 D, Calcium 8.6, Magnesium 1.9, Total Bilirubin 0.5, AST 45 D, ALT 89 H D, Alkaline Phosphatase 96, Total Protein 7.1 D, Albumin 3.9 D, Globulin 3.2, Albumin/Globulin Ratio 1.2 12/21/23 06:14: POC Glucose 78 12/21/23 07:04: Urine Color Yellow, Urine Appearance Clear, Urine pH 6.0, Ur Specific Hiram 1.025, Urine Protein Negative, Urine Glucose (UA) Negative, Urine Ketones Negative, Urine Blood Negative, Urine Nitrate Negative, Urine Bilirubin Negative, Urine Urobilinogen 0.2, Ur Leukocyte Esterase Negative, Urine RBC None, Urine WBC None, Ur Squamous Epith Cells Occasional, Urine Bacteria Trace I & O for Last 24 hours: Intake & Output 12/18/23 12/19/23 12/20/23 12/21/23 11:59 11:59 11:59 11:59 Intake Total 15.392 / 15.392 Output Total 850 / 850 Balance -834.608 / -834.608 Weight 210 lb 8.663 oz Constitutional Constitutional: no acute distress Comments: Sitting up in the bed and appears quite comfortable. is at bedside. *Routine HEENT Exam Head: Present normocephalic and atraumatic Eye: Present PERRL and scleral injection; Absent conjunctival icterus or conjunctivae pink ENT: Present mucous membranes moist and oropharynx clear *Routine Neck Exam Neck: Present supple and full ROM; Absent carotid bruit, lymphadenopathy or thy romegaly *Routine Respiratory Exam Respiratory: Present CTA bilaterally (Anteriorly and posteriorly) *Routine Cardiovascular Exam Cardiovascular: Present RRR *Routine Abdominal Exam Abdominal: Present normoactive bowel sounds and obese; Absent tenderness, rebound or guarding *Routine Rectal Exam Rectal:: deferred *Routine Genitalia Exam Genitalia:: deferred *Routine Extremities Exam Extremities: Present edema (Left lower leg foot/ankle), pulses intact (Palpable pedal pulses), calf tenderness (Left lower leg) and joint swelling (Left ankle with ecchymosis) *Routine Skin Exam Comments: Flushed *Routine Neurological Exam Neurological: Present alert, oriented X3 and normal speech; Absent altered mental status Assessment and Plan *Assessment and plan (1) Orthostatic dizziness: Status: Acute Category: Medical Code(s): R42 - Dizziness and giddiness (2) Alcoholic intoxication: Status: Acute Qualifiers: Complication of substance-induced condition: uncomplicated Qualified Code(s): F10.920 - Alcohol use, unspecified with intoxication, uncomplicated Category: Medical Code(s): F10.929 - Alcohol use, unspecified with intoxication, unspecified (3) Chronic stable angina: Status: Chronic Category: Medical Code(s): I20.8 - Other forms of angina pectoris (4) Diabetes mellitus: Status: Chronic Qualifiers: Diabetes mellitus complication status: without complication Diabetes mellitus penitentiary insulin use: without termite control servicer use Diabetes mellitus type: type 2 Qualified Code(s): E11.9 - Type 2 diabetes mellitus without complications Category: Medical Code(s): E11.9 - Type 2 diabetes mellitus without complications (5) Hyperlipidemia: Status: Chronic Qualifiers: Hyperlipidemia type: mixed hyperlipidemia Qualified Code(s): E78.2 - Mixed hyperlipidemia Category: Medical Code(s): E78.5 - Hyperlipidemia, unspecified (6) Coronary arteriosclerosis: Status: Chronic Category: Medical Code(s): I25.10 - Atherosclerotic heart disease of [place] coronary artery without angina pectoris (7) Hypokalemia: Status: Acute Category: Medical Code(s): E87.6 - Hypokalemia Plan CT of the left foot and ankle. Ice to ankle. Will give p.o. potassium. Ambulate with walker. Reviewed with patient need for dietary control of his diabetes. And tobacco cessation.
[2023-12-21] MEDS: FOLIC ACID 1MG TABLET 1 MG PO (08:18)
[2023-12-21] MEDS: POTASSIUM CHLORIDE 20MEQ TAB 40 MEQ PO (09:10)
--- NOTE | 2023-12-21 09:48 | PC.NURSE ---
0930: To CT scan via for CT of left ankle.
[2023-12-21 10:07] LABS: HIV (1&2) Antibody Rapid NONREACTIVE (NONREACTIVE)
[2023-12-21] MEDS: IBUPROFEN 600 MG TABLET PO ×2 (10:07→16:08)
--- NOTE | 2023-12-21 10:10 | PC.NURSE ---
1010:returned to Room from CT scan
[2023-12-21] MEDS: ACETAMINOPHEN 500MG TAB 1000 MG PO (11:00)
[2023-12-21 11:29] LABS: POC Glucose,Bedside 137 (70-110)
--- NOTE | 2023-12-21 14:34 | CARE MANAGER ---
Patient is having difficulty with ambulation due to left foot injury. Unable to bear weight at this time.
--- NOTE | 2023-12-21 15:14 | PC.NURSE ---
1500: Spoke to Ivon and she is working on getting a walker for patient to go home with. Dr. Chapman called and stated that the patient would need a walking boot, Order was placed. walking boot placed on patient and patient and instructed on use of the boot. Both patient and verbalize understanding of the walking boot instructions.
[2023-12-21 15:57] LABS: POC Glucose,Bedside 166 (70-110)
[2023-12-21 16:06] LABS: Chloride 99 mmol/L (98-107); Potassium 3.9 mmoL/L (3.5-5.1); Sodium 132 mmol/L (136-145)
[2023-12-21 16:09] LABS: Anion Gap 9.9 mEq/L (5-15); Blood Urea Nitrogen 13 mg/dl (9-20); Carbon Dioxide 27 mmol/L (22.0-30.0); Creatinine Clearance Estimated 203 mL/min (50-200); Estimated Glomerular Filt Rate 144 ml/min (>60); GFR (African American) 174 ML/MIN (>60); Glucose 169 mg/dl (74-100)
[2023-12-21 16:10] LABS: Calcium 8.7 mg/dl (8.4-10.2)
[2023-12-22 06:28] LABS: HCV Ab Non Reactive (Non Reactive)
--- NOTE | 2023-12-22 14:51 | SW/DCPLANNER ---
Hospital follow up phone call: patient stated that he is in pain but doing well at home. Patient is aware of his follow up appointment w/ Dr Chapman next week.
--- NOTE | 2023-12-22 16:17 | P.DS_ITS ---
General Admission date:: 12/20/23 Discharge date: 12/21/23 HPI HPI HPI: Mr. Keshav Edwards is a 47-year-old male patient of [facility] with a history of GERD, hyperlipidemia, hypertension, type 2 diabetes mellitus, psoriasis, and coronary artery disease who presented to [facility] emergency room room for evaluation of his left foot/ankle after a fall when trimming trees yesterday. With evaluation in the emergency room he noted severe pain in the lateral aspect of the left ankle. He denied loss of consciousness. He did not feel that he hit his head. He was noted to be somnolent. At home glucose was greater than 300 before they left the house. Patient was noted to be responsive to minimal stimulation but was aggressive and combative and unpleasant. He smelled of alcohol. He was diaphoretic and erythematous and red. He was noted to be tachycardic. Left ankle was tender to palpation. Bruising was also noted. Vital signs were stable. He was given a fluid bolus for symptomatic management and correction of underlying abnormalities. X-rays of the ankle and foot were found to be negative. He also had a CT of the head which was negative. Chest x-ray was negative. He was admitted for further evaluation and treatment due to elevated blood sugars with ankle injury. This morning with exam patient states his ankle still hurts. It is very sensitive to light touch. He denies any chest pain and shortness of breath. He has voided since admission. White blood cell count has returned to normal at this a.m. and potassium is 3.2 a.m. Patient does admit to having pizza last night along with about 4 beers and whiskey. He states he does not drink daily. Hospital Course Hospital Course Hospital Course: A CT of the left foot and ankle was ordered and ice was applied. He was able to ambulate with a walker. He was given p.o. potassium. CT of the ankle and foot showed no acute fracture. The patient was stable to be discharged home and will follow-up in the office of [facility]. Exam Data for Last 24 hours Vital signs and Labs for Last 24 Hours: Temp Pulse Resp BP Pulse Ox O2 Del Method 98.2 F 82 18 144/88 H 97 Room Air 12/21/23 08:00 12/21/23 08:00 12/21/23 08:00 12/21/23 08:00 12/21/23 08:00 12/21/23 12:53 Laboratory Results - last 24 hr 12/20/23 19:50: Hepatitis C Antibody Non reactive, Hep C Ab Comment Comment I & O for Last 24 hours: Intake & Output 12/20/23 12/21/23 12/22/23 12/23/23 11:59 11:59 11:59 11:59 Intake Total 495.392 / 495.392 480 / 480 Output Total 850 / 850 0 / 0 Balance -354.608 / -354.608 480 / 480 Weight 210 lb 8.663 oz Microbiology Reports for the Last 24 Hours: Microbiology 12/20/23 23:40 Blood Blood Culture - Preliminary NO GROWTH AFTER 24 HOURS 12/20/23 19:50 Blood Blood Culture - Preliminary NO GROWTH AFTER 24 HOURS Narrative: Constitutional Constitutional: no acute distress Comments: Sitting up in the bed and appears quite comfortable. is at bedside. *Routine HEENT Exam Head: Present normocephalic and atraumatic Eye: Present PERRL and scleral injection; Absent conjunctival icterus or conjunctivae pink ENT: Present mucous membranes moist and oropharynx clear *Routine Neck Exam Neck: Present supple and full ROM; Absent carotid bruit, lymphadenopathy or thyromegaly *Routine Respiratory Exam Respiratory: Present CTA bilaterally (Anteriorly and posteriorly) *Routine Cardiovascular Exam Cardiovascular: Present RRR *Routine Abdominal Exam Abdominal: Present normoactive bowel sounds and obese; Absent tenderness, rebound or guarding *Routine Rectal Exam Rectal:: deferred *Routine Genitalia Exam Genitalia:: deferred *Routine Extremities Exam Extremities: Present edema (Left lower leg foot/ankle), pulses intact (Palpable pedal pulses), calf tenderness (Left lower leg) and joint swelling (Left ankle with ecchymosis) *Routine Skin Exam Comments: Flushed *Routine Neurological Exam Neurological: Present alert, oriented X3 and normal speech; Absent altered mental status Results Data Completed and Pending Labs on day of discharge: Labs from last 24 hours 12/20/23 19:50 Hepatitis C Antibody Non reactive Hep C Ab Comment Comment Preliminary micro results at discharge 12/20/23 23:40 Blood Culture - Preliminary Blood NO GROWTH AFTER 24 HOURS 12/20/23 19:50 Blood Culture - Preliminary Blood NO GROWTH AFTER 24 HOURS DS: Diagnosis Discharge Diagnosis (1) Orthostatic dizziness: Status: Acute Code(s): R42 - Dizziness and giddiness (2) Alcoholic intoxication: Status: Acute Code(s): F10.929 - Alcohol use, unspecified with intoxication, unspecified Qualifiers: Complication of substance-induced condition: uncomplicated Qualified Code(s): F10.920 - Alcohol use, unspecified with intoxication, uncomplicated (3) Chronic stable angina: Status: Chronic Code(s): I20.8 - Other forms of angina pectoris (4) Diabetes mellitus: Status: Chronic Code(s): E11.9 - Type 2 diabetes mellitus without complications Qualifiers: Diabetes mellitus type: type 2 Diabetes mellitus complication status: without complication Diabetes mellitus correction insulin use: without correction use Qualified Code(s): E11.9 - Type 2 diabetes mellitus without complications (5) Hyperlipidemia: Status: Chronic Code(s): E78.5 - Hyperlipidemia, unspecified Qualifiers: Hyperlipidemia type: mixed hyperlipidemia Qualified Code(s): E78.2 - Mixed hyperlipidemia (6) Coronary arteriosclerosis: Status: Chronic Code(s): I25.10 - Atherosclerotic heart disease of [place] coronary artery without angina pectoris (7) Hypokalemia: Status: Acute Code(s): E87.6 - Hypokalemia Meds Home Medications and Allergies Home Medications ?Medication ?Instructions ?Recorded ?Confirmed ?Type aspirin 81 mg tablet 81 mg PO DAILY 12/21/23 12/21/23 History carvedilol 12.5 mg tablet 12.5 mg PO BID 12/21/23 12/21/23 History clopidogrel 75 mg tablet 75 mg PO DAILY 12/21/23 12/21/23 History insulin human U-100 NPH-regulr 40 - 50 unit SQ AM 12/21/23 12/21/23 History 70-30 mix 100 unit/mL subcutaneous susp (Novolin 70/30 U-100 Insulin) insulin human U-100 NPH-regulr 100 unit SQ PM 12/21/23 12/21/23 History 70-30 mix 100 unit/mL subcutaneous susp (Novolin 70/30 U-100 Insulin) lisinopril 20 mg tablet 20 mg PO DAILY 12/21/23 12/21/23 History metformin 500 mg tablet 1,000 mg PO BIDWMEAL 12/21/23 12/21/23 History pantoprazole 40 mg tablet,delayed 40 mg PO BID 12/21/23 12/21/23 History release sertraline 50 mg tablet 50 mg PO DAILY 12/21/23 12/21/23 History New Prescriptions to Start Prescriptions: Allergies Allergy/AdvReac Type Severity Reaction Status Date / Time No Known Allergies Allergy Verified 06/01/22 09:46 Discharge Plan Disposition Patient Disposition: Home, Self-Care Condition: Good Discharge Order Discharge Orders: Discharge Order (Routine); Ordered 12/21/23 Ordered By: Oz Chapman Follow up Plan Follow up with: Oz Chapman MD [Primary Care Provider] - 12/27/23 9:45 am Prescriptions/Medication Reconciliation: Continued metformin 500 mg tablet 1,000 mg PO BIDWMEAL carvedilol 12.5 mg tablet 12.5 mg PO BID Patient Comments: TAKE 1 TABLET BY MOUTH TWICE DAILY FOR BLOOD PRESSURE lisinopril 20 mg tablet 20 mg PO DAILY Patient Comments: TAKE 1 TABLET BY MOUTH ONCE DAILY Novolin 70/30 U-100 Insulin 100 unit/mL (70-30) suspension 40 - 50 unit SQ AM clopidogrel 75 mg tablet 75 mg PO DAILY Patient Comments: TAKE 1 TABLET BY MOUTH ONCE DAILY pantoprazole 40 mg tablet,delayed release (DR/EC) 40 mg PO BID Patient Comments: TAKE 1 TABLET BY MOUTH TWICE DAILY FOR 30 DAYS aspirin 81 mg Tablet 81 mg PO DAILY sertraline 50 mg tablet 50 mg PO DAILY Patient Comments: TAKE 1 TABLET BY MOUTH ONCE DAILY Novolin 70/30 U-100 Insulin 100 unit/mL (70-30) suspension 100 unit SQ PM Problem Reconciliation Problems Reviewed?: Yes Patient Discharge Instructions ACTIVITY: Limited activity DIET: diabetic diet Print Language: Belarusian Providers Primary Care Provider: Oz Chapman Admit Provider: Oz Chapman Attending Provider: Oz Chapman
== END 2023-12-21 16:25 | disposition home or self-care (01) ==
LOC: ER 19:42 → 2ND 21:53
PROVIDERS: Family Medicine; Nurse Practitioner Family; Admitting Provider Family Medicine; Emergency Provider Emergency Medicine; PCP Family Medicine; Visit Provider Family Medicine
DX: E11.10 Type 2 diabetes mellitus with ketoacidosis without coma (principal); R42 Dizziness and giddiness; F10.920 Alcohol use, unspecified with intoxication, uncomplicated; E78.2 Mixed hyperlipidemia; E87.6 Hypokalemia; I25.118 Atherosclerotic heart disease of native coronary artery with other forms of angina pectoris; Y90.8 Blood alcohol level of 240 mg/100 ml or more; Z79.4 Long term (current) use of insulin; Z79.899 Other long term (current) drug therapy
CPT/HCPCS: 36415; 70450; 71045; 73610; 73630; 73700; 80048; 80053; 80320; 81001; 82009; 82803; 82962; 83036; 83605; 83690; 83735; 84436; 84443; 84484; 85025; 86803; 87040; 87389; 93005; 99285; G0378; G0480; J1885; J2405; J3411; J7030; J7120

== ENCOUNTER 2024-02-11 08:01 | Outpatient (CLI) | payer MEDICARE, SELFPAY ==
--- OUTSIDE RECORDS SUMMARY | 2024-02-11 08:04 | XMS_ITS | Encounter Summary ---
Author Organization [facility] Address [address] [place] [address] Care Team Providers Care Support Coordinator Name Role Phone Jeremy Chapman MD Primary Care Provider [phone] Encounter Details Date Type Department Care Team (Late st Contact Info) Description 12/02/2022 Telephone [facility] Endocrinology [address] [facility], [address] [place] [address] Maria Ines Amor L, SCREEN PRINTING STENCIL PREPARER [address] [facility] [place] [address] [place] [address] Social History Tobacco Use Types Packs/Day Years Used Date Smoking Tobacco: Former Cigarettes Smokeless Tobacco: Current Chew, Snuff Comments:1/2 can daily-snuff . 1 pack of chew every 3 days. Alcohol Use Standard Drinks/Week Comments Not Currently 0 (1 standard drink = 0.6 oz pur e alcohol) 2 beers daily. Sex and Gender Information Value Date Recorded Sex Assigned at Not on file Legal Sex Male 7:43 PM EDT Gender Identity Not on file Sexual Orientation Not on file documented as of this encounter Miscellaneous Notes * Telephone Encounter - Julianne Quick Carmen - 12/02/2022 2:11 PM EDT Patient Phone Message Reason for Call: [employer] called to see if there is a response from pt's provider about prescribing a statin. Caller said there was a communication faxed yesterday about this. Best contact number and optimal time of day to reach caller: [phone] Note: Please do not reply to this message. Follow-up communication and further actions as a result of this message need to be communicated with the patient directly, if the patient is not active onMyChart. If the patient is active on MyChart, they will receive notification of the communication/outcome via MyChart. documented in this encounter Plan of Treatment Upcoming Encounters Date Type Department Care Team (Late st Contact Info) Description 02/25/2024 1:40 PM EST [facility] [address] [facility], [address] [place] [address] Maria Ines Amor, SCREEN PRINTING STENCIL PREPARER [address] [facility] [address] [place] [address] documented as of this encounter Visit Diagnoses Not on filedocumented in this encounter Additional Health Concerns Assessment Noted Time A fall risk assessment has been complete d for the patient 04/28/2022 2:35 PM EST documented as of this encounter Care Teams Support Coordinator Relationship Specialty Start Date End Date Jeremy Chapman MD [address] [place] [address] [place] [id number] PCP - General 08/02/20 documented as of this encounter
--- OUTSIDE RECORDS SUMMARY | 2024-02-11 08:04 | XMS_ITS | Encounter Summary ---
Author Organization [facility] Address [address] [id number] Care Team Providers Care Project Systems Engineer Name Role Phone Jeremy Chapman MD Primary Care Provider [phone] Reason for Visit * Reason Onset Date Comments Med Refill 06/29/2022 Encounter Details Date Type Department Care Team (Late Contact Info) Description 06/29/2022 Refill [facility] Endocrinology [address], [address] [place] [address] Maria Ines Amor, FOREST WORKER [address] [facility] [address] [place] [address] Type 2 diabetes mellitus with other specified complication, with long-term current use of insulin ([facility]) Social History Tobacco Use Types Packs/Day Years [...] on file documented as of this encounter Plan of Treatment Upcoming Encounters Date Type Department Care Team (Late st Contact Info) Description 02/25/2024 1:40 PM EST Office Visit [facility] Endocrinology [address], [address] [place] [address] Maria Ines Amor, FOREST WORKER [address] [place] [address] documented as of this encounter Visit Diagnoses Diagnosis Type 2 diabetes mellitus with other specified complication, with long-term current use of insulin ([facility]) documented in this encounter Additional Health Concerns Assessment Noted Time A fall risk assessment has been complete d for the patient 04/28/2022 2:35 PM EST documented as of this encounter Care Teams Project Systems Engineer Relationship Specialty Start Date End Date Jeremy Chapman MD [address] [place] [address] [place] [address] PCP - General 08/02/20 documented as of this encounter
--- OUTSIDE RECORDS SUMMARY | 2024-02-11 08:04 | XMS_ITS | Encounter Summary ---
Author Organization [facility] Address [address] [place] [address] Care Team Providers Care Operator Vacuum Name Role Phone Jeremy Chapman MD Primary Care Provider [phone] Encounter Details Date Type Department Care Team (Late Contact Info) Description 12/22/2022 Telephone [facility] Endocrinology [address], [address] [place] [address] [place] [address] Social History Tobacco Use Types Packs/Day Years [...] Description 02/25/2024 1:40 PM EST Office Visit [facility] Endocrinology [address], [address] [place] [address] Maria Ines Amor, FREIGHT BREAKER [address] [facility] [address] [place] [address] documented as of this encounter Visit Diagnoses Not on filedocumented in this encounter Additional Health Concerns Assessment Noted Time A fall risk assessment has been complete d for the patient 04/28/2022 2:35 PM EST documented as of this encounter Care Teams Operator Vacuum Relationship Specialty Start Date End Date Jeremy Chapman MD [address] [place] [address] [place] [address] PCP - General 08/02/20 documented as of this encounter
--- OUTSIDE RECORDS SUMMARY | 2024-02-11 08:04 | XMS_ITS | Encounter Summary ---
Author Organization [facility] Address [address] [place] [address] Care Team Providers Care Plant Custodian Name Role Phone Jeremy Chapman MD Primary Care Provider [phone] Encounter Details Date Type Department Care Team (Late st Contact Info) Description 05/27/2022 Refill [facility] Endocrinology [address] [facility], [address] [place] [address] Maria Ines Amor, CLERICAL RECEPTIONIST [address] [facility] [address] [place] [address] Social History Tobacco Use Types [...] encounter Miscellaneous Notes * Telephone Encounter - Lynnette Davenport - 05/27/2022 12:12 PM EST The pended medications have been requested for refill. Please send to [facility]. documented in this encounter Plan of Treatment Upcoming Encounters Date Type Department Care Team (Late st Contact Info) Description 02/25/2024 1:40 PM EST Office Visit [facility] Endocrinology [address], [address] [place] [address] Maria Ines Amor, CLERICAL RECEPTIONIST [address] [place] [address] documented as of this encounter Visit Diagnoses Not on filedocumented in this encounter Additional Health Concerns Assessment Noted Time A fall risk assessment has been complete d for the patient 04/28/2022 2:35 PM EST documented as of this encounter Care Teams Plant Custodian Relationship Specialty Start Date End Date Jeremy Chapman MD [address] [place] [address] [place] [address] PCP - General 08/02/20 documented as of this encounter
--- OUTSIDE RECORDS SUMMARY | 2024-02-11 08:04 | XMS_ITS | Encounter Summary ---
Author Organization [facility] Address [address] [place] [address] Care Team Providers Care Bread Stacker Name Role Phone Jeremy Chapman MD Primary Care Provider [phone] Encounter Details Date Type Department Care Team (Late st Contact Info) Description 03/24/[address] [facility] Endocrinology [address], [address] [place] [address] Maria Ines Amor, STONE BREAKER [address] [facility] [place] [address] [place] [address] Social History Tobacco Use Types Packs/Day Years Used Date Smoking Tobacco: Former Smokeless Tobacco: Current Chew Alcohol Use Standard Drinks/Week Comments Not Currently 0 (1 standard drink = 0.6 oz pure alcohol) Alcoholic Drinks/day: Former consumption of alcohol Sex and Gender Information Value Date Recorded Sex Assigned at Not on file Legal Sex Male 7:43 PM EDT Gender Identity Not on file Sexual Orientation Not on file documented as of this encounter Plan of Treatment Upcoming Encounters Date Type Department Care Team (Late st Contact Info) Description 02/25/2024 1:40 PM EST Office Visit [facility] Endocrinology [address], [address] [place] [address] Maria Ines Amor, STONE BREAKER [address] [facility] [place] [address] [place] [address] documented as of this encounter Visit Diagnoses Not on filedocumented in this encounter Care Teams Bread Stacker Relationship Specialty Start Date End Date Jeremy Chapman MD [address] [place] [address] [place] [address] PCP - General 08/02/20 documented as of this encounter
--- OUTSIDE RECORDS SUMMARY | 2024-02-11 08:04 | XMS_ITS | Encounter Summary ---
Author Organization [facility] Address [address] [place] [address] Care Team Providers Care Delivery Person Name Role Phone Jeremy Chapman MD Primary Care Provider [phone] Encounter Details Date Type Department Care Team (Late st Contact Info) Description 12/22/2023 Telephone [facility] [address] [place] [address] Jaimie Villegas PharmD [address] [place] [address] Social History Tobacco Use Types Packs/Day Years [...] encounter Miscellaneous Notes * Telephone Encounter - Jaimie Villegas PharmD - 12/22/2023 12:46 PM EDT Patient/Provider contacted by MTM team. Left voicemail for call back. Pharmacy Name: [facility] MTM Platform: Outcomes- CMR documented in this encounter Plan of Treatment Upcoming Encounters Date Type Department Care Team (Late st Contact Info) Description 02/25/2024 1:40 PM EST Office Visit [facility] Endocrinology [address] , [address] [place] [address] Maria Ines Amor, DOCK BOSS [address] [facility] [address] [place] [address] documented as of this encounter Visit Diagnoses Not on filedocumented in this encounter Additional Health Concerns Assessment Noted Time A fall risk assessment has been complete d for the patient 04/28/2022 2:35 PM EST A Body Mass Index follow-up plan has been documented for the patient 12/25/2022 2:36 PM EDT documented as of this encounter Care Teams Delivery Person Relationship Specialty Start Date End Date Jeremy Chapamn MD [address] [place] [address] [place] [address] PCP - General 08/02/20 documented as of this encounter
--- OUTSIDE RECORDS SUMMARY | 2024-02-11 08:04 | XMS_ITS | Encounter Summary ---
Author Organization [facility] Address [address] [id number] Care Team Providers Care Assistant Child Care Teacher Name Role Phone Jeremy Chapman MD Primary Care Provider [phone] Encounter Details Date Type Department Care Team (Late st Contact Info) Description 12/08/2021 Refill [facility] Endocrinology [address] [facility], [address] [place] [address] Maria Ines Amor L, WIRE TEMPERER [address] [facility] [address] [place] [address] Type 2 diabetes mellitus with other specified complication, with long-term current use of insulin ([facility]) Social History Tobacco Use Types Packs/Day Years [...] encounter Miscellaneous Notes * Telephone Encounter - Bárbara Centeno - 12/10/2021 9:38 AM EDT Spoke to patient's (Alondra) today on the phone. She verified that Keshav was still taking Metformin 500mg BID. I counseled them on the new dose of 1000mg BID. She verbalized understanding. * Telephone Encounter - Bárbara Centeno - 12/08/2021 9:59 AM EDT Good morning. Pt needs refills on Novolin 70/30 and Metformin. According to progress note from last visit on 06/27/21, pt's Metformin dose was supposed to be increased from 500 mg BID to 1000 mg BID. No new script called in at that time and it appears that we did not catch the dose change on our end. Patient has still been receiving old dose of Metformin 500mg BID. Please send in new script for Metformin with updated dosing to [facility] if appropriate. documented in this encounter Plan of Treatment Upcoming Encounters Date Type Department Care Team (Late st Contact Info) Description 02/25/2024 1:40 PM EST Office Visit [facility] Endocrinology [address], [address] [place] [address] Maria Ines Amor, WIRE TEMPERER [address] [facility] [address] [place] [address] documented as of this encounter Visit Diagnoses Diagnosis Type 2 diabetes mellitus with other specified complication, with long-term current use of insulin ([facility]) documented in this encounter Care Teams Assistant Child Care Teacher Relationship Specialty Start Date End Date Jeremy Chapman MD [address] [place] [address] [place] [address] PCP - General 08/02/20 documented as of this encounter
--- OUTSIDE RECORDS SUMMARY | 2024-02-11 08:04 | XMS_ITS | Encounter Summary ---
Author Organization [facility] Address [address] [place] [address] Care Team Providers Care A R Specialist Name Role Phone Jeremy Chapman MD Primary Care Provider [phone] Encounter Details Date Type Department Care Team (Latest Contact Info) Description 12/25/2022 Travel Social History Tobacco Use Types Packs/Day Years [...] 02/25/2024 1:40 PM EST Office Visit [facility] Endocrinology [address], [address] [place] [address] Maria Ines Amor, GLOBAL CATEGORY MANAGER [address] [place] [address] [place] [address] documented as of this encounter Visit Diagnoses Not on filedocumented in this encounter Additional Health Concerns Assessment Noted Time A fall risk assessment has been complete d for the patient 04/28/2022 2:35 PM EST A Body Mass Index follow-up plan has been documented for the patient 12/25/2022 2:36 PM EDT documented as of this encounter Care Teams A R Specialist Relationship Specialty Start Date End Date Jeremy Chapman MD [address] [place] [address] [place] [address] PCP - General 08/02/20 documented as of this encounter
--- OUTSIDE RECORDS SUMMARY | 2024-02-11 08:04 | XMS_ITS | Encounter Summary ---
Author Organization [facility] Address [address] [place] [address] Care Team Providers Care Police Lieutenant Precinct Name Role Phone Jeremy Chapman MD Primary Care Provider [phone] Encounter Details Date Type Department Care Team (Late st Contact Info) Description 08/20/2022 Telephone [facility] Endocrinology [address] [facility], [address] [place] [address] Maria Ines Amor L, BOAT CLEANER [address] [facility] [address] [place] [address] Social History Tobacco Use Types [...] * Telephone Encounter - Lynnette Davenport - 08/20/2022 9:19 AM EDT Hi! I have reached out to this pt and his several times to schedule an appointment with clinic forrefills. I have tried to transfer them directly to clinic but states that they will call laterand schedule an appointment during each phone call. Pt and have been made aware that no further refills are allowed without a scheduled appointment at this time. Wanted to reach out to make clinic aware. documented in this encounter Plan of Treatment Upcoming Encounters Date Type Department Care Team (Late st Contact Info) Description 02/25/2024 1:40 PM EST Office Visit [facility] Endocrinology [address] [facility], [address] [place] [address] Maria Ines Amor, BOAT CLEANER [address] [facility] [address] [place] [address] documented as of this encounter Visit Diagnoses Not on filedocumented in this encounter Additional Health Concerns Assessment Noted Time A fall risk assessment has been complete d for the patient 04/28/2022 2:35 PM EST documented as of this encounter Care Teams Police Lieutenant Precinct Relationship Specialty Start Date End Date Jeremy Chapman MD [address] [place] [address] [place] [address] PCP - General 08/02/20 documented as of this encounter
--- OUTSIDE RECORDS SUMMARY | 2024-02-11 08:04 | XMS_ITS | Encounter Summary ---
Author Organization [facility] [place] [facility] Address [address] [place] [address] Care Team Providers Care Blood Bank Supervisor Name Role Phone Jeremy Chapman MD Primary Care Provider [phone] Encounter Details Date Type Department Care Team (Late st Contact Info) Description 02/05/2023 Telephone [facility] Endocrinology [address], [address] [place] [address] Maria Ines Amor L, STONE FINISHER [address] [facility] [place] [address] [place] [address] Social History Tobacco Use Types [...] encounter Miscellaneous Notes * Telephone Encounter - Verenice Patton RD - 02/08/2023 9:02 AM EST Attempted to reach patient. No asnwer, LVM to call us back if still need our help. * Telephone Encounter - Verenice Patton RD - 02/05/2023 4:07 PM EST Attempted to reach patient. No answer, LVM. * Telephone Encounter - Veernice Patton RD - 02/05/2023 1:57 PM EST Attempted to reach patient. Home number is an invalid #. Cell phone number went straight to . LVMrequesting a call back. * Telephone Encounter - Belem Otero - 02/05/2023 9:35 AM EST Patient's stated that he is no longer taking the Farxiga as it was causing him a bad yeast infection . documented in this encounter Plan of Treatment Upcoming Encounters Date Type Department Care Team (Late st Contact Info) Description 02/25/2024 1:40 PM EST Office Visit [facility] Endocrinology [address], [address] [place] [address] Maria Ines Amor, STONE FINISHER [address] [facility] [address] [place] [address] documented as of this encounter Visit Diagnoses Not on filedocumented in this encounter Additional Health Concerns Assessment Noted Time A fall risk assessment has been complete d for the patient 04/28/2022 2:35 PM EST A Body Mass Index follow-up plan has been documented for the patient 12/25/2022 2:36 PM EDT documented as of this encounter Care Teams Blood Bank Supervisor Relationship Specialty Start Date End Date Jeremy Chapman MD [address] [place] [address] [place] [address] PCP - General 08/02/20 documented as of this encounter
--- OUTSIDE RECORDS SUMMARY | 2024-02-11 08:04 | XMS_ITS | Encounter Summary ---
Author Organization [facility] Address [address] [place] [address] Care Team Providers Care Cuff Slitter Name Role Phone Jeremy Chapman MD Primary Care Provider [phone] Encounter Details Date Type Department Care Team (Late st Contact Info) Description 12/25/2022 1:20 PM EDT Office Visit [facility] [address], [address] [place] [address] Maria Ines Amor, BRAKESHOE REPAIRER [address] [facility] [address] [place] [address] Type 2 diabetes mellitus with other specified complication, with long-term current use of insulin ([facility]) (Primary Dx); Neuropathy; Hyperlipidemia, unspecified hyperlipidemia type; Obesity (BMI 30-39.9) Social History Tobacco Use Types Packs/Day Years Used Date Smoking Tobacco: Former Cigarettes Smokeless Tobacco: Current Chew, Snuff Tobacco Cessation:Ready to Q uit: Not Asked; Counseling Given: Not Answered Comments:1/2 can daily-snuff. 1 pack of chew every 3 days. Alcohol Use Standard Drinks/Week Comments Not Currently 0 (1 standard drink = 0.6 oz pur e alcohol) 2 beers daily. Sex and Gender Information Value Date Recorded Sex Assigned at Not on file Legal Sex Male 7:43 PM EDT Gender Identity Not on file Sexual Orientation Not on file documented as of this encounter Last Filed Vital Signs Vital Sign Reading Time Taken Comments Blood Pressure - - Pulse - - Temperature - - Respiratory Rate - - Oxygen Saturation - - Inhaled Oxygen Concentration - - Weight 93 kg (205 lb) 12/25/2022 1:28 PM EDT Height 165.1 cm (5' 5 ) 12/25/2022 1:28 PM EDT Body Mass Index 34.11 12/25/2022 1:28 PM EDT documented in this encounter Miscellaneous Notes * Progress Notes - Maria Ines Amor, BRAKESHOE REPAIRER - 12/25/2022 1:20 PM EDT Subjective Keshav Edwards is a 47 y.o. male who presents for a follow up evaluation of Diabetes Mellitis Type 2. Patient was diagnosed at 36 yrs of age . Current symptoms/problems include hyperglycemia. Patient Verification Patient identity has been confirmed using name and date of ? Yes Authorizations and Agreements/Telemedicine Consent sent and consent confirmed? Yes Patient Location: Patient's Home Patient confirms they are physically located in [place]? Yes If the patient is not physically located in [place], the provider has confirmed with Legal thatthe provider is authorized to provide services in patient's stated location? Yes Provider Location: Provider's Home Audio and video or audio only? Audio and video Total visit time: 40 minutes HPI - last BBDC OV 06/27/21 via [facility], A1c was 8.3% at that time States 11/02/22 A1c was 6.5% a few months ago at PCP office Current treatment includes oral agents and insulin injections: -metformin 1000mg twice a day -70/30 taking 40u in the AM and 80u in the PM (6am and 6pm before meals). Splits PM dose -Compliance at present is estimated to be good. - reports checking glucose twice a day AM: 111, 171, 170, 114, 158, 184, 102, 143, 148 PM: 109, 134, 103, 75, 144, 245, 86, 116, 88, 161 - reports a low every few weeks, carries hard candy or granola bar with him on walks and in the car Known diabetic complications: peripheral neuropathy and cardiovascular disease - intermittent neuropathy Cardiovascular risk factors: diabetes mellitus, dyslipidemia, family history of premature cardiovascular disease, hypertension, male gender and obesity (BMI >= 30 kg/m2) Is he on VIKTORIYA inhibitor or angiotensin II receptor ashley? Yes Is he on a StatinYes Current diet: :well balanced; eating 3 meals a day plus snacks Current exercise: :walking Last eye exam a little over a year ago . Scheduled to go 12/31/22 - denies open areas on feet 11/02/22: lipids: TC 364, HDL 27, TRG 622, LDL, ratio 13.4 The following portions of the chart were reviewed this encounter and updated as appropriate: Tobacco Allergies Meds Problems Med Hx Surg Hx Fam Hx Review of Systems Constitutional: Negative. HENT: Negative. Eyes: Negative. Respiratory: Negative. Cardiovascular: Negative. Gastrointestinal: Negative. Endocrine: See hpi Genitourinary: Negative. Musculoskeletal: Negative. Skin: Negative. Neurological: Negative. Psychiatric/Behavioral: Negative. Objective Physical Exam Constitutional: Appearance: Normal appearance. HENT: Head: Normocephalic. Nose: Nose normal. Pulmonary: Effort: Pulmonary effort is normal. Musculoskeletal: Cervical back: Normal range of motion. Neurological: Mental Status: He is alert and oriented to person, place, and time. Psychiatric: Mood and Affect: Mood normal. Behavior: Behavior normal. Thought Content: Thought content normal. Judgment: Judgment normal. Lab Review No results found for: GLUCOSE , HGBA1C , CHLORIDE , CO2 , BUN , CREATININE Assessment/Plan Diabetes Mellitis Type 1, is controlled. - discussed risk vs benefits of GLP/SGLT2 use, agrees to initiate SGLT2, deferring GLP due to elevated trigs Rx changes: - start farxiga 5mg every day for glycemic and cardiovascular benefits, mailing MAP -continue metformin 1000mg twice a day -continue premix 40u in the AM and 80u in the PM - continue to check blood glucose twice a day before meals - encouraged annual eye exam # neuropathy - stable, denies open areas - encouraged daily foot checks - encouraged good blood glucose control to reduce the risk of complication # HLD -elevated, was off meds at time of labs, recently restarted -continue lopid per pcp # Obesity - stable -BMI: 34.11 -encouraged healthy diabetic diet and exercise as tolerated for optimal glycemic control The patient received dietary education and exercise education because they have an above normal BMI. - hopefully addition of SGLT2 will promote weight loss and decreased insulin requirements The following Diabetes education was reviewed: [x]SBGM to evaluate dose needs []Insulin coverage with carbohydrate intake [x]Site rotation [x] Exercise impact on glucose levels [x]Driving safety related to diabetes []Sick day management []Ketone testing [x]Over treatment of hypoglycemia [x] Hypoglycemia management [x]Call-in line use []Insulin pump pros and cons []Sensor home use []Pump class offerings []Brittanie phenomena []Somogyi effect [] Alcohol related to diabetes []Benefits of written records [x]Pre-meal Bolusing [x]Daily foot care [x] Healthy diet and regular exercise []Long-term complications related to poor diabetes management [] Injection timing related to changes in activity/exercise I personally spent a total of 40 minutes on this encounter. This time includes face to face with patient, counseling and discussion and/or coordination of care. Electronically signed by: Maria Ines Amor APRN [facility] [address] [place]. [address] PHONE [phone] FAX: [phone] documented in this encounter Plan of Treatment Upcoming Encounters Date Type Department Care Team (Late st Contact Info) Description 02/25/2024 1:40 PM EST Office Visit [facility] Endocrinology [address] , [address] [place] [address] Maria Ines Amor APRN [address] [place] [address] [place] [address] documented as of this encounter Visit Diagnoses Diagnosis Type 2 diabetes mellitus with other specified complication, with long-term current use of insulin ([facility])- Primary Neuropathy Mononeuritis of unspecified site Hyperlipidemia, unspecified hyperlipidemia type Obesity (BMI 30-39.9) documented in this encounter Additional Health Concerns Assessment Noted Time A fall risk assessment has been complete d for the patient 04/28/2022 2:35 PM EST A Body Mass Index follow-up plan has been documented for the patient 12/25/2022 2:36 PM EDT documented as of this encounter Care Teams Cuff Slitter Relationship Specialty Start Date End Date Jeremy Chapman MD [address] [place] [id number] PCP - General 08/02/20 documented as of this encounter
--- OUTSIDE RECORDS SUMMARY | 2024-02-11 08:04 | XMS_ITS | Encounter Summary ---
Author Organization [facility] Address [address] [place] [address] Care Team Providers Care Social Welfare Clerk Name Role Phone Jeremy Chapman MD Primary Care Provider [phone] Encounter Details Date Type Department Care Team (Late Contact Info) Description 03/30/2023 Telephone [facility] Endocrinology [address], [address] [place] [address] [place] [address] Social History Tobacco Use Types Packs/Day Years [...] Description 02/25/2024 1:40 PM EST Office Visit [facility] Endocrinology [address], [address] [place] [address] Maria Ines Amor, SEWER REPAIRER [address] [facility] [address] [place] [address] documented as of this encounter Visit Diagnoses Not on filedocumented in this encounter Additional Health Concerns Assessment Noted Time A fall risk assessment has been complete d for the patient 04/28/2022 2:35 PM EST A Body Mass Index follow-up plan has been documented for the patient 12/25/2022 2:36 PM EDT documented as of this encounter Care Teams Social Welfare Clerk Relationship Specialty Start Date End Date Jeremy Chapman MD [address] [place] [address] [place] [id number] PCP - General 08/02/20 documented as of this encounter
--- OUTSIDE RECORDS SUMMARY | 2024-02-11 08:04 | XMS_ITS | Encounter Summary ---
Author Organization [facility] Address [address] [place] [address] Care Team Providers Care Digital Media Representative Name Role Phone Jeremy Chapman MD Primary Care Provider [phone] Encounter Details Date Type Department Care Team (Late st Contact Info) Description 07/14/2023 Refill [facility] Endocrinology [address] [facility], [address] [place] [address] Maria Ines Amor L, LUBE WORKER [address] [facility] [address] [place] [address] Type 2 diabetes mellitus with other specified complication, with long-term current use of insulin ([facility]) Social History Tobacco Use Types Packs/Day Years [...] encounter Miscellaneous Notes * Telephone Encounter - Louis Yañez, PharmD - 07/14/2023 9:14 AM EDT Refill request does not meet protocol. Sending to clinic for review. Additional info: No A1c drawn. Please review. documented in this encounter Plan of Treatment Upcoming Encounters Date Type Department Care Team (Late st Contact Info) Description 02/25/2024 1:40 PM EST Office Visit [facility] Endocrinology [address] [facility], [address] [place] [address] Maria Ines Amor, LUBE WORKER [address] [facility] [address] [place] [address] documented as of this encounter Visit Diagnoses Diagnosis Type 2 diabetes mellitus with other specified complication, with long-term current use of insulin ([facility]) documented in this encounter Additional Health Concerns Assessment Noted Time A fall risk assessment has been complete d for the patient 04/28/2022 2:35 PM EST A Body Mass Index follow-up plan has been documented for the patient 12/25/2022 2:36 PM EDT documented as of this encounter Care Teams Digital Media Representative Relationship Specialty Start Date End Date Jeremy Chapman MD [address] [place] [address] [place] [address] PCP - General 08/02/20 documented as of this encounter
--- OUTSIDE RECORDS SUMMARY | 2024-02-11 08:04 | XMS_ITS | Encounter Summary ---
Author Organization [facility] Address [address] [place] [address] Care Team Providers Care Mechanical Design Engineer Facilities Name Role Phone Jeremy Chapman MD Primary Care Provider [phone] Reason for Visit * Reason Onset Date Comments Med Refill 02/19/2022 Encounter Details Date Type Department Care Team (Late Contact Info) Description 02/19/2022 Refill [facility] [address], [address] [place] [id number] Maria Ines Amor, SILK SCREEN PRINTING RACKER [address] [facility] [address] [place] [address] Social History Tobacco Use Types [...] Encounters Date Type Department Care Team (Late Contact Info) Description 02/25/2024 1:40 PM EST Office Visit [facility]ology [address], [address] [place] [address] Maria Ines Amor, SILK SCREEN PRINTING RACKER [address] [facility] [address] [place] [address] documented as of this encounter Visit Diagnoses Not on filedocumented in this encounter Care Teams Mechanical Design Engineer Facilities Relationship Specialty Start Date End Date Jeremy Chapman MD [address] [place] [address] [place] [id number] PCP - General 08/02/20 documented as of this encounter
--- OUTSIDE RECORDS SUMMARY | 2024-02-11 08:04 | XMS_ITS | Encounter Summary ---
Author Organization [facility] Address [address] [place] [id number] Care Team Providers Care Varnish Finisher Name Role Phone Jeremy Chapman MD Primary Care Provider [phone] Encounter Details Date Type Department Care Team (Late st Contact Info) Description 09/06/2023 Refill [facility] Endocrinology [address] [facility], [address] [place] [address] Maria Ines Amor L, CONTROL INSPECTOR [address] [facility] [address] [place] [address] Type 2 diabetes mellitus with other specified complication, with long-term current use of insulin ([facility]) Social History Tobacco Use Types Packs/Day Years [...] encounter Miscellaneous Notes * Telephone Encounter - Roman Prado, PharmD - 09/06/2023 8:12 AM EDT Per protocol, 1 medication(s), insulin 70/30, has been approved for 30 day supply with 5 refill(s) to specialty pharmacy. * Telephone Encounter - Candy Pa CPhT - 09/06/2023 8:08 AM EDT Novolin 70/30 back in stock, patient wants to switch back from humulin 70/30 at this time. documented in this encounter Plan of Treatment Upcoming Encounters Date Type Department Care Team (Late st Contact Info) Description 02/25/2024 1:40 PM EST Office Visit [facility] Endocrinology [address] [place] [address] Maria Ines Amor, CONTROL INSPECTOR [address] [facility] [address] [place] [address] documented as of this encounter Visit Diagnoses Diagnosis Type 2 diabetes mellitus with other specified complication, with long-term current use of insulin ([facility]) documented in this encounter Additional Health Concerns Assessment Noted Time A fall risk assessment has been complete d for the patient 04/28/2022 2:35 PM EST A Body Mass Index follow-up plan has been documented for the patient 12/25/2022 2:36 PM EDT documented as of this encounter Care Teams Varnish Finisher Relationship Specialty Start Date End Date Jeremy Chapman MD [address] [place] [address] [place] [id number] PCP - General 08/02/20 documented as of this encounter
--- OUTSIDE RECORDS SUMMARY | 2024-02-11 08:04 | XMS_ITS | Encounter Summary ---
Author Organization [facility] Address [address] [place] [address] Care Team Providers Care Mushroom Cultivator Name Role Phone Jeremy Chapman MD Primary Care Provider [phone] Reason for Visit * Reason Onset Date Comments Mervat KAUFFMAN 06/27/2021 Encounter Details Date Type Department Care Team (Late st Contact Info) Description 06/27/2021 Telephone [facility] Diabetes Education [address] , [address] [place] [address] Maria Ines Amor, ORACLE APPLICATION CONSULTANT [address] [facility] [address] [place] [address] Mervat KAUFFMAN Social History Tobacco Use Types Packs/Day Years [...] on file Sexual Orientation Not on file COVID-19 Exposure Response Date Recorded In the last month, have you been in contact with someone who was confirmed or suspected to have Coronavirus / COVID-19? No / Unsure 06/27/2021 1:16 PM EDT documented as of this encounter Miscellaneous Notes * Telephone Encounter - Hailey Garcia - 10/30/2021 1:23 PM EDT The patients phone number is no longer in service.. Email sent.. this is a telehealth apt * Telephone Encounter - Bárbara Centeno - 10/27/2021 12:47 PM EDT Since patient has an upcoming appt coming up on 10/31/21, I just wanted to provide you with an update from our end on the Jardiance. We tried to sign him up for the geotechnical engineer free drug program backin June, however, they denied saying they needed to try to sign up for Medicaid. We relayed this information to pt's , but she told us they were afraid that signing up for Medicaid would mess uphis Medicare coverage. We educated her about this process, but we never heard back from them, and no Medicaid coverage has been established. Please follow up with patient at clinic appt and advise us on what you want to do with his Jardiance going forward. Thanks. * Telephone Encounter - Kaelyn Braxton RD - 07/04/2021 3:07 PM EDT Filled out and signed and faxed back today * Telephone Encounter - Gene Whittington - 07/04/2021 2:40 PM EDT Fax sent - thank you * Telephone Encounter - Kaelyn Braxton RD - 07/04/2021 2:27 PM EDT We have not received this form. Can you please fax it to [phone] * Telephone Encounter - Gene Whittington - 07/04/2021 12:56 PM EDT Received completed patient portion of the Free Drug form for Jardiance, has the provider/clinic hada chance to fill out the provider portion of the form? If so could it be faxed to [phone]? Thank you * Telephone Encounter - Kaelyn Braxton RD - 06/27/2021 4:37 PM EDT Please fax the form to our office [phone] documented in this encounter Plan of Treatment Upcoming Encounters Date Type Department Care Team (Late st Contact Info) Description 02/25/2024 1:40 PM EST Office Visit [facility] Endocrinology [address] [facility], [address] [place] [address] Maria Ines Amor, ORACLE APPLICATION CONSULTANT [address] [facility] [address] [place] [address] documented as of this encounter Visit Diagnoses Not on filedocumented in this encounter Care Teams Mushroom Cultivator Relationship Specialty Start Date End Date Jeremy Chapman MD [address] [place] [address] [place] [address] PCP - General 08/02/20 documented as of this encounter
--- OUTSIDE RECORDS SUMMARY | 2024-02-11 08:04 | XMS_ITS | Encounter Summary ---
Author Organization [facility] Address [address] [place] [id number] Care Team Providers Care Wire Mill Operator Name Role Phone Jeremy Chapman MD Primary Care Provider [phone] Reason for Visit * Reason Onset Date Comments Med Refill 05/04/2022 Encounter Details Date Type Department Care Team (Late Contact Info) Description 05/04/2022 Refill [facility] Endocrinology [address] [place] [address] Maria Ines Amor, DIGITAL SOLUTION ARCHITECT [address] [facility] [address] [place] [address] Type 2 diabetes mellitus with other specified complication, with long-term current use of insulin ([facility]) Social History Tobacco Use Types [...] Description 02/25/2024 1:40 PM EST Office Visit [facility] Endocrinology [address], [address] [place] [address] Maria Ines Amor, DIGITAL SOLUTION ARCHITECT [address] [place] [address] documented as of this encounter Visit Diagnoses Diagnosis Type 2 diabetes mellitus with other specified complication, with long-term current use of insulin ([facility]) documented in this encounter Additional Health Concerns Assessment Noted Time A fall risk assessment has been complete d for the patient 04/28/2022 2:35 PM EST documented as of this encounter Care Teams Wire Mill Operator Relationship Specialty Start Date End Date Jeremy Chapman MD [address] [place] [address] [place] [address] PCP - General 08/02/20 documented as of this encounter
--- OUTSIDE RECORDS SUMMARY | 2024-02-11 08:04 | XMS_ITS | Encounter Summary ---
Author Organization [facility] Address [address] [place] [address] Care Team Providers Care Tax Manager Cpa Name Role Phone Jeremy Chapman MD Primary Care Provider [phone] Reason for Visit * Reason Comments Med Refill Encounter Details Date Type Department Care Team (Late st Contact Info) Description 12/02/2023 Refill [facility] Endocrinology [address] [facility], [address] [place] [address] Maria Ines Amor, TONSORIAL ARTIST [address] [facility] [address] [place] [address] Type 2 diabetes mellitus with other specified complication, with long-term current use of insulin ([facility]) Social History Tobacco Use Types [...] encounter Miscellaneous Notes * Telephone Encounter - Misti Higgins, PharmD - 12/03/2023 9:26 AM EDT 1 medication(s) has been denied per protocol due to: Refill requested too soon per pharmacy pt had refill on file documented in this encounter Plan of Treatment Upcoming Encounters Date Type Department Care Team (Late st Contact Info) Description 02/25/2024 1:40 PM EST Office Visit [facility] Endocrinology [address], [address] [place] [address] Maria Ines Amor, TONSORIAL ARTIST [address] [facility] [address] [place] [address] documented as of this encounter Visit Diagnoses Diagnosis Type 2 diabetes mellitus with other specified complication, with long-term current use of insulin ([facility]) documented in this encounter Additional Health Concerns Assessment Noted Time A fall risk assessment has been complete d for the patient 04/28/2022 2:35 PM EST A Body Mass Index follow-up plan has been documented for the patient 12/25/2022 2:36 PM EDT documented as of this encounter Care Teams Tax Manager Cpa Relationship Specialty Start Date End Date Jeremy Chapman MD [address] [place] [address] [place] [address] PCP - General 08/02/20 documented as of this encounter
--- OUTSIDE RECORDS SUMMARY | 2024-02-11 08:04 | XMS_ITS | Encounter Summary ---
Author Organization [facility] Address [address] [place] [address] Care Team Providers Care Production Illustrator Name Role Phone Jeremy Chapman MD Primary Care Provider [phone] Encounter Details Date Type Department Care Team (Late st Contact Info) Description 07/23/2022 [facility] End[facility] [address], [address] [place] [address] Maria Ines Amor L, LABORATORY CHEMICAL ASSISTANT [address] [place] [address] Type 2 diabetes mellitus with other specified complication, with long-term current use of insulin ([facility]) Social History Tobacco Use Types Packs/Day [...] * Telephone Encounter - Lynnette Davenport - 07/23/2022 12:08 PM EDT Refill request does not meet protocol. Sending to clinic for review. Additional info: No appt in last 12 mo. Please review. documented in this encounter Plan of Treatment Upcoming Encounters Date Type Department Care Team (Late st Contact Info) Description 02/25/2024 1:40 PM EST Office Visit Dilan Nieto [facility] Endocrinology [address], [address] [place] [address] Maria Ines Amor, LABORATORY CHEMICAL ASSISTANT [address] [place] [address] documented as of this encounter Visit Diagnoses Diagnosis Type 2 diabetes mellitus with other specified complication, with long-term current use of insulin ([facility]) documented in this encounter Additional Health Concerns Assessment Noted Time A fall risk assessment has been complete d for the patient 04/28/2022 2:35 PM EST documented as of this encounter Care Teams Production Illustrator Relationship Specialty Start Date End Date Jeremy Chapman MD [address] [place] [address] PCP - General 08/02/20 documented as of this encounter
--- OUTSIDE RECORDS SUMMARY | 2024-02-11 08:04 | XMS_ITS | Encounter Summary ---
Author Organization [facility] Address [address] [place] [address] Care Team Providers Care Airline Stewardess Name Role Phone Jeremy Chapman MD Primary Care Provider [phone] Reason for Visit * Reason Onset Date Comments Med Refill 03/29/2023 Encounter Details Date Type Department Care Team (Late st Contact Info) Description 03/29/2023 Refill [facility] Endocrinology [address], [address] [place] [address] Maria Ines Amor L, AUTO REBUILDER [address] [place] [address] Social History Tobacco Use Types [...] Miscellaneous Notes * Telephone Encounter - Roman Philippe, PharmD - 03/29/2023 1:10 PM EST Per protocol, 1 medication(s), needles, has been approved for 30 day supply with 0 refill(s) to Specialty pharmacy. documented in this encounter Plan of Treatment Upcoming Encounters Date Type Department Care Team (Late st Contact Info) Description 02/25/2024 1:40 PM EST Office Visit Dilan Nieto [facility] Endocrinology [address], [address] [place] [address] Maria Ines Amor, AUTO REBUILDER [address] [place] [address] documented as of this encounter Visit Diagnoses Not on filedocumented in this encounter Additional Health Concerns Assessment Noted Time A fall risk assessment has been complete d for the patient 04/28/2022 2:35 PM EST A Body Mass Index follow-up plan has been documented for the patient 12/25/2022 2:36 PM EDT documented as of this encounter Care Teams Airline Stewardess Relationship Specialty Start Date End Date Jeremy Chapman MD [address] [place] [address] PCP - General 08/02/20 documented as of this encounter
--- OUTSIDE RECORDS SUMMARY | 2024-02-11 08:04 | XMS_ITS | Encounter Summary ---
Author Organization [facility] Address [address] [place] [address] Care Team Providers Care Truck Leasing Manager Name Role Phone Jeremy Chapman MD Primary Care Provider [phone] Encounter Details Date Type Department Care Team (Late st Contact Info) Description 07/28/2023 Telephone [facility] Endocrinology [address], [address] [place] [address] Maria Ines Amor L, PLATE SETTER [address] [place] [address] Social History Tobacco Use [...] encounter Miscellaneous Notes * Telephone Encounter - Vikki Mata - 07/28/2023 11:54 AM EDT Called pharmacy and gave pharmacy a verbal for new insulin brand. Tried to reach pt via phone but number is no longer in service. Will leave message via my chart * Telephone Encounter - Louis Yañez, PharmD - 07/28/2023 11:33 AM EDT Patient is currently taking Novolin 70/30 vials for insulin therapy. Unfortunately, this product has gone on backorder. Pharmacy reports they could switch it to Humulin 70/30 vials but wanted to confirm that this was okay beforehand. Please let me know. Thank you! documented in this encounter Plan of Treatment Upcoming Encounters Date Type Department Care Team (Late st Contact Info) Description 02/25/2024 1:40 PM EST Office Visit [facility] Endocrinology [address], [address] [place] [address] Maria Ines Amor, PLATE SETTER [address] [place] [address] documented as of this encounter Visit Diagnoses Not on filedocumented in this encounter Additional Health Concerns Assessment Noted Time A fall risk assessment has been complete d for the patient 04/28/2022 2:35 PM EST A Body Mass Index follow-up plan has been documented for the patient 12/25/2022 2:36 PM EDT documented as of this encounter Care Teams Truck Leasing Manager Relationship Specialty Start Date End Date Jeremy Chapman MD [address] [place] [address] PCP - General 08/02/20 documented as of this encounter
--- OUTSIDE RECORDS SUMMARY | 2024-02-11 08:04 | XMS_ITS | Encounter Summary ---
Author Organization [facility] Address [address] [place] [address] Care Team Providers Care Pressure Sealer And Tester Name Role Phone Jeremy Chapman MD Primary Care Provider [phone] Encounter Details Date Type Department Care Team (Late Contact Info) Description 06/24/2022 Telephone [facility] Endocrinology [address], [address] [place] [address] [place] [address] Social History Tobacco Use Types Packs/Day Years [...] Description 02/25/2024 1:40 PM EST Office Visit [facility] Endocrinology [address], [address] [place] [address] Maria Ines Amor, TOY PACKER [address] [facility] [address] [place] [address] documented as of this encounter Visit Diagnoses Not on filedocumented in this encounter Additional Health Concerns Assessment Noted Time A fall risk assessment has been complete d for the patient 04/28/2022 2:35 PM EST documented as of this encounter Care Teams Pressure Sealer And Tester Relationship Specialty Start Date End Date Jeremy Chapman MD [address] [place] [address] PCP - General 08/02/20 documented as of this encounter
--- OUTSIDE RECORDS SUMMARY | 2024-02-11 08:04 | XMS_ITS | Encounter Summary ---
Author Organization [facility] Address [address] [place] [address] Care Team Providers Care Vacuum Spindle Sander Name Role Phone Jeremy Chapman MD Primary Care Provider [phone] Encounter Details Date Type Department Care Team (Late Contact Info) Description 04/28/2022 Telephone [facility] Endocrinology [address], [address] [place] [address] [place] [address] Social History Tobacco Use Types Packs/Day Years [...] Description 02/25/2024 1:40 PM EST Office Visit [facility] Endocrinology [address], [address] [place] [address] Maria Ines Amor, BEATER LEAD [address] [place] [address] documented as of this encounter Visit Diagnoses Not on filedocumented in this encounter Additional Health Concerns Assessment Noted Time A fall risk assessment has been complete d for the patient 04/28/2022 2:35 PM EST documented as of this encounter Care Teams Vacuum Spindle Sander Relationship Specialty Start Date End Date Jeremy Chapman MD [address] [place] [address] PCP - General 08/02/20 documented as of this encounter
--- OUTSIDE RECORDS SUMMARY | 2024-02-11 08:04 | XMS_ITS | Clinical Summary ---
Author Organization [facility] Address [address] [place] [address] Care Team Providers Care Nautical Instrument Mechanic Name Role Phone Jeremy Chapman MD Primary Care Provider [phone] Allergies No known active allergies Medications atorvastatin (Lipitor) 80 MG tablet TAKE 1 TABLET DAILY. 7 Active carvedilol (Coreg) 12.5 MG tablet 1 Active clopidogrel (Plavix) 75 MG tablet 1 Active gemfibrozil (Lopid) 600 MG tablet 1 Active hydroCHLOROthia zide (HYDRODiuril) 12.5 MG tablet TAKE 1 TABLET DAILY. 7 Active lisinopril 20 MG tablet TAKE 1 TABLET DAILY. 7 Active pantoprazole (Protonix) 40 MG EC tablet Take 40 mg by mouth 2 (two) times a day. 2 Active sertraline (Zoloft) 50 MG tablet Take 50 mg by mouth 1 (one) time each day. 2 Active dapagliflozin (Farxiga) 5 MG tabletIndicatio ns:Type 2 diabetes mellitus with other specified complication, with long-term current use of insulin (CMS/HCC) Take 1 tablet (5 mg) by mouth 1 (one) time each day. 30 tablet 2 3 Active metFORMIN (Glucophage) 500 MG tabletIndicatio ns:Type 2 diabetes mellitus with other specified complication, with long-term current use of insulin (CMS/HCC) Take 2 tablets (1,000 mg) by mouth 2 (two) times a day with meals. 360 tablet 3 3 Active Insulin Syringe-Needle U-100 (UltiCare Insulin Syringe) 30G X /16 1 ML misc Use to inject insulin two times a day 100 each 4 Active insulin NPH-insulin regular (INSULIN NPH ISOPHANE & REGULAR HUMAN INJ) (70-30) 100 UNIT/ML SC injection vialIndications :Type 2 diabetes mellitus with other specified complication, with long-term current use of insulin ([facility]) Inject 0.4 mL (40 Units) under the skin 1 (one) time each day before breakfast AND 0.8 mL (80 Units) 1 (one) time each day before evening meal. 40 mL 5 4 09/06/19 25 Active Active Problems Problem Noted Date Diagnosed Date Neuropathy 12/25/2022 Type 2 diabetes mellitus, wi th long-term current use of insulin 07/06/2021 Hypertension 07/06/2021 Hyperlipidemia 07/06/2021 Obesity (BMI 30-39.9) 07/06/2021 Encounters Date Type Department Care Team Description 01/04/2024 Refill [facility] Endocrinology [address] , [address] [place] [address] Maria Ines Amor APRN Type 2 diabetes mellitus with other specified complication, with long-term current use of insulin ([facility]) 12/22/2023 Telephone [facility] [address] [place] [address] Jaimie Villegas, PharmD 12/02/2023 Refill [facility] Endocrinology [address] [place] [address] Maria Ines Amor APRN Type 2 diabetes mellitus with other specified complication, with long-term current use of insulin ([facility]) 11/16/2023 [facility] [address] [place] [address] Maria Ines Amor APRN Type 2 diabetes mellitus with other specified complication, with long-term current use of insulin ([facility]) from Last 3 Months Family History Medical History Relation Name Comments Hypertension Father Lung cancer Father Diabetes Mother Hyperlipidemia Mother Hypertension Mother Relation Name Status Comments Father Mother Social History Tobacco Use Types Packs/Day Years [...] on file Sexual Orientation Not on file Last Filed Vital Signs Vital Sign Reading Time Taken Comments Blood Pressure 138/75 10/03/2019 10:58 AM EDT Pulse - - Temperature - - Respiratory Rate - - Oxygen Saturation - - Inhaled Oxygen Concentration - - Weight 93 kg (205 lb) 12/25/2022 1:28 PM EDT Height 165.1 cm (5' 5 ) 12/25/2022 1:28 PM EDT Body Mass Index 34.11 12/25/2022 1:28 PM EDT Plan of Treatment Upcoming Encounters Date Type Department Care Team (Late st Contact Info) Description 02/25/2024 1:40 PM EST Office Visit [facility] Endocrinology [address] [place] [address] Maria Ines Amor, MAIL TECHNICIAN [address] [place] [address] Health Maintenance Due Date Last Done Comments [facility]-Depression Screening 1975 [facility]-Diabetes: Hemoglobin A1C 1975 [facility]-HIV Screening 1975 [facility]-Hepatitis C Screening 1975 [facility]-Medicare Annual Wellness (AWV) 1975 [facility]-Infant/Child/Adol SDOH Screenings 1975 [id number] Vaccine (#1) 06/07/1980 [facility]-Pneumococcal Vaccine: Pediatrics (0 to 5 Years) and At-Risk Patients (6 to 64 Years) (1 of 2 - PCV) 06/07/1981 Diabetes: Dental Exam 06/07/1985 [facility]- SDOH Screenings 06/07/1993 [facility]-Adult SDOH Screenings 06/07/1993 [facility]-DTaP,Tdap,and Td Vaccine s (1 - Tdap) 06/07/1994 [facility]-Hepatitis B Vaccines (1 of 3 - 19+ 3-dose series) 06/07/1994 [facility]-Zoster Vaccines (1 of 2) 06/07/1994 CT Colonography 06/07/2020 Colonoscopy 06/07/2020 FIT-DNA 06/07/2020 FIT 06/07/2020 FOBT 06/07/2020 Sigmoidoscopy 06/07/2020 [facility]-Colorectal Cancer Screening 06/07/2020 [facility]-Influenza Vaccine (#1) 2023 01/09/2022 [facility]-RSV Vaccine: 60+ Years o r (1 - 1-dose 75+ series) 06/07/2050 [facility]-Obesity Intervention Completed 12/25/2022 [facility]-HIB Vaccines Aged Out No longer e ligible based on patient's age to complete this topic [facility]-HPV Vaccines Aged Out No longer e ligible based on patient's age to complete this topic [facility]-Hepatitis A Vaccines Aged Out No longer eligible based on patient's age to complete this topic [facility]-IPV Vaccines Aged Out No longer e ligible based on patient's age to complete this topic [facility]-Rotavirus Vaccines Aged Out No lo nger eligible based on patient's age to complete this topic Insurance [facility] MEDIC[facility] Care Teams Nautical Instrument Mechanic Relationship Specialty Start Date End Date Jeremy Chapman MD [address] [place] [address] PCP - General 08/02/20
--- OUTSIDE RECORDS SUMMARY | 2024-02-11 08:04 | XMS_ITS | Encounter Summary ---
Author Organization [facility] Address [address] [place] [address] Care Team Providers Care Farmer General Name Role Phone Jeremy Chapman MD Primary Care Provider [phone] Reason for Visit * Reason Comments Med Refill Encounter Details Date Type Department Care Team (Late st Contact Info) Description 01/04/2024 Refill Dilan Nieto [facility] Endocrinology [address], [address] [place] [address] Maria Ines Amor, STEEPING PRESS OPERATOR [address] [place] [address] Type 2 diabetes mellitus with other specified complication, with long-term current use of insulin ([facility]) Social History Tobacco Use Types [...] encounter Miscellaneous Notes * Telephone Encounter - Donna Burks PharmD - 01/04/2024 10:30 AM EDT Refill request does not meet protocol. Sending to clinic for review. Additional info: Patient has not completed required labs (BMP or CMP) in > 12 months. Please review. documented in this encounter Plan of Treatment Upcoming Encounters Date Type Department Care Team (Late st Contact Info) Description 02/25/2024 1:40 PM EST Office Visit Dilan Nieto [facility] Endocrinology [address], [address] [place] [address] Maria Ines Amor, STEEPING PRESS OPERATOR [address] [place] [address] documented as of this encounter Visit Diagnoses Diagnosis Type 2 diabetes mellitus with other specified complication, with long-term current use of insulin ([facility]) documented in this encounter Additional Health Concerns Assessment Noted Time A fall risk assessment has been complete d for the patient 04/28/2022 2:35 PM EST A Body Mass Index follow-up plan has been documented for the patient 12/25/2022 2:36 PM EDT documented as of this encounter Care Teams Farmer General Relationship Specialty Start Date End Date Jeremy Chapman MD [address] [place] [address] PCP - General 08/02/20 documented as of this encounter
--- OUTSIDE RECORDS SUMMARY | 2024-02-11 08:04 | XMS_ITS | Encounter Summary ---
Author Organization [facility] Address [address] [place] [address] Care Team Providers Care Clinical Medical Transcriptionist Name Role Phone Jeremy Chapman MD Primary Care Provider [phone] Encounter Details Date Type Department Care Team (Late st Contact Info) Description 11/16/2023 [facility] End[facility] [address] [place] [address] Maria Ines Amor L, RETAIL MORTGAGE BANKER [address] [place] [address] Type 2 diabetes mellitus with other specified complication, with long-term current use of insulin ([facility]) Social History Tobacco Use Types [...] Telephone Encounter - Misti Higgins, PharmD - 11/16/2023 3:55 PM EDT Refill request does not meet protocol. Sending to clinic for review. Additional info: Appointment compliance - Patient has not followed up in clinic as requested. Please review for scheduling and if refills are appropriate. Also no labs on file with clinic. documented in this encounter Plan of Treatment Upcoming Encounters Date Type Department Care Team (Late st Contact Info) Description 02/25/2024 1:40 PM EST Office Visit [facility] Endocrinology [address], [address] [place] [address] Maria Ines Amor, RETAIL MORTGAGE BANKER [address] [place] [address] documented as of this encounter Visit Diagnoses Diagnosis Type 2 diabetes mellitus with other specified complication, with long-term current use of insulin ([facility]) documented in this encounter Additional Health Concerns Assessment Noted Time A fall risk assessment has been complete d for the patient 04/28/2022 2:35 PM EST A Body Mass Index follow-up plan has been documented for the patient 12/25/2022 2:36 PM EDT documented as of this encounter Care Teams Clinical Medical Transcriptionist Relationship Specialty Start Date End Date Jeremy Chapman MD [address] [place] [address] PCP - General 08/02/20 documented as of this encounter
--- OUTSIDE RECORDS SUMMARY | 2024-02-11 08:04 | XMS_ITS | Encounter Summary ---
Author Organization [facility] Address [address] [place] [address] Care Team Providers Care Entry Level Management Name Role Phone Jeremy Chapman MD Primary Care Provider [phone] Reason for Visit * Reason Onset Date Comments Med Refill 08/31/2022 Encounter Details Date Type Department Care Team (Late st Contact Info) Description 08/31/2022 Refill [facility] Endocrinology [address], [address] [place] [address] Maria Ines Amor L, RESIDENTIAL COLLECTIONS [address] [place] [address] Type 2 diabetes mellitus with other specified complication, with long-term current use of insulin ([facility]) Social History Tobacco Use Types [...] as of this encounter Miscellaneous Notes * Addendum Note - Rachel Child, ANGELE, RD - 09/04/2022 9:11 AM EDTAddended by: RACHEL CHILD on: 09/04/2022 09:11 AM Modules accepted: Orders * Addendum Note - Bárbara Centeno - 09/04/2022 9:03 AM EDTAddended by: BÁRBARA CENTENO on: 09/04/2022 09:03 AM Modules accepted: Orders * Telephone Encounter - Bárbaar Centeno - 09/04/2022 8:58 AM EDT Please see note below. Pt is out of medication and now has appt on schedule. [facility] so we can get it to him prior to holiday weekend. * Telephone Encounter - Lynnette Davenport - 09/02/2022 11:17 AM EDT Pt now has appt scheduled and is out of medication. Please review if refills for novolin and metformin are appropriate since pt has appt scheduled. * Telephone Encounter - Lynnette Davenport - 08/31/2022 8:29 AM EDT Refill request does not meet protocol. Sending to clinic for review. Additional info: Appointment compliance - Patient has not followed up in clinic as requested. Please review for scheduling and if refills are appropriate. documented in this encounter Plan of Treatment Upcoming Encounters Date Type Department Care Team (Late st Contact Info) Description 02/25/2024 1:40 PM EST Office Visit [facility] Endocrinology [address], [address] [place] [address] Maria Ines Amor, RESIDENTIAL COLLECTIONS [address] [place] [address] documented as of this encounter Visit Diagnoses Diagnosis Type 2 diabetes mellitus with other specified complication, with long-term current use of insulin ([facility]) documented in this encounter Additional Health Concerns Assessment Noted Time A fall risk assessment has been complete d for the patient 04/28/2022 2:35 PM EST documented as of this encounter Care Teams Entry Level Management Relationship Specialty Start Date End Date Jeremy Chapman MD [address] [place] [address] PCP - General 08/02/20 documented as of this encounter
--- OUTSIDE RECORDS SUMMARY | 2024-02-11 08:04 | XMS_ITS | Encounter Summary ---
Author Organization [facility] Address [address] [place] [address] Care Team Providers Care History Teacher Name Role Phone Jeremy Chapman MD Primary Care Provider [phone] Reason for Visit * Reason Onset Date Comments Med Refill 12/08/2021 Encounter Details Date Type Department Care Team (Late Contact Info) Description 12/08/2021 Refill [facility] Endocrinology [address] [place] [phone] Verenice Patton, RD [address] [place] [address] Type 2 diabetes mellitus with other specified complication, with long-term current use of insulin ([facility]) Social History Tobacco Use Types [...] Description 02/25/2024 1:40 PM EST Office Visit [facility] Endocrinology [address] [place] [address] Maria Ines Amor, COPPERSMITH APPRENTICE [address] [place] [address] documented as of this encounter Visit Diagnoses Diagnosis Type 2 diabetes mellitus with other specified complication, with long-term current use of insulin ([facility]) documented in this encounter Care Teams History Teacher Relationship Specialty Start Date End Date Jeremy Chapman MD [address] [place] [address] PCP - General 08/02/20 documented as of this encounter
--- OUTSIDE RECORDS SUMMARY | 2024-02-11 08:05 | XMS_ITS | Encounter Summary ---
Author Organization [facility] Address [address] [place] [address] Care Team Providers Care Visual Basic .Net Developer Name Role Phone Jeremy Chapman MD Primary Care Provider [phone] Reason for Visit * Reason Onset Date Comments Med Refill 10/14/2020 Encounter Details Date Type Department Care Team (Late st Contact Info) Description 10/14/2020 Refill [facility] [address] , [address] [place] [phone] Maria Ines Amor, DENTAL CERAMIST ASSISTANT [address] [facility] [place] [address] [place] [address] Social History Tobacco Use Types Packs/Day Years Used Date Smoking Tobacco: Former Alcohol Use Standard Drinks/Week Comments Not Currently [...] 02/25/2024 1:40 PM EST Office Visit [facility] Endocrinology [address] , [address] [place] [address] Maria Ines Amor, DENTAL CERAMIST ASSISTANT [address] [facility] [address] [address] [place] [address] documented as of this encounter Visit Diagnoses Not on filedocumented in this encounter Care Teams Visual Basic .Net Developer Relationship Specialty Start Date End Date Jeremy Chapman MD [address] [place] [address] [place] [address] PCP - General 08/02/20 documented as of this encounter
--- OUTSIDE RECORDS SUMMARY | 2024-02-11 08:05 | XMS_ITS | Encounter Summary ---
Author Organization [facility] Address [address] [place] [address] Care Team Providers Care Microgrinder Operator Name Role Phone Unavailable Primary Care Provider Unavailabl e Encounter Details Date Type Department Care Team (Late st Contact Info) Description 08/26/2016 [facility] Vitals Encounter [facility] [address] [place] [address] Provider, MD Paula [address] [place] [address] Social History Tobacco Use Types Packs/Day Years Used Date Smoking Tobacco: Never Assessed Sex and Gender Information Value Date Recorded [...] - Inhaled Oxygen Concentration - - Weight 83.5 kg (183 lb 15.9 oz) 017 11:07 AM EDT Height 165.1 cm (5' 5 ) 08/26/2016 11:0 7 AM EDT Body Mass Index 30.62 08/26/2016 11:07 AM EDT documented in this encounter Plan of Treatment Upcoming Encounters Date Type Department Care Team (Late st Contact Info) Description 02/25/2024 1:40 PM EST Office Visit [facility]an [facility] Endocrinology [address], [address] [place] [address] Maria Ines Amor, SENIOR CONTRACTS MANAGER [address] [place] [address] [place] [address] documented as of this encounter Visit Diagnoses Not on filedocumented in this encounter
--- OUTSIDE RECORDS SUMMARY | 2024-02-11 08:05 | XMS_ITS ---
Author Organization [facility] Address [address] [place] [id number] Care Team Providers Care House Detective Name Role Phone Diana Chapman Primary Care Provider Shawna Mohamud [phone] REASON FOR VISIT Message Encounters Encounter Location Date Provider Diagnosis [facility] [address] [place] [id number] 12/27/2023 Shawna Mohamud PLAN OF TREATMENT Next Appt Details Provider Name:Shawna terry, 02/28/2024 09:30:00 AM, [address], [address], [place], [id number], Provider Name:Shawna terry, 03/27/2024 09:45:00 AM, [address], [address], [place], [id number],
--- OUTSIDE RECORDS SUMMARY | 2024-02-11 08:05 | XMS_ITS | Encounter Summary ---
Author Organization [facility] Address [address] [place] [address] Care Team Providers Care Fitter Helper Name Role Phone Jeremy Chapman MD Primary Care Provider Encounter Details Date Type Department Care Team (Late st Contact Info) Description 06/24/2021 [facility] [facility], [address] [place] [address] Hailey Garcia [facility] [address] [place] [id number] Social History Tobacco Use Types Packs/Day Years [...] - - Weight 93 kg (205 lb) 06/24/2021 1:00 PM EDT Height 165.1 cm (5' 5 ) 06/24/2021 1:00 PM EDT Body Mass Index 34.11 06/24/2021 1:00 PM EDT documented in this encounter Miscellaneous Notes * Telephone Encounter - Hailey Garcia - 06/24/2021 2:38 PM EDT All information was verified per patient .... pt is aware this is a TeleHealth appointment via [employer] documented in this encounter Plan of Treatment Upcoming Encounters Date Type Department Care Team (Late st Contact Info) Description 02/25/2024 1:40 PM EST [facility] [address] [facility], [address] [place] [phone] Maria Ines Amor, PROJECT CREW WORKER [address] [facility] [place] [address] [place] [address] documented as of this encounter Visit Diagnoses Not on filedocumented in this encounter Care Teams Fitter Helper Relationship Specialty Start Date End Date Jeremy Chapman MD [address] [place] [address] [place] [address] PCP - General 08/02/20 documented as of this encounter
--- OUTSIDE RECORDS SUMMARY | 2024-02-11 08:05 | XMS_ITS ---
Author Organization [facility] Address [address] [facility] [address] [place] [id number] Care Team Providers Care Medical Pathology Teacher Name Role Phone Diana Chapman Primary Care Provider [phone] REASON FOR VISIT Refills MEDICATIONS Medication SIG (Take, Route, Fr equency, Duration) Notes Start Date End Date Status Protonix 40 MG 1 tab(s) orally 2 ti mes a day for 30 days Active Encounters Encounter Location Date Provider Diagnosis [facility] [address] [place] [id number] 12/27/2023 Diana Chapman PLAN OF TREATMENT Medication Medication Name Sig Start Date Stop Date Notes Protonix 40 MG 1 tab(s) orally 2 times a day for 30 days Next Appt Details Provider Name:Shawna terry, 02/28/2024 09:30:00 AM, [address], [place], [id number], Provider Name:Shawna terry, 03/27/2024 09:45:00 AM, [address], [place], [id number],
--- OUTSIDE RECORDS SUMMARY | 2024-02-11 08:05 | XMS_ITS | Encounter Summary ---
Author Organization [facility] Address [address] [place] [id number] Care Team Providers Care Financial Services Technician Name Role Phone Jeremy Chapman MD Primary Care Provider [phone] Reason for Visit * Reason Onset Date Comments Med Refill 03/31/2021 Encounter Details Date Type Department Care Team (Late st Contact Info) Description 03/31/[facility] [address] , [address] [place] [address] Maria Ines Amor, IRONWORKER WIRE FENCE ERECTOR [address] [facility] [place] [address] [place] [address] Type 2 diabetes mellitus with other specified complication, with long-term current use of insulin ([facility]) (Primary Dx) Social History Tobacco Use Types Packs/Day Years [...] Description 02/25/2024 1:40 PM EST [facility] [address] , [address] [place] [address] Maria Ines Amor, IRONWORKER WIRE FENCE ERECTOR [address] [facility] [place] [address] [place] [address] documented as of this encounter Visit Diagnoses Diagnosis Type 2 diabetes mellitus with other specified complication, with long-term current use of insulin ([facility])- Primary documented in this encounter Care Teams Financial Services Technician Relationship Specialty Start Date End Date Jeremy Chapman MD [address] [place] [address] [place] [address] PCP - General 08/02/20 documented as of this encounter
--- OUTSIDE RECORDS SUMMARY | 2024-02-11 08:05 | XMS_ITS | Encounter Summary ---
Author Organization [facility] Address [address] [place] [address] Care Team Providers Care Classification Analyst Name Role Phone Jeremy Chapman MD Primary Care Provider [phone] Encounter Details Date Type Department Care Team (Late Contact Info) Description 06/27/2021 Orders Only [facility] Endocrinology [address] [place] [address] Tyesha Darling I RN [address] [place] [address] [place] [address] Type 2 diabetes mellitus with other specified complication, with long-term current use of insulin ([facility]) Social History Tobacco Use [...] PM EDT documented as of this encounter Plan of Treatment Upcoming Encounters Date Type Department Care Team (Late Contact Info) Description 02/25/2024 1:40 PM EST Office Visit [facility] Endocrinology [address], [address] [place] [address] Maria Ines Amor, CHIEF TECHNICIAN [address] [place] [address] [place] [address] documented as of this encounter Visit Diagnoses Diagnosis Type 2 diabetes mellitus with other specified complication, with long-term current use of insulin ([facility]) documented in this encounter Care Teams Classification Analyst Relationship Specialty Start Date End Date Jeremy Chapman MD [address] [place] [address] [place] [address] PCP - General 08/02/20 documented as of this encounter
--- OUTSIDE RECORDS SUMMARY | 2024-02-11 08:05 | XMS_ITS | Encounter Summary ---
Author Organization [facility] Address [address] [place] [address] Care Team Providers Care Gold Buyer Name Role Phone Jeremy Chapman MD Primary Care Provider [phone] Encounter Details Date Type Department Care Team (Latest Contact Info) Description 06/27/2021 Travel Social History Tobacco Use Types Packs/Day [...] Description 02/25/2024 1:40 PM EST [facility] [address] , [address] [place] [address] Maria Ines Amor, FIELD MARKETING LEAD [address] [place] [address] [place] [address] documented as of this encounter Visit Diagnoses Not on filedocumented in this encounter Care Teams Gold Buyer Relationship Specialty Start Date End Date Jeremy Chapman MD [facility] [place] [address] [place] [address] PCP - General 08/02/20 documented as of this encounter
--- OUTSIDE RECORDS SUMMARY | 2024-02-11 08:05 | XMS_ITS | Encounter Summary ---
Author Organization [facility] Address [address] [place] [address] Care Team Providers Care Gericare Aide Name Role Phone Jeremy Chapman MD Primary Care Provider [phone] Reason for Visit * Reason Onset Date Comments Med Refill 01/10/2021 Encounter Details Date Type Department Care Team (Late st Contact Info) Description 01/10/2021 [facility] [address], [address] [place] [phone] Maria Ines Amor, INSPECTOR MATERIALS AND PROCESSES [address] [facility] [place] [address] [place] [address] Social History Tobacco Use Types [...] Description 02/25/2024 1:40 PM EST Office [facility] Endocrinology [address], [address] [place] [address] Maria Ines Amor, INSPECTOR MATERIALS AND PROCESSES [address] [facility] [place] [address] [place] [address] documented as of this encounter Visit Diagnoses Not on filedocumented in this encounter Care Teams Gericare Aide Relationship Specialty Start Date End Date Jeremy Chapman MD [address] [place] [address] [place] [address] PCP - General 08/02/20 documented as of this encounter
--- OUTSIDE RECORDS SUMMARY | 2024-02-11 08:05 | XMS_ITS | Encounter Summary ---
Author Organization [facility] Address [address] [place] [address] Care Team Providers Care Stars Analytical Lead Name Role Phone Jeremy Chapman MD Primary Care Provider [phone] Encounter Details Date Type Department Care Team (Late Contact Info) Description 04/30/2021 Refill [facility] [address] [place] [address] Ileana Lawrence [facility] [address] [place] [address] Social History Tobacco Use Types Packs/Day Years [...] Description 02/25/2024 1:40 PM EST Office Visit [facility] Endocrinology [address] [place] [address] Maria Ines Amor, RETAIL SERVICE SPECIALIST [address] [facility] [place] [address] [place] [address] documented as of this encounter Visit Diagnoses Not on filedocumented in this encounter Care Teams Stars Analytical Lead Relationship Specialty Start Date End Date Jeremy Chapman MD [address] [place] [address] [place] [address] PCP - General 08/02/20 documented as of this encounter
--- OUTSIDE RECORDS SUMMARY | 2024-02-11 08:05 | XMS_ITS | Patient Health Record ---
Author Organization [facility] Address [address] [place] [id number] Care Team Providers Care Airport Utility Worker Name Role Phone Diana Chapman Primary Care Provider Shawna Mohamud Unavailable [phone] ALLERGIES No Known Allergies RESULTS Component Value Reference Range Notes H-CBC Reviewed date:12/21/2023 08:39:19 AM Interpretation: Performing Lab: Notes/Report: WBC 9.5 4.8-10.8 K/mm3 Delta: 14.0 o n 12/20/23 RBC 4.44 4.60-6.20 M/mm3 HGB 13.7 14.1-18.0 g/dL Delta: 16.9 o n 12/20/23 HCT 41.1 42.0-52.0 % MCV 92.6 80-94 fl MCH 30.8 27.0-31.2 pg MCHC 33.3 31.8-35.4 g/dL RDW 13.7 11.5-17.5 % PLT 281 142-424 K/mm3 Delta: 424 on 12/20/23 MPV 8.9 7.4-10.4 fl NE% 62.5 37.0-80.0 % LY% 27.4 10-50 % MO% 8.0 1.7-9.3 % EO% 1.3 0.1-12.0 % BA% 0.7 0.1-2.0 % NE# 6.0 1.8-7.8 K/mm3 LY# 2.6 0.7-4.5 K/mm3 MO# 0.8 0.1-1.0 K/mm3 EO# 0.1 0.0-0.4 K/mm3 BA# 0.1 0-0.2 K/mm3 H-CMP Reviewed date:12/21/2023 08:39:19 AM Interpretation: Performing Lab: Notes/Report: NA 136 136-145 mmol/L K 3.2 3.5-5.1 mmoL/L CL 100 98-107 mmol/L CO2 24 22.0-30.0 mmol/L GAP 15.2 5-15 mEq/L BUN 12 9-20 mg/dl CREATT 0.50 0.66-1.25 mg/dl Delta: 0.70 on 12/20/23 CRCLE 244 50-200 mL/min GFRAA 215 >60 ML/MIN Delta: 146 on 12/20/23 EGFR 177 >60 ml/min GLU 76 74-100 mg/dl Delta: 200 on 12/20/23 CA 8.6 8.4-10.2 mg/dl BILIT 0.5 0.2-1.3 mg/dl AST 45 17-59 U/L Delta: 64 on ALT 89 12-78 U/L Delta: 129 on 12/20/23 TP 7.1 6.3-8.2 g/dl Delta: 9.6 on 12/20/23 ALB 3.9 3.5-5.0 g/dl Delta: 4.7 on 12/20/23 GLOB 3.2 1.3-3.2 g/dL AGRATIO 1.2 1.1-1.8 ALP 96 38-126 U/L H-Magnesium Reviewed date:12/21/2023 08:39:19 AM Interpretation: Performing Lab: Notes/Report: MG 1.9 1.6-2.3 mg/dl M-HIV (1&2) Antibody Rapid Reviewed date:12/21/2023 10:24:08 AM Interpretation: Performing Lab: Notes/Report: [id number] NONREACTIVE NONREACTIVE P-Lipid Panel Reviewed date:12/28/2023 12:55:37 PM Interpretation:chol 502, trigs 1057, hdl 32, chol/hdl 15.69, non-hdl 470 Performing Lab: Notes/Report: Test performed by [facility] [address] [place] [address] , [address], [place] [address] Alton Nuñez MD, Emergency Medicine Physician Assistant COLTON: [id number] Cholesterol 502 <200 mg/dL Triglycerides 1057 <150 mg/dL HDL Cholesterol 32 >39 mg/dL Cholesterol / HDL Ratio 15.69 0.00-4.99 Ratio Non-HDL Cholesterol 470 <130 mg/dL LDL Cholesterol (Calculation) SEE COMMENT <130 mg/dL LDL Cholesterol Levels* Less than 100 mg/dL Optimal 100 to 129 mg/dL Near Optimal/ Above Optimal 130 to 159 mg/dL Borderline High 160 to 189 mg/dL High 190 mg/dL and above Very High * Categories as recommended by the 2004 ATPIII guidelines Unable to calculate due to Triglycerides >400 mg/dL LDL/HDL Ratio SEE COMMENT <3.3 Ratio Unable to calculate due to Triglycerides >400 mg/dL LDL Cholesterol Patient History Test Date: 12/27/2023 LDL Results: SEE COMMENT Units: mg/dL % Change: - P-Comprehensive Metabolic Pa viv (CMP) Reviewed date:12/28/2023 12:55:56 PM Interpretation:Na 134, cl 96, gluc 111, Cr 0.68, alt 72 Performing Lab: Notes/Report: Test performed by [facility] [address] , [address], [place] [address] Alton Nuñez MD, Emergency Medicine Physician Assistant CLIA: [id number] Sodium 134 135-145 mmol/L Potassium 4.4 3.5-5.3 mmol/L Chloride 96 97-108 mmol/L CO2 25 22-32 mmol/L Glucose 111 65-99 mg/dL BUN 14 6-20 mg/dL Creatinine 0.68 0.70-1.30 mg/dL Calcium 10.2 8.6-10.4 mg/dL eGFR by Creatinine 114 >59 mL/min/1.73m2 Protein 7.7 6.0-8.3 g/dL Albumin 4.6 3.5-5.3 g/dL Alkaline Phosphatase 110 40-129 IU/L ALT (SGPT) 72 <5-55 IU/L AST (SGOT) 39 <5-46 IU/L Bilirubin, Total 0.3 <0.2-1.2 mg/dL A/G Ratio 1.5 1.1-2.5 Glycohemoglobin A1c (in hous e) Reviewed date:12/28/2023 12:55:17 PM Interpretation:8.3% Performing Lab: Notes/Report: 8.3% glycohemoglobin 8.3% 5 - 6.5 % CBC Venipuncture (in house) Reviewed date:12/28/2023 12:54:59 PM Interpretation: Performing Lab: Notes/Report: wbc 8.0 3.5 - 10 lymph 27.9 15 - 50 mid 6.0 2 - 15 gran 66.1 35 - 80 rbc 5.19 3.5 - 5.5 hgb 15.7 11.5 - 16.5 hct 45.5 35 - 55 mcv 87.6 75 - 100 mch 30.3 25 - 35 mchc 34.6 31 - 38 platlet 287 100 - 400 HCVABRFXRNA Reviewed date:12/22/2023 10:47:46 AM Interpretation: Performing Lab: Notes/Report: TESTINFO Comment . Not infected with HCV unless early or acute infection is suspected (which may be delayed in an immunocompromised individual), or other evidence exists to indicate HCV infection. Performed at: [facility] [address] [id number] Environmental Services Floor Tech: Sebastian Milan PhD, Phone: [phone] HCVAB2 Non Reactive Non Reactive H-BMP Reviewed date:12/22/2023 10:47:46 AM Interpretation: Performing Lab: Notes/Report: NA 132 136-145 mmol/L K 3.9 3.5-5.1 mmoL/L Delta: 3.2 on 12/21/23 CL 99 98-107 mmol/L CO2 27 22.0-30.0 mmol/L GAP 9.9 5-15 mEq/L BUN 13 9-20 mg/dl CREATT 0.60 0.66-1.25 mg/dl CRCLE 203 50-200 mL/min GFRAA 174 >60 ML/MIN EGFR 144 >60 ml/min GLU 169 74-100 mg/dl Delta: 76 on CA 8.7 8.4-10.2 mg/dl REASON FOR REFERRAL No Information MEDICATIONS Medication SIG (Take, Route, Frequency, Duration) Notes Start Date End Date Status Plavix 75 MG 1 tab(s) orally once a day Active Gemfibrozil 600 MG take 1 tablet by paxton twice daily for 90 days Orally Twice a day for 90 days Active Atorvastatin Calcium 80 MG 1 tab(s) oral ly once a day (at bedtime) for 90 day(s) 08/20/2016 Activ e Fenofibrate Micronized 200 MG 1 capsule with a meal Orally Once a day for 30 day(s) 12/28/2023 Active Protonix 40 MG 1 tab(s) orally 2 ti mes a day for 30 days Active Coreg 3.125 MG 1 tablet with food O rally Twice a day 03/12/2016 Active Nitroglycerin 0.4 MG 1 tab(s) sublingual ly every 5 minutes prn 06/09/2021 Active Potassium Chloride ER 10 MEQ 1 cap(s) orally Once a day for 90 days Active Mounjaro 2.5 MG/0.5ML 2.5 mg Subcutaneou s weekly for 30 days 12/27/2023 Active Aspirin 81 MG 1 tab(s) orally once a day Active metFORMIN HCl 1000 MG 1 tab(s) orally BID 08/21/19 17 Active Lisinopril 20 MG 1 tablet orally Once a day Active NovoLIN 70/30 (70-30) 100 UNIT/ML 0 subcutaneously 50 in AM and 100 units at night Active Sertraline HCl 50 MG 1 tab(s) orally once a day Active IMMUNIZATIONS Vaccine Route Administration Date Status Comme nts COVID 19 Sana Unknown 06/26/2020 Administered Fluzone PF Quad (6-35 months) Unknown 12/27/2019 Administered Fluzone PF Quad (6-35 months) Unknown 01/09/2022 Administered Fluzone Quad (6months&older) IM Intramuscular 12/08/2016 Administered Fluzone Quad (6months&older) IM Intramuscular 12/05/2018 Administered Fluzone Quad (6months&older) IM Intramuscular 12/27/2023 Administered Fluzone Quad-Medicare (6months&older) IM Intramuscular 12/04/2014 Administered Given by Sadie Fluzone Quad-Medicare (6months&older) IM Intramuscular 01/06/2016 Administered PNEUMOVAX 23 VACCINE IM Intramuscular 12/09/2011 Administered Prevnar (PCV20) Unknown 01/09/2022 Administered xFluzone (6mos and older)-trivalent IM Intramuscular 01/23/2013 Administered xFluzone Intradermal (18-64yrs)-trivalen t-medicare pts ID Intradermal 12/09/2011 Administered SOCIAL HISTORY Sex Assigned At : Social History Observation Description Sex Assigned At Unknown PROBLEMS Problem Type ICD Code Onset Dates Problem Status W/U Status Risk SNOMED Code Notes Problem GERD (gastroesophageal reflux disease) (K21.9) Active confirmed Gastroesophagea l reflux disease (534904387) Problem Type 2 diabetes mellitus with other circulatory complications (E11.59) Active confirmed 74347633 Problem Hyponatremia (E87.1) Active confirmed 61106700 Problem HTN (hypertension) (I10) Active confirmed Hypertension (56378413) Problem Mixed hyperlipidemia (E78.2) Active confirmed 682375598 Problem Primary insomnia (F51.01) Active confirmed 6339001 Problem Onychomycosis (B35.1) Active confirmed 281384482 Problem Male erectile disorder (N52.9) Active confirmed 985004619 Problem Gastroesophageal reflux disease without esophagitis (K21.9) Active confirmed 323522607 Problem Situational depression (F43.21) Active confirmed 38760529 Problem Depression (F32.9) Active confirmed Dep ression (056076911) Problem Atherosclerosis of shoalwater coronary artery of shoalwater heart with unstable angina pectoris (I25.110) Active confirmed 4546211144212 Problem Hyperlipidemia, unspecified hyperlipidemia type (E78.5) Active confirmed 11310481 Problem Current use of insulin (Z79.4) Active confirmed 001396587 Problem Atherosclerosis of shoalwater coronary artery without angina pectoris, unspecified whether shoalwater or transplanted heart (I25.10) Active confirmed 431795646 Problem Coronary artery disease involving shoal[place] coronary artery of shoalwater heart with angina pectoris (I25.119) Active confirmed 0852703927779 Problem 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) Active confirmed 885718669 Problem Diabetic 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) Active confirmed 11997643 Problem Type 2 diabetes mellitus without complication, unspecified whether jail insulin use (E11.9) Active confirmed 307107177 Problem 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, 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) Active confirmed 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 (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) VITAL SIGNS Heart Rate 87 /min 12/27/2023 Blood pressure diastolic 80 mm Hg 12/27/2023 Height 65 in 12/27/2023 Blood pressure systolic 128 mm Hg 12/27/2023 Weight 216.4 lbs 12/27/2023 BMI 36.01 kg/m2 12/27/2023 Encounters Encounter Location Date Provider Diagnosis [facility] [address] [facility] [address] [place] [id number] 02/15/2023 Diana Chapman [facility] [address] [facility] [address] [place] [id number] 12/27/2023 Shawna Mohamud Colon cancer screeni Z12.11 ; Stable angina I20.89 ; Type 2 diabetes mellitus without complication, unspecified whether jail insulin use E11.9 ; Hyperlipidemia, unspecified hyperlipidemia type E78.5 ; Atherosclerosis of shoalwater coronary artery without angina pectoris, unspecified whether shoalwater or transplanted heart I25.10 ; Hypokalemia E87.6 ; Current use of insulin Z79.4 ; 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, angina presence unspecified I25.811 ; GERD (gastroesophageal reflux disease) K21.9 ; Depression F32.9 and HTN (hypertension) I10 [facility] [address] [facility] [address] [place], [place] [id number] 12/27/2023 Diana Chapman [facility] [address] [facility] [address] [place] [id number] 12/27/2023 Shawna Mohamud [facility] [address] [facility] [address] [place] [id number] 12/28/2023 Shawna Mohamud ASSESSMENTS Encounter Date Diagnosis Assessment Notes Treatment Notes Treatment Clinical Notes 12/27/2023 Colon cancer screening (ICD-10 - Z12.11) 12/27/2023 Stable angina (ICD-1 0 - I20.89) 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 12/27/2023 Type 2 diabetes mellitus without complication, unspecified whether jail insulin use (ICD-10 - E11.9) discussed dietary changes; he has already made some; also to stop alcohol; would like to try Mountjaro ; will fax to pharm to see if covered 12/27/2023 Hyperlipidemia, unspecified hyperlipidemia type (ICD-10 - E78.5) [facility] would not fill Gemfibrozil with the statin 12/27/2023 Atherosclerosis of shoalwater coronary artery without angina pectoris, unspecified whether shoalwater or transplanted heart (ICD-10 - I25.10) 12/27/2023 Hypokalemia (ICD-10 - E87.6) 12/27/2023 Current use of insulin (ICD-10 - Z79.4) 12/27/2023 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, angina presence unspecified (ICD-10 - I25.811) 12/27/2023 GERD (gastroesophageal reflux disease) (ICD-10 - K21.9) 12/27/2023 Depression (ICD-10 - F32.9) 12/27/2023 HTN (hypertension) (ICD-10 - I10) 12/27/2023 Other will make eye appt PLAN OF TREATMENT Pending Test Test Name Order Date Cologuard 12/27/2023 Next Appt Details Provider Name:Shawna terry, 02/28/2024 09:30:00 AM, [address] [facility], [address], [place], [place], [id number], Provider Name:Shawna terry, 03/27/2024 09:45:00 AM, [address], [address], [place], [id number], Insurance Providers Payer Name Payer Address Payer Phone Subscriber Number Group Number Insured Name Patient Relationship to Insured Coverage Start Date Coverage End Date [employer] (MEDICAR E) [address] [address] [place] [address] [phone] [id number] Keshav Edwards Self - patient is the insured MEDICAL (GENERAL) HISTORY Medical History History ICD Code acid reflux hyperlipidemia hypertension type 2 diabetes Psoriasis 12/01 normal carotid duplex 12/01 normal MRI COVID 19 Vaccination, J&J 06/26/20 COVID 19 infection, Mar 2021 CAD Surgical History Surgery Date(Month/Year) lt arm sx (pins and screws) back X 3 2007 stent 08/2011 Hernia Surgery 08/07 Hospitalization History Reason Date(Month/Year) see above [facility] stay- [facility]26[facility]12[facility]04
--- OUTSIDE RECORDS SUMMARY | 2024-02-11 08:05 | XMS_ITS | Encounter Summary ---
Author Organization [facility] Address [address] [id number] Care Team Providers Care Landscape Maintenance Internship Name Role Phone Jeremy Chapman MD Primary Care Provider [phone] Encounter Details Date Type Department Care Team (Late st Contact Info) Description 03/10/2021 Telephone [facility] Endocrinology [address] [facility], [address] [place] [address] Maria Ines Amor L, PAPERBACK MACHINE OPERATOR [address] [facility] [address] [place] [address] Social History Tobacco Use Types [...] encounter Miscellaneous Notes * Telephone Encounter - Mychal Gallardomina Post - 03/10/2021 8:25 AM EST Medication Refill Request Medication Name & Dosage: Novolin 70/30 Preferred Pharmacy & Location: [facility] Days of medication remaining (if under 3 days please emir as urgent): Pt is on last bottle Best contact number and optimal time of day to reach caller: [phone] Additional comments/information from caller: Pt would like to know if he can get refills until his appt in June Note: Please do not reply to this [...] Description 02/25/2024 1:40 PM EST [facility] [address] [facility], [address] [place] [address] Maria Ines Amor, PAPERBACK MACHINE OPERATOR [address] [facility] [address] [place] [phone] documented as of this encounter Visit Diagnoses Not on filedocumented in this encounter Care Teams Landscape Maintenance Internship Relationship Specialty Start Date End Date Jeremy Chapman MD [address] [place] [address] PCP - General 08/02/20 documented as of this encounter
--- OUTSIDE RECORDS SUMMARY | 2024-02-11 08:05 | XMS_ITS | Encounter Summary ---
Author Organization [facility] Address [address] [place] [address] Care Team Providers Care Deputy Attorney General Name Role Phone Unavailable Primary Care Provider Unavailabl e Encounter Details Date Type Department Care Team (Late st Contact Info) Description 12/02/2016 [facility] Vitals Encounter [facility] [address] [place] [address] Provider, MD Paula [address] [place] [address] Social History Tobacco Use Types Packs/Day [...] - Inhaled Oxygen Concentration - - Weight 86.8 kg (191 lb 5.8 oz) 12/02/2016 1:31 P M EDT Height 165.1 cm (5' 5 ) 12/02/2016 1:31 PM EDT Body Mass Index 31.84 12/02/2016 1:31 PM EDT documented in this encounter Plan of Treatment Upcoming Encounters Date Type Department Care Team (Late st Contact Info) Description 02/25/2024 1:40 PM EST Office Visit [facility] [address] , [address] [place] [address] Maria Ines Amor, GRIND OPERATOR [address] [place] [address] documented as of this encounter Visit Diagnoses Not on filedocumented in this encounter
--- OUTSIDE RECORDS SUMMARY | 2024-02-11 08:05 | XMS_ITS | Encounter Summary ---
Author Organization [facility] Address [address] [place] [address] Care Team Providers Care Internet Salesperson Name Role Phone Jeremy Chapman MD Primary Care Provider [phone] Encounter Details Date Type Department Care Team (Late st Contact Info) Description 06/27/2021 1:20 PM EDT [facility] [address] [facility], [address] [place] [address] Maria Ines Amor, PAIRER [address] [facility] [address] [place] [address] Type 2 diabetes mellitus with other specified complication, with long-term current use of insulin ([facility]) (Primary Dx); Hypertension, unspecified type; Hyperlipidemia, unspecified hyperlipidemia type; Obesity (BMI 30-39.9) [...] as of this encounter Miscellaneous Notes * Progress Notes - Maria Ines Amor, PAIRER - 06/27/2021 1:20 PM EDT Subjective Keshav Edwards is a 46 y.o. male who presents for an follow up evaluation of Diabetes Mellitis Type 2. Patient was diagnosed at 36 yrs of age. Current symptoms/problems include hyperglycemia. HPI A1c 8.3% last week with PCP Current treatment includes oral agents and insulin injections: metformin 1000mg twice a day And premix 52u in the AM and 104u in the PM Known diabetic complications: cardiovascular disease Compliance at present is estimated to be good. Cardiovascular risk factors: diabetes mellitus, dyslipidemia, family history of premature cardiovascular disease, hypertension, male gender and obesity (BMI >= 30 kg/m2) Is he on VIKTORIYA inhibitor or angiotensin II receptor [place]? Yes Is he on a StatinYes Current diet: {diet habits:well balanced Current exercise: {exercise types:no regular exercise - checking blood glucose 2-3 times a day -see scanned document in media tab for details Last eye exam a little over a year ago The following portions of the chart were reviewed this encounter and updated as appropriate: Review of Systems Constitutional: Negative. HENT: Negative. [...] normal. Lab Review No results found for: GLUCOSE, HGBA1C, CO2, BUN, CREATININE Assessment/Plan Diabetes Mellitis Type 1, is uncontrolled. Rx changes: continue metformin 1000mg twice a day And premix 52u in the AM and 104u in the PM - start jaridance 25g every day # Obesity -BMI: -encouraged healthy diabetic diet and exercise as tolerated for optimal glycemic control The patient received dietary education and exercise education because they have an above normal BMI.;tn # HLD -stable -continue statin # Obesity -BMI: 34.11 -encouraged healthy diabetic diet and exercise as tolerated for optimal glycemic control The patient received dietary education and exercise education because they have an above normal BMI. The following Diabetes education was reviewed: []SBGM to evaluate dose needs []Insulin coverage with carbohydrate intake []Site rotation [] Exercise impact on glucose levels [x]Driving safety related to diabetes []Sick day management []Ketone testing [x]Over treatment of hypoglycemia [x] Hypoglycemia management [x]Call-in line use []Insulin pump pros and cons []Sensor home use []Pump class offerings []Brittanie phenomena []Somogyi effect [] Alcohol related to diabetes []Benefits of written records [x]Pre-meal Bolusing [x]Daily foot care [x] Healthy diet and regular exercise [x]Long-term complications related to poor diabetes management [] Injection timing related to changes in activity/exercise Patient Verification Patient identity has been confirmed using name and date of ? Yes Authorizations and Agreements/Telemedicine Consent sent and consent confirmed? Yes Patient Location: Patient's Home Patient confirms they are physically located in [place]? Yes If the patient is not physically located in [place], the provider has confirmed with Legal thatthe provider is authorized to provide services in patient's stated location? Yes Provider Location: Provider's Home Audio and video or audio only? Audio and video Total visit time: 35 minutes I personally spent a total of 35 minutes on this encounter. This time includes face to face with patient, counseling and discussion and/or coordination of care. Electronically signed by: Maria Ines Amor APRN [facility] END[facility]CRINOLOGY [address] [facility] [address] [place] [address]. [phone] PHONE [phone] FAX: [phone] documented in this encounter Plan of Treatment Upcoming Encounters Date Type Department Care Team (Late st Contact Info) Description 02/25/2024 1:40 PM EST Office Visit [facility] [address], [address] [place] [address] Maria Ines Amor APRN [address] [place] [address] documented as of this encounter Visit Diagnoses Diagnosis Type 2 diabetes mellitus with other specified complication, with long-term current use of insulin ([facility])- Primary Hypertension, unspecified type Hyperlipidemia, unspecified hyperlipidemia type Obesity (BMI 30-39.9) documented in this encounter Care Teams Internet Salesperson Relationship Specialty Start Date End Date Jeremy Chapman MD [address] [place] [address] PCP - General 08/02/20 documented as of this encounter
--- OUTSIDE RECORDS SUMMARY | 2024-02-11 08:05 | XMS_ITS | Encounter Summary ---
Author Organization [facility] Address [address] [place], [place] [address] Care Team Providers Care College And Career Counselor Name Role Phone Jeremy Chapman MD Primary Care Provider [phone] Encounter Details Date Type Department Care Team (Late st Contact Info) Description 01/29/2021 Refill [facility] [address] , [address] [place] [address] Maria Ines Amor, DIGITAL FIELD SERVICE TECHNICIAN [address] [facility] [address] [place] [address] Social History Tobacco Use Types [...] Office Visit [facility]ocrinology [address], [address] [place] [address] Maria Ines Amor, DIGITAL FIELD SERVICE TECHNICIAN [address] [facility] [address] [place] [address] documented as of this encounter Visit Diagnoses Not on filedocumented in this encounter Care Teams College And Career Counselor Relationship Specialty Start Date End Date Jeremy Chapman MD [address] [place] [address] PCP - General 08/02/20 documented as of this encounter
--- OUTSIDE RECORDS SUMMARY | 2024-02-11 08:05 | XMS_ITS | Encounter Summary ---
Author Organization [facility] Address [address] [place] [id number] Care Team Providers Care Creamery Worker Name Role Phone Jeremy Chapman MD Primary Care Provider [phone] Reason for Visit * Reason Onset Date Comments Med Refill 04/04/2021 Encounter Details Date Type Department Care Team (Late st Contact Info) Description 04/04/2021 [facility] [address], [address] [place] [phone] Maria Ines Amor, MOTOR COACH OPERATOR [address] [facility] [address] [place] [address] Social History Tobacco Use Types [...] Description 02/25/2024 1:40 PM EST Office Visit [facility] Endocrinology [address] [place] [address] Maria Ines Amor, MOTOR COACH OPERATOR [address] [facility] [address] [place] [address] documented as of this encounter Visit Diagnoses Not on filedocumented in this encounter Care Teams Creamery Worker Relationship Specialty Start Date End Date Jeremy Chapman MD [address] [place] [address] PCP - General 08/02/20 documented as of this encounter
--- OUTSIDE RECORDS SUMMARY | 2024-02-11 08:05 | XMS_ITS ---
Author Organization [facility] Address [address] [place] [id number] Care Team Providers Care Instrumentation Technician Name Role Phone Diana Chapman Primary Care Provider Shawna Mohamud [phone] MEDICATIONS Medication SIG (Take, Route, Frequency, Duration) Notes Start Date End Date Status Fenofibrate Micronized 200 MG 1 capsule with a meal Orally Once a day for 30 day(s) 12/28/2023 Active Encounters Encounter Location Date Provider Diagnosis [facility] [address] [place] [id number] 12/28/2023 Shawna Mohamud PLAN OF TREATMENT Medication Medication Name Sig Start Date Stop Date Notes Fenofibrate Micronized 200 MG 1 capsule with a meal Orally Once a day for 30 day(s) 12/28/2023 Next Appt Details Provider Name:Shawna terry, 02/28/2024 09:30:00 AM, Sergio Vasquez, [place], [id number], Provider Name:Shawna terry, 03/27/2024 09:45:00 AM, Sergio Vasquez, [place], [id number],
--- OUTSIDE RECORDS SUMMARY | 2024-02-11 08:05 | XMS_ITS | Encounter Summary ---
Author Organization [facility] Address [address] [place] [address] Care Team Providers Care Breakfast Hostess Name Role Phone Unavailable Primary Care Provider Unavailabl e Encounter Details Date Type Department Care Team (Late st Contact Info) Description 10/03/2019 [facility] Vitals Encounter [facility] [address] [place] [address] Provider, MD Paula [address] [place] [address] Social History Tobacco Use Types Packs/Day [...] Concentration - - Weight 93 kg (205 lb 0.1 oz) 10/03/2019 10:58 AM EDT Height - - Body Mass Index 34.11 12/02/2016 1:31 PM EDT documented in this encounter Plan of Treatment Upcoming Encounters Date Type Department Care Team (Late st Contact Info) Description 02/25/2024 1:40 PM EST Office Visit [facility] Endocrinology [address], [address] [place] [address] Maria Ines Amor, PSYCHOLOGIST SOCIAL [address] [place] [address] documented as of this encounter Visit Diagnoses Not on filedocumented in this encounter
[2024-02-11] MEDS: INCLISIRAN SODIUM 284 MG/1.5 ML SYRINGE SUBCUT (08:15)
[2024-02-11 08:17] VITALS: BP 140/94; PULSE 82; RESP 18; O2SAT 96
== END 2024-02-11 08:17 | disposition home or self-care (01) ==
LOC: INF 08:02
PROVIDERS: PCP Family Medicine; Visit Provider Nurse Practitioner Family
DX: E78.5 Hyperlipidemia, unspecified (principal)
CPT/HCPCS: 96372; J1306

== ENCOUNTER 2024-05-15 07:51 | Outpatient (CLI) | payer MEDICARE, SELFPAY ==
[2024-05-15 08:12] VITALS: BP 143/90; PULSE 82; RESP 16; TEMP 36.8; O2SAT 97
[2024-05-15] MEDS: INCLISIRAN SODIUM 284 MG/1.5 ML SYRINGE SUBCUT (08:12)
== END 2024-05-15 08:31 | disposition home or self-care (01) ==
LOC: INF 07:51
PROVIDERS: PCP Family Medicine; Visit Provider Nurse Practitioner Family
DX: E78.5 Hyperlipidemia, unspecified (principal)
CPT/HCPCS: 96372; J1306

== ENCOUNTER 2024-07-25 08:11 | Outpatient (CLI) | payer MEDICARE, SELFPAY ==
[2024-07-25 09:04] LABS: Basophils % 0.5 % (0.1-2.0); Eosinophils # 0.1 Kmm3 (0.0-0.4); Eosinophils % 1.3 % (0.1-12.0); Hematocrit 44.6 % (42.0-52.0); Hemoglobin 15.2 g/dL (14.1-18.0); Lymphocytes # 2.4 K/mm3 (0.7-4.5); Lymphocytes % 30.3 % (10-50); Mean Corpuscular HGB Conc 34.1 g/dL (31.8-35.4); Mean Corpuscular Hemoglobin 29.5 pg (27.0-31.2); Mean Corpuscular Volume 86.4 fl (80-94); Mean Platelet Volume 10.1 fl (7.4-10.4); Monocytes # 0.6 K/mm3 (0.1-1.0); Monocytes % 7.3 % (1.7-9.3); Neutrophils # 4.8 K/mm3 (1.8-7.8); Neutrophils % 60.3 % (37.0-80.0); Nucleated Red Blood Cells # 0 10^3/uL; Nucleated Red Blood Cells % 0 %; Platelet Count 265 K/mm3 (142-424); Red Blood Count 5.16 M/mm3 (4.60-6.20); Red Cell Distribution Width 11.9 % (11.5-17.5); Red Cell Distribution Width-SD 37.9 fL
[2024-07-25 09:30] LABS: Alanine Aminotransferase 42 U/L (12-78); Albumin Level 4.6 g/dl (3.5-5.0); Albumin/Globulin Ratio 1.8 (1.1-1.8); Alkaline Phosphatase 69 U/L (38-126); Anion Gap 9.3 mEq/L (5-15); Aspartate Amino Transferase 32 U/L (17-59); Bilirubin,Total 0.4 mg/dl (0.2-1.3); Blood Urea Nitrogen 11 mg/dl (9-20); Calcium 9.6 mg/dl (8.4-10.2); Carbon Dioxide 31 mmol/L (22.0-30.0); Chloride 102 mmol/L (98-107); Chol/HDL Ratio 3.3 (1-3.5); Cholesterol 143 mg/dl (140-200); Estimated Glomerular Filt Rate 143 ml/min (>60); GFR (African American) 173 ML/MIN (>60); Globulin 2.5 g/dL (1.3-3.2); Glucose 154 mg/dl (74-100); HDL Cholesterol 44 mg/dl (40-60); Potassium 4.3 mmoL/L (3.5-5.1); Sodium 138 mmol/L (136-145); Total Protein,Serum 7.1 g/dl (6.3-8.2); Triglycerides 214 mg/dl (30-150); VLDL Cholesterol 43 mg/dL (0-40)
[2024-07-25 09:41] LABS: Direct LDL Cholesterol 55.26 mg/dL (100-129)
[2024-07-25 09:43] LABS: Creatinine,Urine Random 39 mg/dL (Not Estab.)
[2024-07-25 09:46] LABS: Microalbumin < 6.000 mg/L (0-16.7)
[2024-07-25 09:58] LABS: Prostate Specific Ag Screen 1.1 ng/ml (0.0-4.0)
== END 2024-07-25 23:59 | disposition home or self-care (01) ==
PROVIDERS: PCP Nurse Practitioner Family; Visit Provider Nurse Practitioner Family
DX: Z12.5 Encounter for screening for malignant neoplasm of prostate (principal); E11.9 Type 2 diabetes mellitus without complications; E78.5 Hyperlipidemia, unspecified; I10 Essential (primary) hypertension
CPT/HCPCS: 36415; 80053; 80061; 82043; 82570; 83036; 85025; G0103

== ENCOUNTER 2024-11-13 08:00 | Outpatient (CLI) | payer MEDICARE, SELFPAY ==
--- OUTSIDE RECORDS SUMMARY | 2024-02-28 05:30 | XMS_ITS ---
Author Organization Re Address [address] [facility] [address] [place] [id number] Care Team Providers Care Concrete Pourer Name Role Phone Diana Chapman Primary Care Provider Shawna Mohamud [phone] Allergies No Known Allergies REASON FOR VISIT check up on medications Encounters Encounter Location Date Provider Diagnosis [facility] [address] [facility] [address] [place] [id number] 02/28/2024 Shawna Mohamud Plan Of Treatment No Information Progress Notes * Kiya MANDELOB:1975 (49 yo M)Acc No.[id number]:02/28/2024 Progress Notes Patient: Keshav YIP Provider: PRINCESS Tucker :1975 A ge:48 Y S ex:Male Date:02/28/2024 Address:[address] [id number] Pcp:Diana Chapman Subjective: * Chief Complaints: * 1 . Check up on medications. * HPI: H PI: 48 year old male presents with c/o Patient is here today for?Pt is here today for a check up on medications. * ROS: C ARDIOLOGY: Positive for p lans to make cardiology appt. C hest pain y es, h as daily chest pain; requires NTG 2-3 times weekly. S hortness of breath y es. D ERMATOLOGY: no R mara. n o H raffi. G ASTROENTEROLOGY: no N ausea. n o V omiting. n o D iarrhea.? M USCULOSKELETAL: Joint pain y es, o ngonig back problems with pain ; has had 3 back surgeries; left ankle pain has lessened after fall on the ankle. U ROLOGY: no D ifficulty urinating. n o B lood in urine. * Medical History: A chichi reflux, Hyperlipidemia, Hypertension, Type 2 diabetes, Psoriasis, 12/01 normal carotid duplex, 12/01 normal MRI, COVID 19 Vaccination, J&J 06/26/20, COVID 19 infection, Mar 2021, CAD. * Surgical History: l t arm sx (pins and screws) , back X 2007, stent 08/2011, Hernia Surgery 08/07. * Hospitalization/Major Diagno stic Procedure: s ee above , [facility] stay- Chest pain 12/25/14, [facility]- Chest pain 12/26-12/04. * Family History: F ather: alive 67 yrs. M other: alive 69 yrs, diagnosed with Diabetes, Cancer. 2 brother(s) , 3 sister(s) . 1 son(s) , 1 daughter(s) . . + family histroy of colon cancer--. * Social History: C URRENT TOBACCO USE S moking Status: Patient does NOT smoke, Second hand smoke exposure: No. C affeine: yes, frequency:coffee and tea, qd. Home smoke detector use: yes. Marital Status: . Past smoking status: no, Smoking status: Does not smoke, Former Smoker: Yes, Quit smokin03/2011, Smoking pack year history: 2. Alcohol: No. Sexually active: no.. * Allergies: N .K.D.A. Objective: * Vitals: Assessment: Plan: * Treatment: * Procedure Codes: G 2211 Complex e/m visit add on * Images: Billing Information: * Visit Code: * Procedure Codes: G2211 Complex e/m visit add on. * Electronic signature of Bárbara Mohamud APRN on 11/13/2024 at 08:03 AM EDT Sign off status: Pending * Provider: PRINCESS Tucker Date: 04/30/2023 Generated for Parveen key/Wilber/eTransmitting on: 0 11/13/2024 08:03 AM EDT History and Physical Notes * HPI (History of Present Illness) Category Sub-Category Detail Notes Category Not es HPI Patient is here today for Pt is here today for a check up on medications
--- OUTSIDE RECORDS SUMMARY | 2024-07-25 05:30 | XMS_ITS ---
[facility] [address] [place] [id number] Care Team Providers Care Exterior Designer Name Role Phone Diana Chapman Primary Care Provider Shawna Mohamud Unavailable [phone] Allergies No Known Allergies Reason For Referral Reason enlarging right wris t cyst with increasing neuropathy Diagnosis 1 Benign cyst of skin (L72.9) [facility] Referring Provider First Name Shawna Referring Provider Last Name Oneida Referring Provider Speciality [facility] Referred Provider Specialty Hand Surgery General Notes Amita Cosme 2024 11:37:07 AM > sent referral to [facility] through website Referral Priority Routine REASON FOR VISIT 3 month check and AWV, Due for Diabetic Eye Exam, Ask patient if he has completed ordered Cologuard Medications Medication SIG (Take, Route, Frequency, Duration) Notes Start Date End Date Status Potassium Chloride ER 10 MEQ 1 cap(s) orally Once a day; Duration: 15 days pt needs appt Active Atorvastatin Calcium 80 MG TAKE 1 TABLET BY MOUTH ONCE DAILY AT BEDTIME Orally Once a day; Duration: 90 days Active Sertraline HCl 50 MG 1 tablet Orally Onc e a day; Duration: 90 days Active Fenofibrate Micronized 200 MG 1 capsule with a meal Orally Once a day; Duration: 30 day(s) 12/28/2023 Active Coreg 3.125 MG 1 tablet with food Orally Twice a day; Duration: 90 days 03/12/2016 Active metFORMIN HCl 1000 MG 1 tab(s) orally BID 08/21/19 17 Active NovoLIN 70/30 (70-30) 100 UNIT/ML 0 subcutaneously 64 in AM and 124 in PM Active Gemfibrozil 600 MG take 1 tablet by twice daily for 90 days Orally Twice a day Active Protonix 40 MG 1 tab(s) orally Once a day; Duration: 90 days Active Aspirin 81 MG 1 tab(s) orally once a day Active Plavix 75 MG 1 tab(s) orally once a day Active Lisinopril 20 MG 1 tablet Orally Once a day; Duration: 90 days Active Nitroglycerin 0.4 MG 1 tab(s) sublingual ly every 5 minutes prn 06/09/2021 Active Problems Problem Type SNOMED Code ICD Code Onset Dates Problem Status W/U Status Risk Notes Problem Inflammatory polyarthropathy (425736041) Inflammatory polyarthropathies (M06.4) Active confirmed Problem Obese class II ([id number]) BMI 37.0-37.9, adult (Z68.37) Active confirmed Vital Signs Blood pressure systolic 126 mm Hg 07/26/19 25 Blood pressure diastolic 90 mm Hg 025 Heart Rate 80 /min 07/25/2024 Height 65 in 07/25/2024 Weight 222.4 lbs 07/25/2024 BMI 37.01 kg/m2 07/25/2024 Encounters Encounter Location Date Provider [facility] [address] [id number] 07/25/2024 Shawna Mohamud Adult general medica l examination Z00.00 ; Benign cyst of skin L72.9 ; 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 I25.119 ; Mixed hyperlipidemia E78.2 ; Type 2 diabetes mellitus with other circulatory complications E11.59 ; Situational depression F43.21 ; HTN (hypertension) I10 ; GERD (gastroesophageal reflux disease) K21.9 ; Inflammatory polyarthropathies M06.4 ; BMI 37.0-37.9, adult Z68.37 ; Type 2 diabetes mellitus without complication, unspecified whether chcf insulin use E11.9 and Hyperlipidemia, unspecified hyperlipidemia type E78.5 Assessments Encounter Date Diagnosis (ICD Code) Assessment Notes Treatment Notes Treatment Clinical Notes Section Notes 07/25/2024 Adult general medica l examination (ICD-10 - Z00.00) Patient instructed to return to office Annually for Annual Wellness Visits to include annual screenings of Pain assessment, Functional Ability assessment, Cognitive Ability assessment, Fall Risk assessment, Depression screening and Bladder control screening. 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 (ICD-10 - I25.119) continue to follow with cardiology 07/25/2024 Mixed hyperlipidemia (ICD-10 - E78.2) 07/25/2024 Type 2 diabetes mellitus with other circulatory complications (ICD-10 - E11.59) he will continue with Endo appts for diabetic control; we discussed at length his weight gain and elevated BS; he seems to be very active; we discussed food choices and meal planning; he often referred to his managing all; encouraged him to manage dietary choices himself 07/25/2024 Situational depression (ICD-10 - F43.21) depression noted; he declines med change or increase in med 07/25/2024 HTN (hypertension) (ICD-10 - I10) 07/25/2024 GERD (gastroesophageal reflux disease) (ICD-10 - K21.9) 07/25/2024 Inflammatory polyarthropathies (ICD-10 - M06.4) will suggest xrays and additional orth appt 07/25/2024 BMI 37.0-37.9, adult (ICD-10 - Z68.37) 07/25/2024 Type 2 diabetes mellitus without complication, unspecified whether chcf insulin use (ICD-10 - E11.9) 07/25/2024 Hyperlipidemia, unspecified hyperlipidemia type (ICD-10 - E78.5) 07/25/2024 Other has annual eye exams Plan Of Treatment Medication Medication Name Sig Start Date Stop Date Notes Atorvastatin Calcium 80 MG TAKE 1 TABLET BY MOUTH ONCE DAILY AT BEDTIME Orally Once a day; Duration: 90 days Sertraline HCl 50 MG 1 tablet Orally Onc e a day; Duration: 90 days Coreg 3.125 MG 1 tablet with food O rally Twice a day; Duration: 90 days 03/12/2016 metFORMIN HCl 1000 MG 1 tab(s) orally BID 08/20/2016 NovoLIN 70/30 (70-30) 100 UNIT/ML 0 subcutaneously 64 in AM and 124 in PM Gemfibrozil 600 MG take 1 tablet by paxton th twice daily for 90 days Orally Twice a day Protonix 40 MG 1 tab(s) orally Once a day; Duration: 90 days Aspirin 81 MG 1 tab(s) orally once a day Plavix 75 MG 1 tab(s) orally once a day Lisinopril 20 MG 1 tablet Orally Once a day; Duration: 90 days Nitroglycerin 0.4 MG 1 tab(s) sublingual ly every 5 minutes prn 06/09/2021 Treatment Notes Assessment Notes Adult general medical examination Patien t instructed to return to office Annually for Annual Wellness Visits to include annual screenings of Pain assessment, Functional Ability assessment, Cognitive Ability assessment, Fall Risk assessment, Depression screening and Bladder control screening. Benign cyst of skin suggested wearing a wrist splint during the night and prn during the day Coronary artery disease invo lving tangirnaq coronary artery of tangirnaq heart with angina pectoris continue to follow with cardiology Type 2 diabetes mellitus wit h other circulatory complications he will continue with Endo appts for diabetic control; we discussed at length his weight gain and elevated BS; he seems to be very active; we discussed food choices and meal planning; he often referred to his managing all; encouraged him to manage dietary choices himself Situational depression depression noted; he declines med change or increase in med Inflammatory polyarthropathies will sugg est xrays and additional orth appt Other has annual eye exams Referrals Referral Date Details 07/25/2024 07/25/2024, enlargin g right wrist cyst with increasing neuropathy Next Appt Details Follow Up: 4 Weeks, Reason: Progress Notes * Kwan MANDELBelemOB:1975 (49 yo M)Acc No.[id number]:07/25/2024 Annual Wellness Visit Patient: Keshav YIP Provider: PRINCESS Tucker :1975 A ge:49 Y S ex:Male Date:07/25/2024 Address:[address] [place], [place] [address], [id number] Pcp:Diana Chapman Subjective: * Chief Complaints: * 1 . 3 month check and AWV. 2. Due for Diabetic Eye Exam. 3. Ask patient if he has completed ordered Cologuard. * HPI: H PI: He has experienced several injuries to the right arm and hand throughout his years; the nodule on the inner wrist is painful with movement or touch and radiates up the arm and down to his finger tips. Patient is here today for a scheduled 3-month check up and a Medicare Annual Wellness Visit. Pt needs refills of Lisinopril, Pantoprazole, Atorvastatin, Sertraline, and Carvedilol. Pt sts that his insulin was increased and he sts that he does not feel like it is helping. Pt sts that he tries to stay active and does not eat much but sts that his glucose is still not controlled well. Pt sts that he had labs drawn this morning. W rist/Hand: c/o tingling numbness P t c/o tingling and numbness in the right hand. Pt sts that he drops things often and feels that he has weakness in his hand. Pt sts that he has noticed swelling in his hand as well. * ROS: R ESPIRATORY: Shortness of breath y es, a t baseline. C hest pain?yes. C ough y es. C ARDIOLOGY: Positive for w as last seen by cardiology 01/26/2024; note reviewed; received Leqvio injection. C hest pain y es, l ast NTG was 2-3 months ago; sees cardiology annually. n o L eg edema. S hortness of breath y es. ? D ERMATOLOGY: no R mara. n o H raffi. E NDOCRINOLOGY: Diabetes yes, e levated BS ; he has requent telehealth visits with endo and reports BS to them; Insulin has been increased ; was 196 this AM. ? G ASTROENTEROLOGY: Positive for e ats and drinks well; likes the carbs and sweets; eats most of the time on the go. n o N ausea. n o V omiting. n o D iarrhea. M USCULOSKELETAL: Back pain yes. J oint pain y es, r ight knee and hand pain. U ROLOGY: no D ifficulty urinating. n o B lood in urine. * Medical History: A chichi reflux, Hyperlipidemia, Hypertension, Type 2 diabetes, Psoriasis, 12/01 normal carotid duplex, 12/01 normal MRI, COVID 19 Vaccination, J&J 4/7/21, COVID 19 infection, Mar 2021, CAD. * Surgical History: l t arm sx (pins and screws) , back X 3 2007, stent 08/2011, Hernia Surgery 08/07. * Hospitalization/Major Diagno stic Procedure: s ee above , [facility] stay- Chest pain 12/25/14, [facility]- Chest pain 12/26-12/04. * Family History: F ather: alive 68 yrs. M other: alive 70 yrs, diagnosed with Diabetes, Cancer. 2 brother(s) [...] 2. Alcohol: No. Sexually active: no.. * Medications: T aking Plavix 75 MG Tablet 1 tab(s) orally once a day , Taking Aspirin 81 MG Tablet Delayed Release 1 tab(s) orally once a day , Taking Nitroglycerin 0.4 MG Tablet Sublingual 1 tab(s) sublingually every 5 minutes prn , Taking Coreg 3.125 MG Tablet 1 tablet with food Orally Twice a day , Taking Gemfibrozil 600 MG Tablet take 1 tablet by mouth twice daily for 90 days Orally Twice a day , Taking NovoLIN 70/30 (70- 30) 100 UNIT/ML Suspension 0 subcutaneously 64 in AM and 124 in PM , Taking metFORMIN HCl 1000 MG Tablet 1 tab(s) orally BID , Taking Fenofibrate Micronized 200 MG Capsule 1 capsule with a meal Orally Once a day , Taking Potassium Chloride ER 10 MEQ Capsule Extended Release 1 cap(s) orally Once a day , Notes to Pharmacist: pt needs appt, Taking Lisinopril 20 MG Tablet TAKE 1 TABLET BY MOUTH ONCE DAILY FOR 15 DAYS , Taking Protonix 40 MG Tablet Delayed Release 1 tab(s) orally 2 times a day , Taking Sertraline HCl 50 MG Tablet 1 tablet Orally Once a day , Taking Atorvastatin Calcium 80 MG Tablet TAKE 1 TABLET BY MOUTH ONCE DAILY AT BEDTIME , Discontinued Mounjaro 2.5 MG/0.5ML Solution Pen-injector 2.5 mg Subcutaneous weekly , Medication List reviewed and reconciled with the patient * Allergies: N .K.D.A. Objective: * Vitals: W t: 222.4, Temp: 98.6, BP: 126/90, HR: 80, Nurse: WMG, Ht: 65, BMI:37.01. * P ast Orders: L ab:H-CBC (Order Date - 07/25/2024) (Collection Date & Time - 07/25/2024 08:40 AM) Value Reference Range WBC 8.0 4.8-10.8 - K/mm3 RBC 5.16 4.60-6.20 - M/mm3 HGB 15.2 14.1-18.0 - g/dL HCT 44.6 42.0-52.0 - % MCV 86.4 80-94 - fl MCH 29.5 27.0-31.2 - pg MCHC 34.1 31.8-35.4 - g/dL RDW 11.9 11.5-17.5 - % PLT 265 142-424 - K/mm3 MPV 10.1 7.4-10.4 - fl NE% 60.3 37.0-80.0 - % LY% 30.3 10-50 - % MO% 7.3 1.7-9.3 - % EO% 1.3 0.1-12.0 - % BA% 0.5 0.1-2.0 - % NE# 4.8 1.8-7.8 - K/mm3 LY# 2.4 0.7-4.5 - K/mm3 MO# 0.6 0.1-1.0 - K/mm3 EO# 0.1 0.0-0.4 - Kmm3 BA# 0.0 0-0.2 - K/mm3 RDW-SD 37.9 - fL NRBC% 0 - % NRBC# 0 - 10 3/uL L ab:H-Lipid Panel (Order Date - 07/25/2024) (Collection Date & Time - 07/25/2024 08:40 AM) Value Reference Range TRIG 214 H 30-150 - mg/dl CHOL 143 140-200 - mg/dl DLDL 55.26 L 100-129 - mg/dL VLDL 43 H 0-40 - mg/dL HDL 44 40-60 - mg/dl CHLHDL 3.3 1-3.5 - L ab:H-CMP (Order Date - 07/25/2024) (Collection Date & Time - 07/25/2024 08:40 AM) Value Reference Range NA 138 136-145 - mmol/L K 4.3 3.5-5.1 - mmoL/L CL 102 98-107 - mmol/L CO2 31 H 22.0-30.0 - mmol/L GAP 9.3 5-15 - mEq/L BUN 11 9-20 - mg/dl CREATT 0.60 L 0.66-1.25 - mg/dl GFRAA 173 >60 - ML/MIN EGFR 143 >60 - ml/min GLU 154 H 74-100 - mg/dl CA 9.6 8.4-10.2 - mg/dl BILIT 0.4 0.2-1.3 - mg/dl AST 32 17-59 - U/L ALT 42 12-78 - U/L TP 7.1 6.3-8.2 - g/dl ALB 4.6 3.5-5.0 - g/dl GLOB 2.5 1.3-3.2 - g/dL AGRATIO 1.8 1.1-1.8 - ALP 69 38-126 - U/L L ab:H-Glycohemoglobin A1C (Order Date - 07/25/2024) (Collection Date & Time - 07/25/2024 08:40 AM) Result: 8 Value Reference Range HGBA1C 8.0 H 4.0-6.0 - % L ab:H-PSA (Order Date - 07/25/2024) (Collection Date & Time - 07/25/2024 08:40 AM) Result: 1.1 Value Reference Range PSASC 1.1 0.0-4.0 - ng/ml * Examination: G eneral Examination: General Appearance: N AD , appears healthy , alert , pleasant , Color good-valles. H EENT: s clera and conjunctiva clear, PERRLA, TM's normal, translucent. O ral cavity: m ucosa moist and WNL , no erythema. N abby: s upple , no lymphadenopathy , thyroid normal , no carotid bruits. H eart: R RR. L ungs: C TAB A&P.?Neurologic Exam: a lert and oriented. S kin: b ilateral feet with intact skin; right wrist with 1cm tender nodule; no erythema; pain with Rom of the hand. P eripheral pulses: n ormal (2+) bilaterally. E xtremities: n o leg edema; FROM of the arms. E lbow/Arm: Elbow: r ight. F orearm/upperarm: r ight. I nspection: s ome edema , Circulation is good. P alpation: t enderness at wrist. R piter of motion: n ormal flexion and extension. c irculation: i ntact. e ntire lower arm TTP. W rist / Hand: Wrist/Hand: r ight hand with edema. R piter of motion:?restricted, painful movements. P alpation: t enderness on distal radius. S trength:?diminished mold checker. P sychology: Grooming : a dequate. E ye contact : n ormal. M ood : p leasant , hyper , smiles , jokes. * Physical Examination: G ENERAL: Pain Assessment: P ain level:8 , on a scale of 0 to 10 (10 being extreme pain); pt has ongoing pain in his back, right knee and right hand.?Functional Status Assessment: P atient response to how often physical health interferes with daiy activities:frequently Able to perform ADLs-including meal preparation, grocery shopping, housework, laundry, taking medications, or handling finances. He continues to work on the farm Cognitive Status: Alert and oriented. Ambulation Status: Fully ambulatory. F all Risk Assessment: I ndependant in ambulation, adequate lighting in home. Patient falls frequently due to righ knee giving away. D epression Screening: D enies depressed mood or anxiety. Describes emotional health as:Downhearted and blue. B ladder Control Screening: H as frequent problems. Assessment: * Assessment: 1. A dult general medical examination - Z00.00 (Primary) 2 . B enign cyst of skin - L72.9 3 . C oronary artery disease involving tangirnaq coronary artery of tangirnaq heart with angina pectoris - I25.119 4 . M ixed hyperlipidemia - E78.2 5. T ype 2 diabetes mellitus with other circulatory complications - E11.59 ? 6 . S ituational depression - F43.21 7 . H TN (hypertension) - I10? 8. G ERD (gastroesophageal reflux disease) - K21.9 9 . I nflammatory polyarthropathies - M06.4 1 0. B [place] 37.0-37.9, adult - Z68.37 ? 1 1. T ype 2 diabetes mellitus without complication, unspecified whether chcf insulin use - E11.9 1 2. H yperlipidemia, unspecified hyperlipidemia type - E78.5? Plan: * Treatment: 2. B enign cyst of skin Notes: suggested wearing a wrist splint during the night and prn during the day ? Referral To:Hand Surgery Reason:enlarging right wrist cyst with increasing neuropathy 3. C oronary artery disease involving tangirnaq coronary artery of tangirnaq heart with angina pectoris Refill Coreg Tablet, 3.125 MG, 1 tablet with food, Orally, Twice a day, 90 days, 180 Tablet, Refills 1; C ontinue Plavix Tablet, 75 MG, 1 tab(s), orally, once a day; C ontinue Aspirin Tablet Delayed Release, 81 MG, 1 tab(s), orally, once a day; C ontinue Nitroglycerin Tablet Sublingual, 0.4 MG, 1 tab(s), sublingually, every 5 minutes prn. Notes: continue to follow with cardiology 4. M ixed hyperlipidemia Refill Atorvastatin Calcium Tablet, 80 MG, TAKE 1 TABLET BY MOUTH ONCE DAILY AT BEDTIME, Orally, Once a day, 90 days, 90, Refills 1; C ontinue Gemfibrozil Tablet, 600 MG, take 1 tablet by mouth twice daily for 90 days, Orally, Twice a day. 5. T ype 2 diabetes mellitus with other circulatory complications Continue NovoLIN 70/30 Suspension, (70-30) 100 UNIT/ML, 0, subcutaneously, 64 in AM and 124 in PM;?Continue metFORMIN HCl Tablet, 1000 MG, 1 tab(s), orally, BID. Notes: he will continue with Endo appts for diabetic control; we discussed at length his weight gain and elevated BS; he seems to be very active; we discussed food choices and meal planning; he often referred to his managing all; encouraged him to manage dietary choices himself 6. S ituational depression Refill Sertraline HCl Tablet, 50 MG, 1 tablet, Orally, Once a day, 90 days, 90, Refills 1. ? Notes: depression noted; he declines med change or increase in med 7. H TN (hypertension) Refill Lisinopril Tablet, 20 MG, 1 tablet, Orally, Once a day, 90 days, 90 Tablet, Refills 1. ? 8. G ERD (gastroesophageal reflux disease) Refill Protonix Tablet Delayed Release, 40 MG, 1 tab(s), orally, Once a day, 90 days, 90 Tablet, Refills 1. 9. I nflammatory polyarthropathies Notes: will suggest xrays and additional orth appt 10. O thers Notes: has annual eye exams * Procedure Codes: G 0438 ANNUAL [facility] VST; PERSNL PPS INIT, G2211 Complex e/m visit add on, 1090F PRES/ABSN URINE INCON ASSESS, 3288F FALL RISK ASSESSMENT DOCD, 1170F FXNL STATUS ASSESSED, 1159F MED LIST DOCD IN RCRD, 1003F LEVEL OF ACTIVITY ASSESS, 1036F TOBACCO NON-USER, 4040F PNEUMOC IMM ORDER/ADMIN, G8752 MOST RECENT SYSTOLIC BP < 140MM HG, G8755 MOST RECENT DIASTOLIC BP >= 90MM HG, 3052F HG A1C>EQUAL 8.0%<EQUAL 9.0%, 1125F AMNT PAIN NOTED PAIN PRSNT * Preventive Medicine: Counseling: E motional health: E ncouraged to try connecting with family or friends to boost mood. B ladder control: D iscussed ways to control/manage leakage of urine. Exercise: A dvised to start, increase or maintain level of exercise/physical activity. I njury prevention: D iscussed fall prevention. Discussed need for cane/walker. Potential trip hazards discussed. Immunizations: P neumococcal u p to date. I nfluenza u p to date. Screening / Special Tests: C olonoscopy C ologuard:ordered 12/27/2023- no record testing performed; pt states he received results and they were negative. P SA n ormal. D iabetic Retinal Eye Exam H as dilated eye exam completed annually. N ephrology History?Urine M/A ordered today. L juana cancer screening r ecommended at age 50 years due to smoking history. * Follow Up: 4 Weeks * Images: Billing Information: * Visit Code: 84756 Office Visit, Est Pt., Level 4. Modifiers: 25 * Procedure Codes: G0438 ANNUAL [facility] VST; PERSNL PPS INIT. G2211 Complex e/m visit add on. 1090F PRES/ABSN URINE INCON ASSESS. 3288F FALL RISK ASSESSMENT DOCD. 1170F FXNL STATUS ASSESSED. 1159F MED LIST DOCD IN RCRD. 1003F LEVEL OF ACTIVITY ASSESS. 1036F TOBACCO NON-USER. 4040F PNEUMOC IMM ORDER/ADMIN. G8752 MOST RECENT SYSTOLIC BP < 140MM HG. G8755 MOST RECENT DIASTOLIC BP >= 90MM HG. 3052F HG A1C>EQUAL 8.0%<EQUAL 9.0%. 1125F AMNT PAIN NOTED PAIN PRSNT. * Electronic signature of Bárbara Mohamud APRN on 11/13/2024 at 08:03 AM EDT Sign off status: Pending * Provider: PRINCESS Tucker Date: 0 07/25/2024 Generated for Parveen key/Wilber/Can on: 0 11/13/2024 08:03 AM EDT History and Physical Notes * HPI (History of Present Illness) Category Sub-Category Detail Notes Category Not es Wrist/Hand tingling numbness Pt c/o tinglin g and numbness in the right hand. Pt sts that he drops things often and feels that he has weakness in his hand. Pt sts that he has noticed swelling in his hand as well HPI Patient is here today for a sche duled 3-month check up and a Medicare Annual Wellness Visit. Pt needs refills of Lisinopril, Pantoprazole, Atorvastatin, Sertraline, and Carvedilol. Pt sts that his insulin was increased and he sts that he does not feel like it is helping. Pt sts that he tries to stay active and does not eat much but sts that his glucose is still not controlled well. Pt sts that he had labs drawn this morning Physical Examination Category Sub-Category Detail Notes Section Note s GENERAL Pain Assessment: Pain level:8 , on a scale of 0 to 10 (10 being extreme pain); pt has ongoing pain in his back, right knee and right hand Functional Status Assessment: Patient re sponse to how often physical health interferes with daiy activities:frequentlyAble to perform ADLs-including meal preparation, grocery shopping, housework, laundry, taking medications, or handling finances. He continues to work on the farmCognitive Status: Alert and oriented.Ambulation Status: Fully ambulatory Fall Risk Assessment: Independant in amb ulation, adequate lighting in home. Patient falls frequently due to righ knee giving away Depression Screening: Denies depressed m ood or anxiety. Describes emotional health as:Downhearted and blue Bladder Control Screening: Has frequent problems Examination Category Sub-Category Detail Notes Category Not es General Examination HEENT: sclera and c onjunctiva clear, PERRLA, TM's normal, translucent Heart: RRR Lungs: CTAB A&P Extremities: no leg edema; FROM o f the arms General Appearance: NAD , appears health y , alert , pleasant , Color good-valles Skin: bilateral feet with intact skin; right wrist with 1cm tender nodule; no erythema; pain with Rom of the hand Neurologic Exam: alert and oriented Neck: supple , no lymphade nopathy , thyroid normal , no carotid bruits Oral cavity: mucosa moist and WNL , no erythema Peripheral pulses: normal (2+) bilatera lly Psychology Grooming : adequate Eye contact : normal Mood : pleasant , hyper , s miles , jokes Elbow/Arm Palpation: tenderness at wrist entire lower arm TTP Elbow: right Inspection: some edema , Circula tion is good Range of motion: normal flexion and e xtension Forearm/upperarm: right circulation: intact Wrist / Hand Wrist/Hand: right hand with edema Range of motion: restricted, painful movements Palpation: tenderness on distal radius Strength: diminished mold checker Consultation Request Notes Referral Date Referring Provider Referred Provider Not es 07/25/2024 Shawna Mohamud , enlarging right wrist cyst with increasing neuropathy
--- OUTSIDE RECORDS SUMMARY | 2024-11-13 08:03 | XMS_ITS | Encounter Summary ---
Author Organization Healthcare Address [address] [place] [address] Care Team Providers Care Technology Applications Consultant Name Role Phone Jeremy Chapman MD Primary Care Provider [phone] Encounter Details Date Type Department Care Team (Late st Contact Info) Description 10/04/2024 Telephone [facility] [address] [place] [address] Kristina William, [place] [address] Social History Tobacco Use Types Packs/Day Years [...] encounter Miscellaneous Notes * Telephone Encounter - Kristina William, PharmD - 10/04/2024 10:05 AM EDT Novolin 70/30 vials are unavailable to order from any of our wholesalers and we only have 1 vial left in stock. It is not expected to be back in stock until early October. I asked other pharmacies if they could loan us some for his fill, but no one had any to send us. We are able to order Ftymybh55/30 vials and Novolin 70/30 FlexPens. Can we switch to a different product until Novolin 70/30 isavailable? documented in this encounter Plan of Treatment Not on file documented as of this encounter Visit Diagnoses Diagnosis Type 2 diabetes mellitus with other specified complication, with long-term current use of insulin ([facility])- Primary documented in this encounter Additional Health Concerns Assessment Noted Time A fall risk assessment has been complete d for the patient 04/28/2022 2:35 PM EST A Body Mass Index follow-up plan has been documented for the patient 08/30/2024 3:12 PM EDT documented as of this encounter Care Teams Technology Applications Consultant Relationship Specialty Start Date End Date Jeremy Chapman MD [address] [place] [address] [place] [address] PCP - General 08/02/20 documented as of this encounter
--- OUTSIDE RECORDS SUMMARY | 2024-11-13 08:03 | XMS_ITS | Clinical Summary ---
Author Organization [facility] Address [address] [place] [address] Care Team Providers Care Gluing Crew Leader Name Role Phone Jeremy Chapman MD Primary Care Provider [phone] Allergies No known active allergies Medications atorvastatin [...] 1 (one) time each day. 2 Active Insulin Syringe-Needle U-100 (UltiCare Insulin Syringe) 30G X 5/16 1 ML misc Use to inject insulin two times a day 100 each 4 Active metFORMIN XR (Glucophage-XR) 500 MG 24 hr tabletIndicatio ns:Type 2 diabetes mellitus with other specified complication, with long-term current use of insulin (CMS/HCC) Take 2 tablets (1,000 mg) by mouth 2 (two) times a day with meals. Do not crush, chew, or split. 360 tablet 3 5 04/14/19 Active Alpha-Lipoic Acid 600 MG capsuleIndicati ons:Neuropathy Take 1 capsule by mouth 1 (one) time each day. 90 capsule 3 5 04/14/19 Active Additional Information Patient not taking.Reported on 08/30/2024 cyanocobalamin 50 MCG tablet Take 1 tablet by mouth daily. Active insulin NPH-insulin regular (HumuLIN 70/30) (70-30) 100 UNIT/ML injection vialIndications :Type 2 diabetes mellitus with other specified complication, with long-term current use of insulin ([facility]) Inject 60u in the morning and 120u in the evening and adjust as directed. 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 Neuropathy 12/25/2022 Type 2 diabetes mellitus, wi th long-term current use of insulin 07/06/2021 Hypertension 07/06/2021 Hyperlipidemia 07/06/2021 Obesity (BMI 30-39.9) 07/06/2021 Encounters Date Type Department Care Team Description 10/04/2024 Telephone [facility] [address] [place] [address] Kristina William, PharmD 08/30/2024 3:10 PM EDT [facility] [address] [place] [address] Dewayne Nelson, PA Right wrist pain (Primary Dx); Ganglion cyst of wrist, right; Entrapment neuropathy 08/30/2024 2:43 PM EDT - 08/30/2024 11:59 PM EDT Hospital Encounter [facility] [address], [address] [place] [address] Right wrist pain Discharge Disposition: Home or Self Care 08/30/2024 Travel from Last 3 Months Family History Medical History Relation Name Comments Hypertension Father Alondra Edwards Lung cancer Father Alondra Edwards Diabetes Mother Mom Hyperlipidemia Mother Mom Hypertension Mother Mom Relation Name Status Comments Father Alondra Edwards Mother Mom Social History Tobacco Use Types Packs/Day Years [...] Sign Reading Time Taken Comments Blood Pressure 143/83 08/30/2024 2:39 PM EDT Pulse 90 08/30/2024 2:39 PM EDT Temperature - - Respiratory Rate - - Oxygen Saturation 94% 08/30/2024 2:39 PM EDT Inhaled Oxygen Concentration - - Weight 100 kg (221 lb 1.9 oz) 08/30/2024 2:39 PM EDT Height 165.1 cm (5' 5 ) 08/30/2024 2:39 PM EDT Body Mass Index 36.8 08/30/2024 2:39 PM EDT Plan of Treatment Health Maintenance Due Date Last Done Comments [facility]-Depression Screening 1975 [facility]-Diabetes: Hemoglobin A1C 1975 [facility]-HIV Screening 1975 [facility]-Hepatitis C Screening 1975 [facility]-Medicare Annual Wellness (AWV) 1975 [facility]-/Child/Adol SDOH Screenings 1975 Diabetes: Dental Exam 06/07/1985 [facility]- SDOH Screenings 06/07/1993 [facility]-Adult SDOH Screenings 06/07/1993 [facility]-DTaP,Tdap,and Td Vaccine s (1 - Tdap) 06/07/1994 [facility]-Hepatitis B Vaccines (1 of 3 - + 3-dose series) 06/07/1994 CT Colonography 06/07/2020 Colonoscopy 06/07/2020 FIT-DNA 06/07/2020 FIT 06/07/2020 FOBT 06/07/2020 Sigmoidoscopy 06/07/2020 [facility]-Colorectal Cancer Screening 06/07/2020 [id number] Vaccine (2 - Sana risk series) 07/24/2020 06/26/2020 [facility]-Influenza Vaccine (#1) 11/20/202401/09, 01/23/2013, 12/09/2011 [facility]-Zoster Vaccines (1 of 2) 06/07/2025 [facility]-Pneumococcal Vaccine: Pediatrics (0 to 5 Years) and At-Risk Patients (6 to 49 Years) Completed 01/09/2022, 12/09/2011 [facility]-Obesity Intervention Completed 025, 04/14/2024, 12/25/2022 HPV Vaccines Aged Out No longer eligi ble based on patient's age to complete this topic [facility]-HIB Vaccines Aged Out No longer e [...] on patient's age to complete this topic Procedures Procedure Name Priority Date/Time Associated Diagnosis Comments XR WRIST RIGHT 3+ VIEWS Routine 08/30/2024 2:46 PM EDT Right wrist pain from Last 3 Months Results * XR Wrist Right 3+ Views (08/30/2024 2:46 PM EDT) Anatomical Region Laterality Modality Upper Extremities, Wrist Right Digital Radiography Impressions 08/30/2024 2:51 PM EDT No acute bony findings. CRITICAL RESULT: No. COMMUNICATION: Per this written report. Drafted by Dewayne Dominguez MD on 08/30/2024 2:50 PM Final report signed by Dewayne Dominguez MD on 08/30/2024 2:51 PM Narrative 08/30/2024 2:51 PM EDT CLINICAL INDICATION: pain TECHNIQUE: XR WRIST RIGHT 3+ VIEWS COMPARISON: None. FINDINGS: Osseous mineralization is within normal limits. No significant swelling. No fracture or dislocation. Procedure Note Dewayne Dominguez MD - 08/30/2024 CLINICAL INDICATION: pain TECHNIQUE: XR WRIST RIGHT 3+ VIEWS COMPARISON: None. FINDINGS: Osseous mineralization is within normal limits. No significant swelling.No fracture or dislocation. IMPRESSION: No acute bony findings. CRITICAL RESULT: No. COMMUNICATION: Per this written report. Drafted by Dewayne Dominguez MD on 08/30/2024 2:50 PM Final report signed by Dewayne Dominguez MD on 08/30/2024 2:51 PM us Dewayne KAUFFMAN IMG XR PROCEDURES Final Result from Last 3 Months Insurance [facility] MEDICARE Care Teams Gluing Crew Leader Relationship Specialty Start Date End Date Jeremy Chapman MD [address] [place] [address] [place], [place] [address] PCP - General 08/02/20
--- OUTSIDE RECORDS SUMMARY | 2024-11-13 08:04 | XMS_ITS | Patient Health Record ---
Author Organization [facility] Address [address] [place] [id number] Care Team Providers Care House Decorator Name Role Phone Diana Chapman Primary Care Provider MohamudImmanuelShawna Unavailable [phone] Allergies No Known Allergies Results Component Value Reference Range Notes CBC Venipuncture (in house) Reviewed date:12/28/2023 12:54:59 [...] - 38 platlet 287 100 - 400 Glycohemoglobin A1c (in hous e) Reviewed date:12/28/2023 12:55:17 PM Interpretation:8.3% Performing Lab: Notes/Report: 8.3% glycohemoglobin 8.3% 5 - 6.5 % P-Comprehensive Metabolic Pa viv (CMP) Reviewed date:12/28/2023 12:55:56 PM Interpretation:Na 134, cl 96, gluc 111, Cr 0.68, alt 72 Performing Lab: Notes/Report: Test performed by [facility] [address] [place] [address] , [address], [place] [address] Alton Nuñez MD, Detonator Maker CLIA: [id number] Sodium 134 135-145 mmol/L Potassium 4.4 3.5-5.3 [...] 0.3 <0.2-1.2 mg/dL A/G Ratio 1.5 1.1-2.5 P-Lipid Panel Reviewed date:12/28/2023 12:55:37 PM Interpretation:chol 502, trigs 1057, hdl 32, chol/hdl 15.69, non-hdl 470 Performing Lab: Notes/Report: Test performed by [facility], [address] , [address], [place] [address] Alton Nuñez MD, Detonator Maker CLIA: [id number] Cholesterol 502 <200 mg/dL Triglycerides 1057 <150 [...] SEE COMMENT Units: mg/dL % Change: - H-BMP Reviewed date:12/22/2023 10:47:46 AM Interpretation: Performing [...] Delta: 76 on CA 8.7 8.4-10.2 mg/dl H-Magnesium Reviewed date:12/21/2023 08:39:19 AM Interpretation: Performing Lab: Notes/Report: MG 1.9 1.6-2.3 mg/dl H-CMP Reviewed date:12/21/2023 08:39:19 AM Interpretation: Performing Lab: Notes/Report: NA 136 136-145 mmol/L K 3.2 3.5-5.1 mmoL/L CL 100 98-107 mmol/L CO2 24 22.0-30.0 mmol/L GAP 15.2 5-15 mEq/L BUN 12 9-20 mg/dl CREATT 0.50 0.66-1.25 mg/dl Delta: 0.70 on 09/30/24-1950 CRCLE 244 50-200 mL/min GFRAA 215 >60 [...] AGRATIO 1.2 1.1-1.8 ALP 96 38-126 U/L H-CBC Reviewed date:12/21/2023 08:39:19 AM Interpretation: Performing [...] 0.1 0.0-0.4 K/mm3 BA# 0.1 0-0.2 K/mm3 HCVABRFXRNA Reviewed date:12/22/2023 10:47:46 AM Interpretation: Performing Lab: Notes/Report: TESTINFO Comment . Not infected with HCV unless early or acute infection is suspected (which may be delayed in an immunocompromised individual), or other evidence exists to indicate HCV infection. Performed at: [facility] [address] [id number] Form Stripper: Sebastian Milan PhD, Phone: [phone] HCVAB2 Non Reactive Non Reactive M-HIV (1&2) Antibody Rapid Reviewed date:12/21/2023 10:24:08 AM Interpretation: Performing Lab: Notes/Report: [id number] NONREACTIVE NONREACTIVE H-CBC Reviewed date:07/26/2024 08:16:23 AM Interpretation: Performing Lab: Notes/Report: WBC 8.0 4.8-10.8 K/mm3 RBC 5.16 4.60-6.20 M/mm3 HGB 15.2 14.1-18.0 g/dL HCT 44.6 42.0-52.0 % MCV 86.4 80-94 fl MCH 29.5 27.0-31.2 pg MCHC 34.1 31.8-35.4 g/dL RDW-SD 37.9 RDW 11.9 11.5-17.5 % PLT 265 142-424 K/mm3 MPV 10.1 7.4-10.4 fl NE% 60.3 37.0-80.0 % LY% 30.3 10-50 % MO% 7.3 1.7-9.3 % EO% 1.3 0.1-12.0 % BA% 0.5 0.1-2.0 % NRBC% 0 NE# 4.8 1.8-7.8 K/mm3 LY# 2.4 0.7-4.5 K/mm3 MO# 0.6 0.1-1.0 K/mm3 EO# 0.1 0.0-0.4 Kmm3 BA# 0.0 0-0.2 K/mm3 NRBC# 0 H-MICROALB Reviewed date:08/04/2024 02:51:07 PM Interpretation: Performing Lab: Notes/Report: MICROALB < 6.000 0-16.7 mg/L H-Lipid Panel Reviewed date:07/26/2024 08:17:02 AM Interpretation: Performing Lab: Notes/Report: Patient Fasting? Y TRIG 214 30-150 mg/dl CHOL 143 140-200 mg/dl DLDL 55.26 100-129 mg/dL VLDL 43 0-40 mg/dL HDL 44 40-60 mg/dl CHLHDL 3.3 1-3.5 H-CMP Reviewed date:07/26/2024 08:17:32 AM Interpretation: Performing Lab: Notes/Report: NA 138 136-145 mmol/L K 4.3 3.5-5.1 mmoL/L CL 102 98-107 mmol/L CO2 31 22.0-30.0 mmol/L GAP 9.3 5-15 mEq/L BUN 11 9-20 mg/dl CREATT 0.60 0.66-1.25 mg/dl GFRAA 173 >60 ML/MIN EGFR 143 >60 ml/min GLU 154 74-100 mg/dl CA 9.6 8.4-10.2 mg/dl BILIT 0.4 0.2-1.3 mg/dl AST 32 17-59 U/L ALT 42 12-78 U/L TP 7.1 6.3-8.2 g/dl ALB 4.6 3.5-5.0 g/dl GLOB 2.5 1.3-3.2 g/dL AGRATIO 1.8 1.1-1.8 ALP 69 38-126 U/L H-Glycohemoglobin A1C Reviewed date:07/26/2024 08:18:14 AM Interpretation:8 Performing Lab: Notes/Report: HGBA1C 8.0 4.0-6.0 % < 6% Non-Diabetic Level < 7% Controlled Diabetic Level > 8% Poorly Controlled Diabetic Level H-PSA Reviewed date:07/26/2024 08:17:54 AM Interpretation:1.1 Performing Lab: Notes/Report: PSASC 1.1 0.0-4.0 ng/ml H-Creatinine Urine, random Reviewed date:08/24/2024 06:19:28 PM Interpretation: Performing Lab: Notes/Report: UCREAT 39 Not Estab. mg/dL Random urine reference range not established. 24 hour urine samples recommended. Reason For Referral Reason enlarging right wris t cyst with increasing neuropathy Diagnosis 1 Benign cyst of skin (L72.9) Referral Organization [facility] Referring Provider First Name Shawna Referring Provider Last Name One[place] Referring Provider Speciality Family Jagdeep decker Referred Provider Specialty Hand Surgery General Notes Amita Cosme 2024 11:37:07 AM > sent referral to [facility] through website Referral Priority Routine Medications Medication SIG (Take, Route, Frequency, Duration) Notes Start Date End Date Status Protonix 40 MG 1 tab(s) orally Once a day; Duration: 90 days Active Aspirin 81 MG 1 tab(s) orally once a day Active Plavix 75 MG 1 tab(s) orally once a day Active Coreg 3.125 MG 1 tablet with food Orally Twice a day; Duration: 90 days 03/12/2016 Active Lisinopril 20 MG 1 tablet Orally Once a day; Duration: 90 days Active metFORMIN HCl 1000 MG 1 tab(s) orally BID 08/21/19 17 Active NovoLIN 70/30 (70-30) 100 UNIT/ML 0 subcutaneously 64 in AM and 124 in PM Active Gemfibrozil 600 MG take 1 tablet by paxton th twice daily for 90 days Orally Twice a day Active Nitroglycerin 0.4 MG 1 tab(s) sublingual [...] a day; Duration: 30 day(s) 12/28/2023 Active Immunizations Vaccine Route Administration Date Status Comme nts xFluzone Intradermal (18-64yrs)-trivalen t-medicare pts ID Intradermal 12/09/2011 Administered xFluzone (6mos and older)-trivalent IM Intramuscular 01/23/2013 Administered Prevnar (PCV20) Unknown 01/09/2022 Administered PNEUMOVAX 23 VACCINE IM Intramuscular 12/09/2011 Administered Fluzone Quad-Medicare (6months&older) IM Intramuscular 12/04/2014 Administered Given by Sadie Fluzone Quad-Medicare (6months&older) IM Intramuscular 01/06/2016 Administered Fluzone Quad (6months&older) IM Intramuscular 12/08/2016 Administered Fluzone Quad (6months&older) IM Intramuscular 12/05/2018 Administered Fluzone Quad (6months&older) IM Intramuscular 12/27/2023 Administered Fluzone PF Quad (6-35 months) Unknown 12/27/2019 Administered Fluzone PF Quad (6-35 months) Unknown 01/09/2022 Administered COVID 19 Sana Unknown 06/26/2020 Administered Problems Problem Type SNOMED Code ICD Code Onset Dates Problem Status W/U Status Risk Notes Problem Gastroesophageal reflux disease (018195486) GERD (gastroesophageal reflux disease) (K21.9) Active confirmed Problem Peripheral circulatory disorder associated with diabetes mellitus (674317104) Type 2 diabetes mellitus with other circulatory complications (E11.59) Active confirmed Problem Hyponatremia (58910604) Hyponatremia (E87.1) Active confirmed Problem Hypertension (68932980) HTN (hypertension) (I10) Active confirmed Problem Mixed hyperlipidemia (377431369) Mixed hyperlipidemia (E78.2) Active confirmed Problem Primary insomnia (3042036) Primary insomnia (F51.01) Active confirmed Problem Onychomycosis (635610478) Onychomycosis (B35.1) Active confirmed Problem Male erectile disorder (064577998) Male erectile disorder (N52.9) Active confirmed Problem Gastroesophageal reflux disease without esophagitis (911003267) Gastroesophageal reflux disease without esophagitis (K21.9) Active confirmed Problem Reactive depression (situational) (55795306) Situational depression (F43.21) Active confirmed Problem Depression (874848896) Depression (F32.9) Active confirmed Problem Unstable angina co-occurrent and due to coronary arteriosclerosis (disorder) (05039425316443475 ) Atherosclerosis of [place] coronary artery of [place] heart with unstable angina pectoris (I25.110) Active confirmed Problem Hyperlipidaemia (06943494) Hyperlipidemia, unspecified hyperlipidemia type (E78.5) Active confirmed Problem Long-term current use of insulin (471650305) Current use of insulin (Z79.4) Active confirmed Problem Obese class II (409227175451731) BMI 37.0-37.9, adult (Z68.37) Active confirmed Problem Atherosclerotic heart disease of [place] coronary artery without angina pectoris (183049734034877) Atherosclerosis of [place] coronary artery without angina pectoris, unspecified whether [place] or transplanted heart (I25.10) Active confirmed Problem Angina (097921655) Coronary marylou ry disease involving [place] coronary artery of [place] heart with angina pectoris (I25.119) Active confirmed Problem Spigelian hernia (009974908) 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) Active confirmed Problem Polyneuropathy due to diabetes mellitus type I (087250144) Diabetic 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) Active confirmed Problem Type II diabetes mellitus without complication (290551123) Type 2 diabetes mellitus without complication, unspecified whether custodial insulin use (E11.9) Active confirmed Problem 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 [address] [place] [id number] 12/27/2023 Shwana Mohamud Colon cancer screeni Z12.11 ; Stable angina I20.89 ; Type 2 diabetes mellitus without complication, unspecified whether buttermaker helper insulin use E11.9 ; Hyperlipidemia, unspecified hyperlipidemia type E78.5 ; Atherosclerosis of [place] coronary artery without angina pectoris, unspecified whether [place] or transplanted heart I25.10 ; Hypokalemia E87.6 ; Current use of insulin Z79.4 ; Coronary artery disease involving [place]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, angina presence unspecified I25.811 ; GERD (gastroesophageal reflux disease) K21.9 ; Depression F32.9 and HTN (hypertension) I10 [facility] [address] [facility] [address] [place], [place] [id number] 07/25/2024 Shawna Mohamud Adult general medica l examination Z00.00 ; Benign cyst of skin L72.9 ; Coronary artery disease involving [place] coronary artery of [place] heart with angina pectoris I25.119 ; Mixed hyperlipidemia E78.2 ; Type 2 diabetes mellitus with other circulatory complications E11.59 ; Situational depression F43.21 ; HTN (hypertension) I10 ; GERD (gastroesophageal reflux disease) K21.9 ; Inflammatory polyarthropathies M06.4 ; BMI 37.0-37.9, adult Z68.37 ; Type 2 diabetes mellitus without complication, unspecified whether custodial insulin use E11.9 and Hyperlipidemia, unspecified hyperlipidemia type E78.5 [facility] [address] [facility] [address] [place], [place] [id number] 12/27/2023 Diana Chapman [facility] [address] [facility] [address] [facility] [address] [place], [place] [id number] 12/27/2023 Shawnapedro pablo Mohamud [facility] [address] [facility] [address] [place] [phone] 12/28/2023 Shawnapedro pablo Mohamud [facility] [address] [facility] [address] [place] [id number] 02/23/2024 Diana Chapman [facility] [address] [facility] [address] [place] [id number] 04/24/2024 Diana Chapman [facility] [address] [facility] [address] [facility] [address] [place] [id number] 09/18/2024 Diana Chapman GERD (gastroesophage al reflux disease) K21.9 Assessments Encounter Date Diagnosis (ICD Code) Assessment Notes Treatment Notes Treatment Clinical Notes Section Notes 12/27/2023 Colon cancer screening (ICD-10 - Z12.11) 12/27/2023 Stable angina (ICD-1 0 - I20.89) pt agrees to make Fu appt [facility] his executive legal secretary 07/25/2024 Adult general medica l examination (ICD-10 - Z00.00) Patient instructed to return to office Annually for Annual Wellness Visits to include annual screenings of Pain assessment, Functional Ability assessment, Cognitive Ability assessment, Fall Risk assessment, Depression screening and Bladder control screening. 07/25/2024 Benign cyst of skin (ICD-10 - L72.9) suggested wearing a wrist splint during the night and prn during the day 09/18/2024 GERD (gastroesophageal reflux disease) (ICD-10 - K21.9) 07/25/2024 Coronary artery disease involving [place] coronary artery of [place] heart with angina pectoris (ICD-10 - I25.119) continue to follow with cardiology 12/27/2023 Type 2 diabetes mellitus without complication, unspecified whether custodial insulin use (ICD-10 - E11.9) discussed dietary changes; he has already made some; also to stop alcohol; would like to try [place] ; will fax to pharm to see if covered 12/27/2023 Hyperlipidemia, unspecified hyperlipidemia type (ICD-10 - E78.5) [facility] would not fill Gemfibrozil with the statin 07/25/2024 Mixed hyperlipidemia (ICD-10 - E78.2) 07/25/2024 [...] encouraged him to manage dietary choices himself 12/27/2023 Atherosclerosis of [place] coronary artery without angina pectoris, unspecified whether [place] or transplanted heart (ICD-10 - I25.10) 12/27/2023 Hypokalemia (ICD-10 - E87.6) 07/25/2024 Situational depression (ICD-10 - F43.21) depression noted; he declines med change or increase in med 07/25/2024 HTN (hypertension) (ICD-10 - I10) 12/27/2023 Current use of insulin (ICD-10 - Z79.4) 12/27/2023 Coronary artery disease involving [place]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, angina presence unspecified (ICD-10 - I25.811) 07/25/2024 GERD (gastroesophageal reflux disease) (ICD-10 - K21.9) 12/27/2023 GERD (gastroesophageal reflux disease) (ICD-10 - K21.9) 07/25/2024 Inflammatory polyarthropathies (ICD-10 - M06.4) will suggest xrays and additional orth appt 07/25/2024 BMI 37.0-37.9, adult (ICD-10 - Z68.37) 12/27/2023 Depression (ICD-10 - F32.9) 12/27/2023 HTN (hypertension) (ICD-10 - I10) 07/25/2024 Type 2 diabetes mellitus without complication, unspecified whether buttermaker helper insulin use (ICD-10 - E11.9) 07/25/2024 Hyperlipidemia, unspecified hyperlipidemia type (ICD-10 - E78.5) 12/27/2023 Other will make eye appt 07/25/2024 Other has annual eye exams Plan Of Treatment Pending Test Test Name Order Date Arthritis profile 07/25/2024 Cologuard 12/27/2023 H-URIC ACID 07/25/2024 Insurance Providers Payer Name Payer Address Payer Phone Subscriber Number Group Number Insured Name Patient Relationship to Insured Coverage Start Date Coverage End Date [employer] (MEDICAR E) [address] [address] [place] [address] [id number] Keshav Edwards Self - patient is the insured Medical (General) History Medical History History ICD Code acid reflux hyperlipidemia hypertension type 2 diabetes Psoriasis 12/01 normal carotid duplex 12/01 normal MRI COVID 19 Vaccination, J&J 06/26/20 COVID 19 infection, Mar 2021 CAD Surgical History Surgery Date(Month/Year) lt arm sx (pins and screws) back X 3 2007 stent 08/2011 Hernia Surgery 08/07 Hospitalization History Reason Date(Month/Year) see above [facility] stay- Chest pain 12/25/14 [facility]- Chest pain 12/26-12/04
[2024-11-13 08:10] VITALS: BP 153/83; PULSE 71; RESP 18; O2SAT 97
== END 2024-11-13 08:10 | disposition home or self-care (01) ==
LOC: INF 08:01
PROVIDERS: PCP Family Medicine; Visit Provider Nurse Practitioner Family
DX: R69 Illness, unspecified (principal)
CPT/HCPCS: 96372